=== PATIENT | female | born 1970 | race Two or more races ===

== ENCOUNTER 2025-04-08 12:41 | Inpatient (IN) | payer MEDICAID, SELFPAY ==
[2025-04-08] VITALS (12 sets, daily range): BP systolic 153–198; BP diastolic 79–153; PULSE 89–118; RESP 19–28; TEMP 36.2–36.7; O2SAT 94–100; BMI 30.5
--- NOTE | 2025-04-08 12:46 | EKG_ITS ---
[facility] Test Date: 2025-04-08 Pat Name: GEOFF MCKEON Department: Room: - Gender: Female [employer]: : 1970 Requested By: Delfino Aguiar (BREAKDOWN PERSON) Order Number: [id number] Reading MD: Delfino Aguiar (BREAKDOWN PERSON) Measurements Intervals [place] Rate: 90 P: 23 CA: 107 QRS: 7 QRSD: 73 T: 142 QT: 360 QTc: 441 Interpretive Statements SINUS RHYTHM WITH SHORT CA INTERVAL POSSIBLE ANTERIOR MYOCARDIAL INFARCTION , PROBABLY OLD [30 ms Q WAVE IN V3/V4, OR R < 0.2 mV IN V4] MODERATE T-WAVE ABNORMALITY, CONSIDER LATERAL ISCHEMIA [-0.1+ mV T-WAVE IN I/aVL/V5/V6] No previous ECG available for comparison /store/S0/[id number].pdf
--- NOTE | 2025-04-08 13:06 | XR_ITS ---
Examination: Abdomen sonogram, Limited Date and time of exam: April 08, 2025 1312 hours INDICATIONS: Epigastric pain beginning one month ago Technique: Real-time byrd scale transabdominal sonographic images of the upper abdomen obtained. Findings: Normal gallbladder Normal common bile duct 0.3 cm Pancreatic head 1.6 cm Liver nonenlarged, I do not see significant fluid around the liver Normal hepatopedal portal venous flow Patent IVC IMPRESSION: Normal gallbladder Normal common bile duct No focal liver lesions I do not see definite free fluid around the liver, there is right pleural fluid
--- NOTE | 2025-04-08 13:06 | XR_ITS ---
Examination: PA lateral chest 2 views TECHNIQUE: Upright PA and lateral chest 2 views Date and time: April 08, 2025, 1357 hours INDICATIONS: Shortness of breath chest pain 1 month. FINDINGS: Mild chronic heart failure pattern Marked enlargement cardiac contour Prominent vascular congestion Fluid in the fissures and moderate to large bilateral pleural effusions Moderate osteopenia 3 mm pulmonary nodule left upper lobe IMPRESSION: While chronic heart failure pattern. Marked enlargement cardiac contour, differential would include pericardial effusion
--- NOTE | 2025-04-08 13:06 | PD.EDRME ---
Rapid Medical Screening Exam RME Arrival date/time: 04/08/25 12:41 54-year-old female presents to the Emergency Department today with complaint of bilateral lower extremity swelling and upper abdominal pain with shortness of breath Chief Complaint: Shortness of Breath/Dyspnea Vital signs: Vital Signs Temperature 98.0 F 04/08/25 12:58 Pulse Rate 92 04/08/25 12:58 Respiratory Rate 19 04/08/25 12:58 Blood Pressure 154/79 H 04/08/25 12:58 Pulse Oximetry (%) 96 04/08/25 12:58 Oxygen Delivery Method Room Air 04/08/25 12:58
[2025-04-08 13:59] LABS: Basophils # (Auto) 0.0 Thou/mm3 (0.0-0.2); Basophils % (Auto) 0 % (0-2.5); Eosinophils # (Auto) 0.0 Thou/mm3 (0.0-0.5); Eosinophils % (Auto) 0 % (0-10); Immature Granulocytes Auto 0.01 Thou/mm3 (0.00-0.00); Lymphocytes # (Auto) 0.6 Thou/mm3 (1.0-4.8); Lymphocytes % (Auto) 15 % (10-50); Mean Corpuscular HGB Conc 31.7 g/dl (31.0-37.0); Mean Corpuscular Hemoglobin 28.4 pg (25.0-35.0); Mean Corpuscular Volume 90 fL (80-100); Monocytes # (Auto) 0.3 Thou/mm3 (0.0-0.8); Monocytes % (Auto) 6 % (0-12); Neutrophils # (Auto) 3.3 Thou/mm3 (1.8-7.7); Neutrophils % (Auto) 78 % (37-80); Nucleated Red Blood Cell # 0.00 Thou/mm3 (0.00-0.00); Nucleated Red Blood Cell % 0 /100 WBC (0); Platelet Count 172 Thou/mm3 (140-440); RDW Standard Deviation 45.0 fL (36.4-46.3); Red Blood Count 2.01 Miln/mm3 (4.00-5.20); White Blood Count 4.2 Thou/mm3 (3.6-11.0)
[2025-04-08 14:08] LABS: INR 1.0 (0.9-1.3); Partial Thromboplastin Time 24.2 Seconds (22.0-36.0); Prothrombin Time 10.9 Seconds (9.0-12.2)
[2025-04-08 14:16] LABS: B-Type Natriuretic Peptide > 3280 pg/mL (0-100)
[2025-04-08 14:17] LABS: Alanine Aminotransferase 12 U/L (10-49); Albumin, Serum 3.5 gm/dL (3.5-5.0); Albumin/Globulin Ratio 1.4 (1.2-2.2); Alkaline Phosphatase 108 U/L (46-116); Anion Gap 12 (7-16); Aspartate Amino Transferase 17 U/L (0-34); BUN/Creatinine Ratio 9 Ratio (12-20); Bilirubin,Total 0.2 mg/dL (0.3-1.2); Blood Urea Nitrogen 71 mg/dL (9-23); Calcium 7.0 mg/dL (8.3-10.6); Calcium (Corrected) 7.4 mg/dL (8.5-10.1); Carbon Dioxide 22.3 mMol/L (20.0-31.0); Chloride 105 mMol/L (98-107); Creatinine (Component) 8.0 mg/dL (0.6-1.3); Estimated Creatinine Clearance 6.5 mL/min (>60); Globulin 2.5 gm/dL (2.3-3.5); Glucose 187 mg/dL (74-106); Lipase 39 U/L (12-53); Magnesium 1.9 mg/dL (1.6-2.6); Osmolality,Calculated 303 (275-295); Sodium 139 mMol/L (136-145); Total Protein 6.0 gm/dL (5.7-8.2); eGFR 6 See Note
[2025-04-08 14:20] LABS: Potassium 6.2 mMol/L (3.4-5.1); Troponin I 0.055 ng/mL (0.0-0.045)
[2025-04-08 14:36] LABS: Hematocrit 18.0 % (36.0-46.0); Hemoglobin 5.7 g/dL (12.0-16.0)
[2025-04-08 14:50] LABS: Hepatitis A Antibody IgM Non Reactive (Non React); Hepatitis B Core Antibody IgM Non Reactive (Non React); Hepatitis B Surface Antigen Non Reactive (Non React); Hepatitis C Antibody Non Reactive (Non React)
[2025-04-08 15:01] LABS: Path Review Blood Smear Sent to Pathologist
[2025-04-08 17:00] LABS: Collection Type, Urine Clean Catch
[2025-04-08 17:09] LABS: Bilirubin,Urine Negative (Negative); Blood,Urine 2+ (Negative); Clarity,Urine Clear (Clear/Hazy); Color,Urine Lt-Yellow (Lt Yel-Yel); Glucose, Urine 1+ (Negative); Ketones,Urine Negative (Negative); Leukocyte Esterase,Urine Negative (Negative); Nitrite,Urine Negative (Negative); PH,Urine 7.0 (5.0-7.0); Protein,Urine 3+ (Neg - Trace); RBC,Urine 9 /hpf (0-3); Specific Gravity,Urine 1.014 (1.001-1.035); Squamous Epithelial Cell,Urine 2 /hpf (0-5); Urobilinogen,Urine Negative mg/dL (0.0-1.0); WBC,Urine 6 /hpf (0-5)
[2025-04-08 17:24] LABS: Amphetamine/Methamp Scrn,U Negative (Negative); Barbiturate Screen,Urine Negative (Negative); Benzodiazepines Screen,Urine Negative (Negative); Benzoylecgonine Screen, Ur Negative (Negative); Fentanyl Screen,Urine Negative (Negative); Opiate Screen,Urine Negative (Negative); THC Screen,Urine Negative (Negative)
--- NOTE | 2025-04-08 19:10 | XR_ITS ---
Examination: Retroperitoneal ultrasound, complete Technique: Multiple high resolution grayscale images of the retroperitoneum obtained, including kidneys and bladder. Exam date and time:April 08, 2025 1927 hours INDICATIONS: Acute renal insufficiency on medical examination today. FINDINGS: Right kidney 9.2 cm renal cortical infarct 5 cm Left kidney 10.0 cm renal cortical 1.3 cm No hydronephrosis or renal calculi No bladder mass or bladder calculi Bladder prevoid volume 78 cc unable to void IMPRESSION: Small kidneys with bilateral renal cortical thinning No hydronephrosis
--- NOTE | 2025-04-08 19:13 | PD.EDSOB ---
ED SOB =RME/HPI General Chief Complaint: Shortness of Breath/Dyspnea Stated Complaint: SOB; CAN'T BREATH X 1 MONTH; FEET SWOLLEN Time Seen by Provider: 04/08/25 15:18 Arrival date/time: 04/08/25 12:41 RME / HPI RME / HPI Narrative: 54-year-old female presents to the Emergency Department today with complaint of bilateral lower extremity swelling and upper abdominal pain with shortness of breath. Patient has been ongoing for more than a month. Severity of symptoms moderate. Patient also complaining of dizziness, and easy fatigability. Patient used to see a power plant inspector more than a year ago however because of insurance problem stopped seeing power plant inspector. Patient is not dialysis patient told me that she is still making urine, more than 5 times a day. No fever no vomiting no chest pain. Related Data Allergies Allergy/AdvReac Type Severity Reaction Status Date / Time No Known Allergies Allergy Verified 04/08/25 12:44 Review of Systems Review of Systems Narrative Review of Systems: Review of system reviewed and within normal limits except mentioned in HPI ED Exam Narrative Physical exam: VITAL SIGNS: Reviewed. GENERAL APPEARANCE: Alert and interactive, follows commands, no acute distress, HEAD AND FACE: Non-traumatic. ENT: PERRL, pale conjunctiva, eyelid no trauma, Mucous membrane dry NECK: Supple, nontender, no nuchal rigidity. CHEST: No tenderness, no crepitus, no paradoxical movement, no retractions. LUNGS: Clear, well ventilated, symmetric, no rales, no wheezing, no ronchi, no stridor, good breath sounds bilaterally. HEART: Regular rate, regular rhythm, no murmur, no gallops. ABDOMEN: Soft, positive bowel sounds, nondistended, no guarding, nontender, no rebound, no masses, RECTAL: Deferred. GENITAL: Deferred. NEUROLOGICAL: Gross motor function intact sensory function intact, Appropriate for age. MUSCULOSKELETAL: low back nontender, full range of motion. EXTREMITIES:+ Bilateral lower extremity edema, nontender, full range of motion. SKIN: Color pale, dry, no rash, no lacerations, no abrasions, no contusions. LYMPHATICS: Deferred. Course Quality Measures none Orders Category Date Time Status Bedside Blood Glucose Q2HX3 Care 04/08/25 19:11 Active COVID-19 Screening Questionnaire NOW Care 04/08/25 19:56 Active Decision to Admit X1 Care 04/08/25 19:56 Completed EKG (ED ONLY) *Do not use* NOW Care 04/08/25 12:46 Completed Transfuse,blood/blood products ONCE Care 04/08/25 19:10 Active Consult to Nephrology Stat Cons 04/08/25 19:13 Ordered EKG (ED Only) Stat Exams 04/08/25 12:46 Draft US gall bladder Stat Exams 04/08/25 13:06 Completed US renal BI Stat Exams 04/08/25 19:10 Completed XR chest 2V Stat Exams 04/08/25 13:06 Completed B-Type Natriuretic Peptide Stat Lab 04/08/25 13:40 Completed CBC Stat Lab 04/08/25 13:40 Completed Comprehensive Metabolic Panel Stat Lab 04/08/25 13:40 Completed Drug Screen,Urine Stat Lab 04/08/25 16:37 Completed Hepatitis Acute Panel Stat Lab 04/08/25 13:40 Completed Lipase Stat Lab 04/08/25 13:40 Completed Magnesium Stat Lab 04/08/25 13:40 Completed Partial Thromboplastin Time Stat Lab 04/08/25 13:40 Completed Path Review Blood Smear Stat Lab 04/08/25 13:40 Completed Prothrombin Time with INR Stat Lab 04/08/25 13:40 Completed Troponin I Stat Lab 04/08/25 13:40 Completed Type and Screen Stat Lab 04/08/25 19:26 Results Urinalysis Stat Lab 04/08/25 16:37 Completed prbc [Red Blood Cells] Stat Lab 04/08/25 19:26 Results ALBUTEROL RT 3ml [Proventil Rt 3ml] Med 04/08/25 19:10 Discontinued 5 mg INH X1 ONE Calcium Gluc/Ns 1000MG Ivpb [Calcium Gluc/Ns 1000mg Med 04/08/25 19:12 Discontinued Ivpb] 1,000 mg in 50 ml IV X1 Dextrose 50% Syr [D50w Syringe Abboject] Med 04/08/25 19:10 Active 25 ml IV Q15MIN PRN Dextrose 50% Syr [D50w Syringe Abboject] Med 04/08/25 19:10 Active 50 ml IV Q15MIN PRN Dextrose 50% Syr [D50w Syringe Abboject] Med 04/08/25 19:46 Discontinued 50 ml IVP X1 ONE Glucagon Inj Med 04/08/25 19:10 Active 1 mg IM Q15MIN PRN Insulin Regular Med 04/08/25 19:10 Discontinued 5 unit IV X1 ONE Sod Polystyrene Sulfon Susp [Kayexalate Susp] Med 04/08/25 19:10 Discontinued 30 gm PO X1 ONE Sodium Bicarb 8.4% 50ml Vial* Med 04/08/25 19:51 Discontinued 50 meq IV X1 ONE hydrALAZINE INJ [Apresoline Inj] Med 04/08/25 19:47 Discontinued 20 mg IVP X1 ONE Vital Signs Vital signs: Vital Signs Temperature 98.0 F 04/08/25 12:58 Pulse Rate 92 04/08/25 12:58 Respiratory Rate 19 04/08/25 12:58 Blood Pressure 154/79 H 04/08/25 12:58 Pulse Oximetry (%) 96 04/08/25 12:58 Oxygen Delivery Method Room Air 04/08/25 12:58 Shortness of Breath / Dyspnea MDM Narrative MDM Narrative:: 54-year-old female presents to the Emergency Department today with complaint of bilateral lower extremity swelling and upper abdominal pain with shortness of breath. Patient has been ongoing for more than a month. Severity of symptoms moderate. Patient also complaining of dizziness, and easy fatigability. Patient used to see a power plant inspector more than a year ago however because of insurance problem stopped seeing power plant inspector. Patient is not dialysis patient told me that she is still making urine, more than 5 times a day. No fever no vomiting no chest pain. EKG shows sinus rhythm, ventricular rate of 90 bpm, and no ST segment elevation or depression noted. Patient's hemoglobin was noted to be 5.7 hematocrit of 18, potassium 6.2 creatinine of 8.0 BUN of 71. EGFR of 6 troponin 0.055 BNP of more than 3280 chest x-ray came back unremarkable urinalysis no UTI. Patient received 2 units of packed RBC, patient received Kayexalate, calcium gluconate, sodium bicarb, insulin IV albuterol breathing treatment for hyperkalemia. I consulted Dr Mcgovern, power plant inspector, who told me to admit the patient, bring down the procedure room give 2 units of packed RBC and she will discuss with the patient regarding dialysis. In the morning If the potassium will not go down below 6 patient is to have emergency hemodialysis tonight. Patient data External records reviewed:: None Clinical information provided by:: patient Social determinants that could affect healthcare access:: none Patient has the following chronic illnesses:: Diabetes mellitus, chronic kidney disease How is presenting disease/condition affected by chronic disease/condition?: exacerbated by Evaluation data The following diagnostics were reviewed and interpreted by me:: lab results and radiology exam(s) Lab and/or radiology exams considered but not ordered:: None Interpretation Summary: See results MDM Medications / Prescriptions Medications or Prescriptions considered but not ordered:: None Medication administrations:: Medication Administration History Dextrose (Dextrose 50%-Water Inj 50 Ml Syringe) 25 ml IV Q15MIN PRN PRN Reason: BG 50-70 responsive npo pt Stop: 05/08/25 19:09 Dextrose (Dextrose 50%-Water Inj 50 Ml Syringe) 50 ml IV Q15MIN PRN PRN Reason: BG <50 OR BG <70 & pt unresponsive Stop: 05/08/25 19:09 Glucagon (Glucagon Inj 1 Mg Vial) 1 mg IM Q15MIN PRN PRN Reason: BG <70, and no IV access Discontinued Medications Albuterol (Albuterol Rt 2.5 Mg/3 Ml Nebu) 5 mg INH X1 ONE Stop: 04/08/25 19:11 Last Admin: 04/08/25 19:49 Dose: 5 mg Documented By: ESMER Dextrose (Dextrose 50%-Water Inj 50 Ml Syringe) 50 ml IVP X1 ONE Stop: 04/08/25 19:47 Last Admin: 04/08/25 19:50 Dose: 50 ml Documented By: AVI Hydralazine HCl (Hydralazine Inj 20 Mg/Ml Vial) 20 mg IVP X1 ONE Stop: 04/08/25 19:48 Last Admin: 04/08/25 20:00 Dose: 20 mg Documented By: AVI Calcium Gluconate/Sodium Chloride (Calcium Gluc/Ns 1000mg Ivpb) 1,000 mg in 50 mls @ 50 mls/hr IV X1 ONE Stop: 04/08/25 20:11 Last Admin: 04/08/25 20:15 Dose: 50 mls/hr Documented By: AVI Insulin Human Regular (Insulin Hum Regular 1 Unit/0.01 Ml (Per Unit)) 5 unit IV X1 ONE Stop: 04/08/25 19:11 Last Admin: 04/08/25 19:51 Dose: 5 unit Documented By: AVI Co-signed By: HARVEY Sodium Bicarbonate (Sodium Bicarb Inj 8.4% 1 Meq/Ml 50 Ml Vial) 50 meq IV X1 ONE Stop: 04/08/25 19:52 Last Admin: 04/08/25 20:00 Dose: 50 meq Documented By: AVI Sodium Polystyrene Sulfonate (Sod Polystyrene Sulfon Susp 15 Gm/60 Ml Btl) 30 gm PO X1 ONE Stop: 04/08/25 19:11 Last Admin: 04/08/25 19:51 Dose: 30 gm Documented By: AVI Kayexalate, insulin 5 units IV, calcium gluconate, hydralazine IV, D50 water, sodium bicarbonate, albuterol breathing treatment Consultations Consultation(s) initiated? (list below): Yes Consultation #1 (Physician, Specialty, Details): Spoke with Dr Mcgovern, power plant inspector, thank you . Diagnosis Shortness of Breath Differential Diagnosis: congestive heart failure and community acquired pneumonia Most likely diagnosis given after review of the tests above:: ESRD, hyperkalemia, anemia Admission Indicated Admission indicated?: indicated Admission Request Was there a request for admission?: Yes Admission Attestation Admission request attestation: Discussed case with [Dr. Ramos] from Hospitalist service regarding admission. Discussed patients ED course, exam findings, labs, and radiology results. The Hospitalist [agrees] to accept the patient for admission. Disposition Plan Disposition Plan: Admit Discharge Plan Plan Patient Disposition: Admit Acute Care w/in Hospital Prescriptions/Referrals Referrals: Tonja Treadwell FNP [Primary Care Provider] - In 1 week Problem List Clinical Impression: Acute hyperkalemia, Severe anemia, End-stage renal disease (ESRD) Patient/Caregiver Discharge Instructions Print Language: Slovenian Stand Alone Forms: Ramonita Award Info., Patient Portal Info Letter
[2025-04-08] MEDS: ALBUTEROL RT 2.5 MG/3 ML NEBU 5 MG INH (19:49)
[2025-04-08] MEDS: DEXTROSE 50%-WATER INJ 50 ML SYRINGE IVP (19:50)
[2025-04-08] MEDS: SOD POLYSTYRENE SULFON SUSP 15 GM/60 ML BTL 30 GM PO (19:51)
[2025-04-08] MEDS: INSULIN HUM REGULAR 1 UNIT/0.01 ML (PER UNIT) 5 UNIT IV (19:51)
[2025-04-08] MEDS: hydrALAZINE INJ 20 MG/ML VIAL IVP (20:00)
[2025-04-08] MEDS: SODIUM BICARB INJ 8.4% 1 mEq/ML 50 ML VIAL 50 MEQ IV (20:00)
--- NOTE | 2025-04-08 20:10 | PC.NURSE ---
pt started to get restless with breathing tx. blood sugar taken 212. rt stopped breathing tx. pt states relief without breathing tx
[2025-04-08] MEDS: CALCIUM GLUC/NS 1000MG IVPB 1,000 MG/50 ML BAG 50 MG IV (20:15)
--- NOTE | 2025-04-08 20:43 | PC.NURSE ---
pt has edema +4
--- NOTE | 2025-04-08 21:37 | ECHO_ITS ---
Transthoracic Echo Report Ht (in): 57 Wt (lb): 129 Exam Location: Echo Lab Status: Inpatient It Systems Manager: Jessi Glover Indications: Procedure Performed: BP: 135 / 78 HR: 73 MEASUREMENTS (Male / Female) Normal Values 2D ECHO LV Diastolic Diameter PLAX 4.0 cm 4.2 - 5.9 / 3.9 - 5.3 cm LV Systolic Diameter PLAX 2.6 cm IVS Diastolic Thickness 1.3 cm 0.6 - 1.0 / 0.6 - 0.9 cm LVPW Diastolic Thickness 1.6 cm 0.6 - 1.0 / 0.6 - 0.9 cm LV Relative Wall Thickness 0.7 LVOT Diameter 1.8 cm LA Volume Index 43.4 cm?/m? 16 - 28 cm?/m? M-MODE AV Cusp Separation MM 1.5 cm DOPPLER AV Peak Velocity 207.0 cm/s AV Peak Gradient 17.1 mmHg AV Mean Gradient 8.0 mmHg AV Velocity Time Integral 47.9 cm LVOT Peak Velocity 125.0 cm/s LVOT Peak Gradient 6.3 mmHg LVOT Velocity Time Integral 29.7 cm LVOT Cardiac Index 3546.6 cm?/min?m? AV Area Cont Eq vti 1.6 cm? AV Area Cont Eq pk 1.5 cm? MV Area PHT 4.2 cm? MR Peak Velocity 569.0 cm/s MR Peak Gradient 129.5 mmHg Mitral E Point Velocity 66.5 cm/s Mitral A Point Velocity 81.0 cm/s Mitral E to A Ratio 0.8 LV E' Lateral Velocity 4.6 cm/s Mitral E to LV E' Lateral Ratio 14.6 LV E' Septal Velocity 5.3 cm/s Mitral E to LV E' Septal Ratio 12.5 TR Peak Velocity 280.7 cm/s TR Peak Gradient 31.5 mmHg PV Peak Velocity 100.0 cm/s PV Peak Gradient 4.0 mmHg FINDINGS Left Ventricle Normal LV size mild global hypokinesis The left ventricular wall thickness is mildly increased. . The ejection fraction is visually estimated at 45 %. Right Ventricle The right ventricle is normal in size The estimated right ventricular systolic pressure, 46 mmHg. Severe PHTN Left Atrium The left atrium is normal by two-dimensional, color flow and Doppler imaging with no structural abnormalities, no thrombus formation present. Right Atrium There is diastolic right atrial bounce in the setting of a pericardial effusion. Atrial Septum The interatrial septum appears normal with no evidence of a shunt. Aorta The aorta is normal by two-dimensional, color flow and Doppler interrogation. Mitral Valve The mitral valve is normal by two-dimensional, color flow and Doppler interrogation.moderate mitral regurgitation. Aortic Valve The aortic valve is trileaflet and normal by two-dimensional, color flow and Doppler interrogation. There is no significant aortic valve regurgitation. Tricuspid Valve The tricuspid valve is normal by two-dimensional, color flow and Doppler interrogation. There is mild to moderate tricuspid valve regurgitation. Pulmonic Valve The pulmonic valve is not well visualized. There is no significant pulmonic valve regurgitation. Vessels The pulmonary artery appears normal. The inferior vena cava pulmonary and hepatic veins appear normal. Pericardium Echocardiographic findings suggest a mildly hemodynamically significant pericardial effusion. Other Findings Moderate to large pleural effusion CONCLUSIONS Indication: CHF Normal size left ventricle with mild global hypokinesis, EF estimated 45%. Mild mitral regurgitation and tricuspid regurgitation Moderate to large Pericardial effusion with no evidence of tamponade Trudy Vinson (Electronically Signed) Final Date: 13 April 2025 16:12
[2025-04-08] MEDS: FUROSEMIDE INJ 10 MG/ML 4ML VIAL 40 MG IVP (21:51)
[2025-04-08] MEDS: ONDANSETRON INJ 2 MG/ML INJ 2 ML 4 MG IVP (22:27)
[2025-04-08 23:30] LABS: Alanine Aminotransferase 14 U/L (10-49); Albumin, Serum 3.7 gm/dL (3.5-5.0); Albumin/Globulin Ratio 1.3 (1.2-2.2); Alkaline Phosphatase 106 U/L (46-116); Anion Gap 15 (7-16); Aspartate Amino Transferase 20 U/L (0-34); BUN/Creatinine Ratio 7 Ratio (12-20); Bilirubin,Total 0.2 mg/dL (0.3-1.2); Blood Urea Nitrogen 53 mg/dL (9-23); Calcium 7.8 mg/dL (8.3-10.6); Calcium (Corrected) 8.0 mg/dL (8.5-10.1); Carbon Dioxide 19.5 mMol/L (20.0-31.0); Chloride 106 mMol/L (98-107); Creatinine (Component) 7.6 mg/dL (0.6-1.3); Estimated Creatinine Clearance 6.8 mL/min (>60); Globulin 2.8 gm/dL (2.3-3.5); Glucose 164 mg/dL (74-106); Osmolality,Calculated 297 (275-295); Phosphorous 5.3 mg/dL (2.4-5.1); Potassium 5.5 mMol/L (3.4-5.1); Sodium 140 mMol/L (136-145); Total Protein 6.5 gm/dL (5.7-8.2); eGFR 6 See Note
[2025-04-08 23:56] LABS: Troponin I 0.118 ng/mL (0.0-0.045)
[2025-04-09] VITALS (30 sets, daily range): BP systolic 151–206; BP diastolic 86–141; PULSE 80–118; RESP 13–31; TEMP 36–36.4; O2SAT 97–100
--- NOTE | 2025-04-09 00:47 | ESHP_ITS ---
Documentation for date of: 04/09/25 [facility] History of Present Illness Chief complaint: Shortness of breath, leg swelling, and abdominal discomfort. History of present illness: 54-year-old female with a history of hypertension, chronic kidney disease (per PCP attributed to diabetes), and type 2 diabetes mellitus presents with worsening shortness of breath, bilateral lower extremity swelling, and abdominal discomfort for approximately 3 months. Symptoms have gradually worsened, with increased swelling and dyspnea over the last month. She denies paroxysmal nocturnal dyspnea but endorses needing multiple pillows to sleep. Earlier chest and abdominal discomfort are described as pain from increased work of breathing rather than true abdominal or cardiac pain. She reports dizziness, easy fatigability, and one episode of vomiting this morning. She has a chronic dry cough for the past 2?3 weeks. She denies fevers, chills, weight gain/loss, chest pain, palpitations, syncope, neuro changes, or recent infections. She previously followed with a department head but stopped over a year ago due to insurance issues. She has never had an echocardiogram and has no known history of heart failure or cardiac disease. She is still making urine (3?4x/day). No tobacco or alcohol use. In the ED, vitals notable for hypertension (BP up to 198/105) and tachycardia (HR 100?118). O2 saturation 94% on room air improved with 3L NC. Labs showed Hgb 5.7, K 6.2, creatinine 8.0, BUN 71, Ca 7.4, BNP 3280, and troponin 0.055. CXR shows chronic CHF pattern with marked cardiomegaly (possible pericardial effusion). Gallbladder US negative for acute pathology, small right pleural effusion noted. EKG: sinus rhythm with short FL, possible old anterior HI, moderate T wave abnormality. ED management included transfusion of 2 units PRBC, hyperkalemia protocol (kayexalate, sodium bicarb), IV calcium gluconate 1g, start oral calcium carbonate 600mg, IV Lasix 40mg, amlodipine 10mg PO, and PRN IV labetalol. Renal diet initiated. Renal ultrasound completed, read pending. Review of Systems: * Constitutional: No fever, chills, weight loss/gain. * Cardiac: No chest pain, palpitations; orthopnea present; no PND. * Respiratory: SOB, dry cough x 2?3 weeks. * GI: One episode of vomiting this morning; abdominal discomfort with SOB; no melena, hematemesis, diarrhea, constipation. * : Making urine 3?4x/day; no dysuria, hematuria. * Neuro: No focal deficits, but feels shaky. * Skin: +Bilateral leg swelling. * All other systems negative unless noted above. Past Medical History: * Hypertension * Chronic kidney disease (etiology per PCP: diabetes) * Type 2 diabetes mellitus Past Surgical History: * None reported Medications (home): * Metformin (held) * Hydrochlorothiazide 25mg daily (held) Allergies: * NKDA Social History: * No tobacco, alcohol, or illicit drug use * Lives with family * Italian-speaking only Family History: * Not contributory per patient Exam Vital Signs Temp Pulse Resp BP Pulse Ox O2 Del Method O2 Flow Rate 97.3 F 117 H 19 160/87 H 98 Room Air 2 04/08/25 23:45 04/08/25 23:45 04/08/25 23:45 04/08/25 23:45 04/08/25 23:45 04/08/25 21:38 04/08/25 23:45 Narrative Exam General: Awake, alert, in mild respiratory distress. HEENT: Anicteric sclera, moist mucous membranes. Neck: No JVD noted. Cardiac: Regular rhythm, normal S1/S2, no murmurs. Lungs: Clear to auscultation except crackles in right lower lung field. Abdomen: Soft, non-tender, non-distended; umbilical hernia present. Extremities: 4+ pitting edema bilaterally. Neuro: Alert and oriented x3, no focal deficits. Skin: No rash or lesions. Results: Labs 04/08/25 13:40 04/08/25 22:20 Labs: Short CBC 04/08/25 Range/Units 13:40 WBC 4.2 (3.6-11.0) Thou/mm3 Hgb 5.7 L* (12.0-16.0) g/dL Hct 18.0 L* (36.0-46.0) % Plt Count 172 (140-440) Thou/mm3 BMP 04/08/25 04/08/25 13:40 22:20 Sodium 139 140 Potassium 6.2 H* 5.5 H D Chloride 105 106 Carbon Dioxide 22.3 19.5 L BUN 71 H 53 H Creatinine 8.0 H* 7.6 H* Glucose 187 H 164 H Calcium 7.0 L 7.8 L Cardiac Enzymes 04/08/25 04/08/25 Range/Units 13:40 22:20 Troponin I 0.055 H* 0.118 H* (0.0-0.045) ng/mL Liver Function 04/08/25 04/08/25 Range/Units 13:40 22:20 Total Bilirubin 0.2 L 0.2 L (0.3-1.2) mg/dL AST 17 20 (0-34) U/L ALT 12 14 (10-49) U/L Alkaline Phosphatase 108 106 (46-116) U/L Albumin 3.5 3.7 (3.5-5.0) gm/dL Urine 04/08/25 Range/Units 16:37 Urine Color Lt-Yellow (Lt Yel-Yel) Urine Clarity Clear (Clear/Hazy) Urine pH 7.0 (5.0-7.0) Ur Specific [place] 1.014 (1.001-1.035) Urine Protein 3+ A (Neg - Trace) Urine Glucose (UA) 1+ A (Negative) Quality Measures Quality Measures VTE prophylaxis Medications Home Medications and Allergies Home Medications ?Medication ?Instructions ?Recorded ?Confirmed ?Type hydrochlorothiazide 25 mg tablet 25 mg PO QAM 04/08/25 04/08/25 History metformin 1,000 mg tablet 1,000 mg PO BID 04/08/2505/25 History Allergies Allergy/AdvReac Type Severity Reaction Status Date / Time No Known Allergies Allergy Verified 04/08/25 12:44 Visit Medications Acetaminophen (Acetaminophen 325 Mg Tablet) 650 mg PO Q6H PRN PRN Reason: Fever >101.5 Stop: 05/08/25 21:28 Acetaminophen (Acetaminophen 325 Mg Tablet) 650 mg PO Q6H PRN PRN Reason: PAIN SCALE 1-3 (mild Stop: 05/08/25 21:33 Calcium Carbonate (Calcium Carbonate 600 Mg Tablet) 600 mg PO QDAY TEMO Stop: 05/09/25 08:59 Dextrose (Dextrose 50%-Water Inj 50 Ml Syringe) 25 ml IV Q15MIN PRN PRN Reason: BG 50-70 responsive npo pt Stop: 05/08/25 19:09 Dextrose (Dextrose 50%-Water Inj 50 Ml Syringe) 50 ml IV Q15MIN PRN PRN Reason: BG <50 OR BG <70 & pt unresponsive Stop: 05/08/25 19:09 Furosemide (Furosemide Inj 10 Mg/Ml 4ml Vial) 40 mg IVP QDAY TEMO Stop: 05/09/25 08:59 Glucagon (Glucagon Inj 1 Mg Vial) 1 mg IM Q15MIN PRN PRN Reason: BG <70, and no IV access Heparin Sodium (Porcine) (Heparin Sod Inj 5000 Unit/Ml Vial) 5,000 unit SC Q12HR TEMO Stop: 04/23/25 08:59 Ondansetron HCl (Ondansetron Inj 2 Mg/Ml Inj 2 Ml) 4 mg IVP Q6H PRN; Protocol PRN Reason: NAUSEA OR VOMITING Stop: 05/08/25 21:33 Last Admin: 04/08/25 22:27 Dose: 4 mg Sennosides (Senna Tablet) 1 tab PO QDAY PRN; Protocol PRN Reason: constipation Stop: 05/08/25 21:33 Discontinued Medications Albuterol (Albuterol Rt 2.5 Mg/3 Ml Nebu) 5 mg INH X1 ONE Stop: 04/08/25 19:11 Last Admin: 04/08/25 19:49 Dose: 5 mg Dextrose (Dextrose 50%-Water Inj 50 Ml Syringe) 50 ml IVP X1 ONE Stop: 04/08/25 19:47 Last Admin: 04/08/25 19:50 Dose: 50 ml Furosemide (Furosemide Inj 10 Mg/Ml 4ml Vial) 40 mg IVP X1 ONE Stop: 04/08/25 21:14 Last Admin: 04/08/25 21:51 Dose: 40 mg Hydralazine HCl (Hydralazine Inj 20 Mg/Ml Vial) 20 mg IVP X1 ONE Stop: 04/08/25 19:48 Last Admin: 04/08/25 20:00 Dose: 20 mg Calcium Gluconate/Sodium Chloride (Calcium Gluc/Ns 1000mg Ivpb) 1,000 mg in 50 mls @ 50 mls/hr IV X1 ONE Stop: 04/08/25 20:11 Last Infusion: 04/08/25 21:37 Dose: Infused Insulin Human Regular (Insulin Hum Regular 1 Unit/0.01 Ml (Per Unit)) 5 unit IV X1 ONE Stop: 04/08/25 19:11 Last Admin: 04/08/25 19:51 Dose: 5 unit Sodium Bicarbonate (Sodium Bicarb Inj 8.4% 1 Meq/Ml 50 Ml Vial) 50 meq IV X1 ONE Stop: 04/08/25 19:52 Last Admin: 04/08/25 20:00 Dose: 50 meq Sodium Polystyrene Sulfonate (Sod Polystyrene Sulfon Susp 15 Gm/60 Ml Btl) 30 gm PO X1 ONE Stop: 04/08/25 19:11 Last Admin: 04/08/25 19:51 Dose: 30 gm Assessment & Plan Plan 54F with HTN, DM2, and CKD5 (small echogenic kidneys with cortical thinning), presenting with progressive dyspnea, anasarca, severe anemia, and hyperkalemia, found to have cardiomegaly with possible pericardial effusion, admitted for volume management and nephrology evaluation. # Chronic kidney disease, stage 5 (ESRD not yet on dialysis) Likely progression of diabetic nephropathy; baseline renal function unknown. Cr improved slightly from 8.0 --> 7.6 after initial ED management. Bicarb decreased from 22.3 --> 19.5, suggesting mild metabolic acidosis. Renal ultrasound: small kidneys with bilateral renal cortical thinning, no hydronephrosis, consistent with chronic irreversible kidney disease. Still making urine. Plan: * Continue nephrology consult * Strict I/O, daily weights * Avoid nephrotoxic meds * Renal diet * Monitor for dialysis indications (refractory hyperkalemia, volume overload, uremic symptoms) * Repeat BMP # Hyperkalemia Initial K 6.2 --> 5.5 after hyperkalemia protocol (kayexalate, sodium bicarb, calcium gluconate, Lasix). No ECG changes. Down-trending; no additional kayexalate given at this time per guideline-based approach. Plan: * Continue telemetry monitoring * Low potassium renal diet * Lasix for kaliuresis while monitoring volume status * Repeat BMP at 5 AM; if >/=5.5, consider additional potassium binder vs. nephrology-directed intervention # Anemia, unspecified Hgb 5.7 on admission; multifactorial (likely CKD-related anemia ? iron deficiency). Receiving 2 units PRBC; post-transfusion CBC pending. Plan: * Complete transfusion, monitor CBC post-transfusion * Iron studies, ferritin, B12, folate, reticulocyte count * Consider MONIQUE after nephrology evaluation # Heart failure, unspecified # Anasarca BNP 3280, CXR shows CHF pattern with marked cardiomegaly (possible pericardial effusion). Troponin abdoulaye slightly from 0.055 --> 0.118, likely due to demand ischemia from anemia/renal failure; no ischemic symptoms. Crackles RLL, 4+ LE edema. Plan: * Order echocardiogram to assess EF and pericardial effusion * Continue IV Lasix 40 mg; reassess response and urine output * Strict I/O, daily weights * Cardiology consult if echo abnormal or troponin continues to rise # Hypertension Poorly controlled; BP up to 198/105 in ED. Currently on amlodipine 10 mg daily with PRN IV labetalol. Plan: * Continue current regimen * Monitor BP q4h; target <150/90 * Avoid rapid BP reduction given CKD and anemia # Hypoxemia O2 sat 94% RA improved with 3L NC; likely due to CHF and small right pleural effusion. Plan: * Wean O2 as tolerated to keep SpO2 >92% * Monitor respiratory status # Umbilical hernia without obstruction or gangrene Incidental finding, not acutely incarcerated. Plan: * Monitor; outpatient surgical referral if symptomatic Health Maintenance: Disposition: Admit to telemetry Feeding: Renal diet Thromboprophylaxis: SQ heparin GI prophylaxis: Not indicated Code Status: Full code ----- Plan discussed with attending physician Dr. Stefanie Al MD PGY-1 Internal Medicine Attending Provider Attestation/Addendum I attest that I was physically present for the evaluation, physical examination, lab and imaging review of the patient with the residents. I discussed the case with the residents and agree with the findings and plans of care as documented above. After examination of the patient and review of the clinical data I feel that this patient needs admission to the hospital for further treatment/evaluation Sharon Watts MD
[2025-04-09 05:04] LABS: Troponin I 0.869 ng/mL (0.0-0.045)
--- NOTE | 2025-04-09 05:05 | PC.NURSE ---
Called hospitalist spoke to Dr. Al, made aware of critical lab trop 0.869. Also made aware 2 units of PRBCs completed at 0450 and still no urine output; now pt feels short of breath again. Pt currently on 2L NC SpO2 96-99%. New order to place barber catheter..
--- NOTE | 2025-04-09 05:09 | EKG_ITS ---
[facility] Test Date: 2025-04-09 Pat Name: GEOFF MCKEON 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
--- NOTE | 2025-04-09 05:29 | XR_ITS ---
Examination: AP chest single view Technique one AP portable semiupright chest single view Date and time: April 09, 2025, 0657 hours Comparison April 08, 2025 INDICATIONS: Chest pain shortness of breath today. FINDINGS: Moderate CHF Moderately large pericardial contour, prominent vascular congestion with perihilar basilar edema Significant bilateral pleural effusions 3 mm pulmonary nodule left upper lobe IMPRESSION: Moderate CHF
--- NOTE | 2025-04-09 05:30 | PC.NURSE ---
Called hospitalist spoke to Dr. Al/Dr. Anthony, made aware barber catheter placed 500ml output. Respiratory rate fluctuating between 20-24/min. Per MD, will order Chest XR.
--- NOTE | 2025-04-09 05:34 | PC.RT ---
ekg done at 0522, pt on 4l nc with hr 108, RR25, spo2 93%.
[2025-04-09] MEDS: FUROSEMIDE INJ 10 MG/ML 4ML VIAL 40 MG IVP (07:49)
--- NOTE | 2025-04-09 07:59 | PC.NURSE ---
BIOLOGY LABORATORY ASSISTANT called related to patients increased work of breathing, elevated heart rate, respirations and blood pressure. Per Dr. Hancock and Dr. Peter emergent dialysis will be ordered and patient has been placed on bipap.
--- NOTE | 2025-04-09 08:09 | EVENTNT_ITS ---
<Statement entered by Aneesh Hancock MD - 04/12/25 14:38> I reviewed above note and agree with findings and plans. I have also personally examined the patient with medicine team and went over assessment and plan with medical team including consumer insights intern and resident physician. Documentation for date of: 04/09/25 Event Note Event Note: Rapid Response Room:?268 Time: 07:52 Reason for Call:?Increased work of breathing Patient presentation:?Patient had increased work of breathing, with severe shortness of breath. Pt was Sitting at side of bed as she could not lay on the bed, saturating on 10L via oxymask. Temperature 96.9 F, BP 176/103, heart rate 105, respiration rate 26, O2 sat 99 on 10 L OxyMask. Events: Dr. Hancock and Dr. Peter went to bedside to evaluate patient. Patient had increased work of breathing. Reviewed patient's chart and labs from overnight. Called Dr. Mcgovern for urgent hemodialysis. Pt is placed on BiPAP and stat ABG is ordered. Discussed with ICU team, who plan to do central line for temporary catheter placement later today for urgent dialysis. IR unavailable today. Assessment:?Acute CHF exacerbation, likely with cardiorenal syndrome. New orders:? - Urgent hemodialysis - Central line placement - Ordered BiPAP - Bumex 2mg IVP one time dose - ABG Patient was discussed with the attending, Dr. Hancock , and senior resident Dr. Peter , PGY-2. Chente Pickens, PGY-1
[2025-04-09] MEDS: BUMETANIDE INJ 0.25 MG/ML VIAL 4 ML 2 MG IVP ×2 (08:24→20:23)
[2025-04-09 08:31] LABS: Basophils # (Auto) 0.0 Thou/mm3 (0.0-0.2); Basophils % (Auto) 0 % (0-2.5); Eosinophils # (Auto) 0.0 Thou/mm3 (0.0-0.5); Eosinophils % (Auto) 0 % (0-10); Hematocrit 27.9 % (36.0-46.0); Hemoglobin 9.2 g/dL (12.0-16.0); Immature Granulocytes Auto 0.02 Thou/mm3 (0.00-0.00); Lymphocytes # (Auto) 0.4 Thou/mm3 (1.0-4.8); Lymphocytes % (Auto) 8 % (10-50); Mean Corpuscular HGB Conc 33.0 g/dl (31.0-37.0); Mean Corpuscular Hemoglobin 29.1 pg (25.0-35.0); Mean Corpuscular Volume 88 fL (80-100); Monocytes # (Auto) 0.2 Thou/mm3 (0.0-0.8); Monocytes % (Auto) 4 % (0-12); Neutrophils # (Auto) 4.8 Thou/mm3 (1.8-7.7); Neutrophils % (Auto) 87 % (37-80); Nucleated Red Blood Cell # 0.00 Thou/mm3 (0.00-0.00); Nucleated Red Blood Cell % 0 /100 WBC (0); Platelet Count 185 Thou/mm3 (140-440); RDW Standard Deviation 44.7 fL (36.4-46.3); Red Blood Count 3.16 Miln/mm3 (4.00-5.20); White Blood Count 5.5 Thou/mm3 (3.6-11.0)
[2025-04-09 08:49] LABS: Allen Test Performed/OK; Base Excess -6 (-3-3); HCO3 20 mEq/L (20-26); Inspired Oxygen, FIO2 21 %; O2 Saturation 96 % (91-98); PCO2 40 mmHg (32.0-48.0); PO2 78 mmHg (83-108); Puncture Site Left Radial; pH, Arterial 7.31 (7.35-7.45)
[2025-04-09 08:55] LABS: Parathyroid Hormone Intact 642.4 pg/ml (18.5-88.0)
[2025-04-09 08:58] LABS: Ferritin 35 ng/mL (7.3-270.7); Iron 38 mcg/dL (50-170); Percent Iron Saturation 13 % (20-55); Total Iron Binding Capacity 273 mcg/dL (250-425); Unsaturated Iron Binding 235 (225-295)
[2025-04-09 08:59] LABS: Alanine Aminotransferase 13 U/L (10-49); Albumin, Serum 3.7 gm/dL (3.5-5.0); Albumin/Globulin Ratio 1.4 (1.2-2.2); Alkaline Phosphatase 111 U/L (46-116); Anion Gap 15 (7-16); Aspartate Amino Transferase 23 U/L (0-34); BUN/Creatinine Ratio 8 Ratio (12-20); Bilirubin,Total 0.3 mg/dL (0.3-1.2); Blood Urea Nitrogen 61 mg/dL (9-23); Calcium 7.1 mg/dL (8.3-10.6); Calcium (Corrected) 7.3 mg/dL (8.5-10.1); Carbon Dioxide 18.9 mMol/L (20.0-31.0); Chloride 106 mMol/L (98-107); Creatinine (Component) 7.7 mg/dL (0.6-1.3); Estimated Creatinine Clearance 6.7 mL/min (>60); Globulin 2.6 gm/dL (2.3-3.5); Glucose 168 mg/dL (74-106); Magnesium 1.9 mg/dL (1.6-2.6); Osmolality,Calculated 300 (275-295); Phosphorous 6.5 mg/dL (2.4-5.1); Potassium 5.5 mMol/L (3.4-5.1); Sodium 140 mMol/L (136-145); Thyroid Stimulating Hormone 3.45 uIU/mL (0.55-4.78); Total Protein 6.3 gm/dL (5.7-8.2); eGFR 6 See Note
--- NOTE | 2025-04-09 10:09 | ESPR_ITS ---
<Statement entered by Aneesh Hancock MD - 04/12/25 14:38> I reviewed above note and agree with findings and plans. I have also personally examined the patient with medicine team and went over assessment and plan with medical team including manager internal and resident physician. <Statement entered by Lorena Peter MD - 04/09/25 18:45> Pt has at a rapid response for increase work of breath and severe SOB, Pt is in fluid overload state and labs are significant for Cr 7.8, BUN 62, Bicarb 14, GFR 6. Pt is given Lasix 40mg IV and Bumex 2mg IV and pt had minimal urine output despite aggressive diaureses. Urgent dialysis is requested with Dr. Mcgovern, will repeat labs post dialysis. Pt is placed on Bipap, will remove bipap overnight. Pt remained hypertensive post dialysis. Ordered Amlodipine and coreg. Will continue to monitor labs and start Bumex 2mg BID. Patient was seen and examined by me personally. I have directly supervised and reviewed documentation by the team resident and agree with its findings. ------- Plan of care was discussed with the attending, Dr. Santi Peter, PGY-2 Documentation for date of: 04/09/25 Subjective Subjective Interval history: Overnight events: Patient admitted overnight. Patient was seen and examined at bedside. AM vitals and labs reviewed. Rapid response was called earlier today for increased work of breathing. Patient was put on BiPAP pending temporary dialysis catheter placement for urgent hemodialysis. A.m. labs were significant for H&H of 9.2/27.9, ABG pH 7.31, potassium 5.5, bicarb 18.9, BUN 61, creatinine 7.7, GFR 6, troponin 0.869. Patient had received 2 units of blood in the evening prior to admission, but this seems to have worsened her breathing as the patient became fluid overloaded. Repeat renal panel and troponins ordered. Ordered additional 2mg of Bumex after rapid response. Patient creating urine as noticed in Rodriguez bag. Review of systems otherwise negative except for what is mentioned above. Exam Vital Signs Temp Pulse Resp BP Pulse Ox O2 Del Method O2 Flow Rate 96.9 F 95 23 H 176/103 H 98 Oxy Mask 10 04/09/25 08:00 04/09/25 09:56 04/09/25 09:56 04/09/25 08:24 04/09/25 09:56 04/09/25 08:00 04/09/25 08:00 FiO2 30 04/09/25 09:56 Narrative Exam Physical Exam: General: Alert, acute distress. Skin: Warm, dry, intact, no obvious rash. Head: Normocephalic, atraumatic. Eye: Normal conjunctiva, PERRL. Cardiovascular: Tachycardic, regular rhythm, no murmur, +S1/S2. Respiratory: Lungs are clear to auscultation, respirations unlabored, no crackles, no wheezing. Gastrointestinal: Soft, nontender, non-distended. No guarding or rebound tenderness. Extremities: BLE edema, no cyanosis, no clubbing. Neuro: No focal deficits observed. Conversant, moving all extremities. No overt cerebellar signs/incoordination. Psychiatric: Cooperative, appropriate affect. Objective Labs 04/09/25 07:50 04/09/25 10:15 Labs: Laboratory Results - last 24 hr 04/08/25 04/08/25 04/08/25 13:40 16:37 19:26 WBC 4.2 RBC 2.01 L Hgb 5.7 L* Hct 18.0 L* MCV 90 MCH 28.4 MCHC 31.7 RDW Std Deviation 45.0 Plt Count 172 Neut % (Auto) 78 Lymph % (Auto) 15 [place] % (Auto) 6 Eos % (Auto) 0 Baso % (Auto) 0 Neut # (Auto) 3.3 Lymph # (Auto) 0.6 L [place] # (Auto) 0.3 Eos # (Auto) 0.0 Baso # (Auto) 0.0 Immature Gran # (Auto) 0.01 H Absolute Nucleated RBC 0.00 Immature Gran % 0 Nucleated RBC % 0 Smear Path Review Sent to Pathologist PT 10.9 INR 1.0 APTT 24.2 Puncture Site ABG pH ABG pCO2 ABG pO2 ABG HCO3 ABG O2 Saturation ABG Base Excess FiO2 Sodium 139 Potassium 6.2 H* Chloride 105 Carbon Dioxide 22.3 Anion Gap 12 BUN 71 H Creatinine 8.0 H* Estim Creat Clear Calc 6.5 L eGFR 6 L* BUN/Creatinine Ratio 9 L Glucose [address] Glu mg/dL Cancelled Hemoglobin A1c Cancelled Calculated Osmolality 303 H Calcium 7.0 L Corrected Calcium 7.4 L Phosphorus Magnesium 1.9 Iron TIBC Iron Saturation Unsat Iron Binding Ferritin Total Bilirubin 0.2 L AST 17 ALT 12 Alkaline Phosphatase 108 Troponin I 0.055 H* B-Natriuretic Peptide > 3280 H* Total Protein 6.0 Albumin 3.5 Globulin 2.5 Albumin/Globulin Ratio 1.4 Lipase 39 TSH PTH Intact Ur Collection Type Clean Catch Urine Color Lt-Yellow Urine Clarity Clear Urine pH 7.0 Ur Specific [place] 1.014 Urine Protein 3+ A Urine Glucose (UA) 1+ A Urine Ketones Negative Urine Blood 2+ A Urine Nitrite Negative Urine Bilirubin Negative Urine Urobilinogen (Auto) Negative Ur Leukocyte Esterase Negative Urine RBC 9 H Urine WBC 6 H Ur Squamous Epith Cells 2 Urine Bacteria None Urine Opiates Screen Negative Urine Fentanyl Screen Negative Ur Barbiturates Screen Negative U Amphetamin/Meth Scrn Negative U Benzodiazepines Scrn Negative U Cocaine Metab Screen Negative U Marijuana (THC) Screen Negative Hepatitis A IgM Ab Non Reactive Hep Bs Antigen Non Reactive Hep B Core IgM Ab Non Reactive Hepatitis C Antibody Non Reactive Blood Type O Negative Antibody Screen NEGATIVE Crossmatch See Detail Blood Bank Wristband ID Yes 04/08/25 04/09/25 04/09/25 22:20 04:10 07:50 WBC 5.5 RBC 3.16 L Hgb 9.2 L D Hct 27.9 L MCV 88 MCH 29.1 MCHC 33.0 RDW Std Deviation 44.7 Plt Count 185 Neut % (Auto) 87 H Lymph % (Auto) 8 L [place] % (Auto) 4 Eos % (Auto) 0 Baso % (Auto) 0 Neut # (Auto) 4.8 Lymph # (Auto) 0.4 L [place] # (Auto) 0.2 Eos # (Auto) 0.0 Baso # (Auto) 0.0 Immature Gran # (Auto) 0.02 H Absolute Nucleated RBC 0.00 Immature Gran % 0 Nucleated RBC % 0 Smear Path Review PT INR APTT Puncture Site ABG pH ABG pCO2 ABG pO2 ABG HCO3 ABG O2 Saturation ABG Base Excess FiO2 Sodium 140 Cancelled 140 Potassium 5.5 H D Cancelled 5.5 H Chloride 106 Cancelled 106 Carbon Dioxide 19.5 L Cancelled 18.9 L Anion Gap 15 Cancelled 15 BUN 53 H Cancelled 61 H Creatinine 7.6 H* Cancelled 7.7 H* Estim Creat Clear Calc 6.8 L Cancelled 6.7 L eGFR 6 L* Cancelled 6 L* BUN/Creatinine Ratio 7 L Cancelled 8 L Glucose 164 H Cancelled [address] Glu mg/dL Hemoglobin A1c Calculated Osmolality 297 H Cancelled 300 H Calcium 7.8 L Cancelled 7.1 L Corrected Calcium 8.0 L Cancelled 7.3 L Phosphorus 5.3 H Cancelled 6.5 H Magnesium Cancelled 1.9 Iron 38 L TIBC 273 Iron Saturation 13 L Unsat Iron Binding 235 Ferritin 35 Total Bilirubin 0.2 L Cancelled 0.3 AST 20 Cancelled 23 ALT 14 Cancelled 13 Alkaline Phosphatase 106 Cancelled 111 Troponin I 0.118 H* 0.869 H* D B-Natriuretic Peptide Total Protein 6.5 Cancelled 6.3 Albumin 3.7 Cancelled 3.7 Globulin 2.8 Cancelled 2.6 Albumin/Globulin Ratio 1.3 Cancelled 1.4 Lipase TSH Cancelled 3.45 PTH Intact 642.4 H Ur Collection Type Urine Color Urine Clarity Urine pH Ur Specific [place] Urine Protein Urine Glucose (UA) Urine Ketones Urine Blood Urine Nitrite Urine Bilirubin Urine Urobilinogen (Auto) Ur Leukocyte Esterase Urine RBC Urine WBC Ur Squamous Epith Cells Urine Bacteria Urine Opiates Screen Urine Fentanyl Screen Ur Barbiturates Screen U Amphetamin/Meth Scrn U Benzodiazepines Scrn U Cocaine Metab Screen U Marijuana (THC) Screen Hepatitis A IgM Ab Hep Bs Antigen Hep B Core IgM Ab Hepatitis C Antibody Blood Type Antibody Screen Crossmatch Blood Bank Wristband ID 04/09/25 08:41 WBC RBC Hgb Hct MCV MCH MCHC RDW Std Deviation Plt Count Neut % (Auto) Lymph % (Auto) [place] % (Auto) Eos % (Auto) Baso % (Auto) Neut # (Auto) Lymph # (Auto) [place] # (Auto) Eos # (Auto) Baso # (Auto) Immature Gran # (Auto) Absolute Nucleated RBC Immature Gran % Nucleated RBC % Smear Path Review PT INR APTT Puncture Site Left Radial ABG pH 7.31 L ABG pCO2 40 ABG pO2 78 L ABG HCO3 20 ABG O2 Saturation 96 ABG Base Excess -6 L FiO2 21 Sodium Potassium Chloride Carbon Dioxide Anion Gap BUN Creatinine Estim Creat Clear Calc eGFR BUN/Creatinine Ratio Glucose Estimated Ave Glu mg/dL Hemoglobin A1c Calculated Osmolality Calcium Corrected Calcium Phosphorus Magnesium Iron TIBC Iron Saturation Unsat Iron Binding Ferritin Total Bilirubin AST ALT Alkaline Phosphatase Troponin I B-Natriuretic Peptide Total Protein Albumin Globulin Albumin/Globulin Ratio Lipase TSH PTH Intact Ur Collection Type Urine Color Urine Clarity Urine pH Ur Specific [place] Urine Protein Urine Glucose (UA) Urine Ketones Urine Blood Urine Nitrite Urine Bilirubin Urine Urobilinogen (Auto) Ur Leukocyte Esterase Urine RBC Urine WBC Ur Squamous Epith Cells Urine Bacteria Urine Opiates Screen Urine Fentanyl Screen Ur Barbiturates Screen U Amphetamin/Meth Scrn U Benzodiazepines Scrn U Cocaine Metab Screen U Marijuana (THC) Screen Hepatitis A IgM Ab Hep Bs Antigen Hep B Core IgM Ab Hepatitis C Antibody Blood Type Antibody Screen Crossmatch Blood Bank Wristband ID ABG Interpretation ABG results: 04/09/25 08:41 ABG pH 7.31 L ABG pCO2 40 ABG pO2 78 L ABG HCO3 20 ABG O2 Saturation 96 ABG Base Excess -6 L Quality Measures Quality Measures VTE prophylaxis Assessment & Plan Assessment Current Active Medications: Generic Name Dose Route Start Last Admin Trade Name Freq PRN Reason Stop Dose Admin Acetaminophen 650 mg 04/08/25 21:29 Acetaminophen 325 Mg Tablet PO 05/08/25 21:28 Q6H PRN Fever >101.5 Acetaminophen 650 mg 04/08/25 21:34 Acetaminophen 325 Mg Tablet PO 05/08/25 21:33 Q6H PRN PAIN SCALE 1-3 (mild Calcium Carbonate 600 mg 04/09/25 09:00 04/09/25 08:21 Calcium Carbonate 600 Mg Tablet PO 05/09/25 08:59 Not Given QDAY TEMO Dextrose 25 ml 04/08/25 19:10 Dextrose 50%-Water Inj 50 Ml Syringe IV 05/08/25 19:09 Q15MIN PRN BG 50-70 responsive npo pt Dextrose 50 ml 04/08/25 19:10 Dextrose 50%-Water Inj 50 Ml Syringe IV 05/08/25 19:09 Q15MIN PRN BG <50 OR BG <70 & pt unresponsive Furosemide 40 mg 04/09/25 09:00 04/09/25 07:49 Furosemide Inj 10 Mg/Ml 4ml Vial IVP 05/09/25 08:59 40 mg BID TEMO Administration Glucagon 1 mg 04/08/25 19:10 Glucagon Inj 1 Mg Vial IM Q15MIN PRN BG <70, and no IV access Heparin Sodium (Porcine) 5,000 unit 04/09/25 09:00 04/09/25 08:21 Heparin Sod Inj 5000 Unit/Ml Vial SC 04/23/25 08:59 Not Given Q12HR TEMO Ondansetron HCl 4 mg 04/08/25 21:34 04/08/25 22:27 Ondansetron Inj 2 Mg/Ml Inj 2 Ml IVP 05/08/25 21:33 4 mg Q6H PRN Administration NAUSEA OR VOMITING Protocol Sennosides 1 tab 04/08/25 21:34 Senna Tablet PO 05/08/25 21:33 QDAY PRN constipation Protocol Plan Mrs. Crowley is a 54 year old female with a history of HTN, T2DM, and CKD who presented to [facility] ED on 04/08 with worsening shortness of breath and anasarca. The patient was admitted for management of acute renal failure and fluid overload. #Acute renal failure #CKD progressing to ESRD #New onset dialysis #DEBBY on underlying CKD #? New onset CHF Patient presented to the ED with creatinine of 8.0, BUN 71, and GFR of 6 and significant bilateral lower extremity edema. 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 According to the PCP, the patient had issues with diabetes, which is thought to be the cause of her chronic kidney disease. Patient has never had an echocardiogram and has no known history of heart failure or cardiac disease. BNP in ED was over 3,000. Initially attempted to diurese patient, but had to transfuse 2 units of packed RBCs, which resulted in the patient becoming further fluid overloaded, worsening her shortness of breath. Given this patient's previous history of CKD without history of CHF, this is most likely a result of acute renal failure, leading to fluid overload, that required dialysis as the patient did not respond sufficiently to diuresis. ? Nephrology consulted, recommends hemodialysis ? ICU team to place temporary dialysis catheter, pending urgent hemodialysis ? Strict I's and O's, daily weights ? Avoid nephrotoxic medications ? Renally dose medications ? Continue renal diet ? Continue to monitor renal panel ? Continue furosemide 40 mg IV push twice daily ? Gave patient Bumex 2 mg IV push one-time dose on 04/09 prior to dialysis ? Pending echocardiogram for evaluation of possible CHF #High anion gap metabolic acidosis #Uremia On repeat renal panel 04/09, the patient had bicarb of 14.6 with anion gap of 19. Patient also had an ABG which showed pH of 7.31. This is most likely due to the patient's acute renal failure, resulting in retention of hydrogen and uremia of 62. #Hyperkalemia Patient presented with potassium of 5.5, which has not improved over time after hyperkalemia protocol. Patient did receive 2 units of packed RBCs and diuresis. This is likely due to the patient's acute renal failure resulting in accumulation of potassium. ? Nephrology consulted, recommends hemodialysis ? Will continue to monitor with daily labs ? Will consider further medication management on top of dialysis if dialysis is not sufficient in decreasing potassium #Normocytic anemia Patient came in with a hemoglobin of 5.7 and hematocrit of 18.0. The patient received 2 units of packed RBCs in the ED, which increased her H&H to 9.2/27.9. This is likely secondary to the patient's acute renal failure and the patient's CKD over time. ? Will continue to monitor, transfuse if hemoglobin less than 7 per protocol DVT Prophylaxis: Heparin GI Prophylaxis: N/A Bowel: N/A Diet: Renal Rodriguez: Yes Lines: Peripheral IV Antibiotics: N/A Code Status: FULL Reason for Hospitalization: Acute renal failure and fluid overload Other Barriers to Discharge: Dialysis Patient plan of care was discussed with the senior resident Dr. Peter and attending physician Dr. Hancock. Chente Pickens, PGY1
[2025-04-09 10:52] LABS: Troponin I 0.686 ng/mL (0.0-0.045)
[2025-04-09 12:05] LABS: Albumin, Serum 3.7 gm/dL (3.5-5.0); Anion Gap 19 (7-16); BUN/Creatinine Ratio 8 Ratio (12-20); Blood Urea Nitrogen 62 mg/dL (9-23); Calcium 7.1 mg/dL (8.3-10.6); Calcium (Corrected) 7.3 mg/dL (8.5-10.1); Chloride 106 mMol/L (98-107); Creatinine (Component) 7.8 mg/dL (0.6-1.3); Estimated Creatinine Clearance 6.6 mL/min (>60); Glucose 184 mg/dL (74-106); Osmolality,Calculated 302 (275-295); Phosphorous 6.6 mg/dL (2.4-5.1); Potassium 5.5 mMol/L (3.4-5.1); Sodium 140 mMol/L (136-145); eGFR 6 See Note
[2025-04-09 12:10] LABS: Carbon Dioxide 14.6 mMol/L (20.0-31.0)
--- NOTE | 2025-04-09 12:20 | PC.NURSE ---
Dr. Courtney made aware of patients blood pressure of 170/101. No new orders received.
--- NOTE | 2025-04-09 14:01 | PD.INTPROC ---
PROCEDURES: Procedure Date / Time 04/09/25 1325 Procedural Time Out Time out performed: Time out performed at 13:00 with MD Isaac Carson at bedside. Patient is Serena castro, 1970 undergoing placement of right IJ temporary hemodialysis catheter. Central Line Placement Right IJ: Indication(s): other (hemodialysis) Informed consent obtained: from patient Time out done, and the following verified: correct patient, side and site, procedure and patient position Patient placed on monitor/pulse ox: Yes Hand Hygiene: soap & water and alcohol-based hand rub Max Sterile Barrier Techniques used: cap, mask, sterile gown, sterile gloves and sterile full body drape Central line prep: Chlorhexidine scrub and sterile drapes applied Local anesthesia used: lidocaine 1% Amount of anesthesia used (mL): 5 Ultrasound used for placement: Yes Sterile Technique if Ultrasound used, including sterile gel: yes Central line lumen inserted: triple Post procedure: sutured in place, good blood return, all ports aspirated, flushed, capped and sterile dressing applied Post procedure x-ray: tip of catheter in good position and no pneumothorax seen Patient tolerated procedure: well and no complications EBL(ml): 6 Procedure comment: INDICATION: Hemodialysis PROCEDURE ASSURANCE MANAGER: Lashanda Denise ATTENDING PHYSICIAN: Dr. Gray In Attendance (Y/N) CONSENT: [x] During the informed consent discussion regarding the procedure, or treatment, primary team explained the following to the patient/designee: a. Nature of the procedure or treatment and who will perform the procedure or treatment. b. Necessity for procedure and the possible benefits. c. Risks and complications (most common and serious). d. Alternative treatments and the risks, benefits and side effects of each (including no treatment). e. Likelihood of the patient achieving his/her goals without this procedure and surgery treatment. f. Problems that might occur during the recuperation. g. Conflicts of interest, if any [_] The procedure was emergent, the patient was unable to provide consent, and a designee was not immediately available. PROCEDURE SUMMARY: A time out was performed. I wore a surgical cap, mask with protective eyewear, full gown and sterile gloves throughout the procedure. The patient was placed in Trendelenburg position. RIGHT chest region was prepped using chlorhexidine scrub and draped in sterile fashion using a full drape and sterile probe cover and sterile gel employed. The medial and lateral heads of the sternocleidomastoid muscle were identified as was the carotid pulse. The Internal Jugular vein was identified using the ultrasound. Anesthesia was achieved over the vein using 1% lidocaine. Using real-time out of plane guidance, the introducer needle was inserted into the Internal Jugular vein under direct ultrasound visualization. Venous blood was withdrawn. The syringe was removed and a guidewire was advanced into the introducer needle. The guidewire was visualized in the Internal Jugular Vein by ultrasound. A small incision was made at the skin surface with a scalpel and the introducer needle was exchanged for a dilator over the guidewire. After appropriate dilation was obtained, the dilator was exchanged over the wire for a triple lumen Vas-Cath central venous catheter. The wire was removed and the catheter was sutured in place at 1 cm. A sterile sorbaview shield was placed over the catheter at the insertion site. The patient tolerated the procedure without any hemodynamic compromise. At time of procedure completion, all ports aspirated and flushed properly. Post-procedure chest x-ray is pending at this time. Estimated blood loss is 6 ml. Procedure done under supervision of the attending nurses medical assistants phlebotomists, Dr. Gray. Lashanda Denise, PGY-3 ATTEnding note I was present for the procedure and available for all fink aspects
--- NOTE | 2025-04-09 14:06 | XR_ITS ---
Examination: AP chest single view TECHNIQUE: AP portable semiupright chest single view Date and time: April 09, 2025 1427 hours Comparison April 09, 2025 at 6:56 AM INDICATIONS: Post temporary dialysis catheter insertion FINDINGS: Right internal jugular temporary dialysis catheter tip in satisfactory position Moderate heart failure pattern with significant enlargement cardiac contour probably vascular congestion. Perihilar edema and bilateral pleural fluid IMPRESSION: Right internal jugular temporary dialysis catheter satisfactory position, no pneumothorax
[2025-04-09] MEDS: HEPARIN SOD INJ 1000 UNIT/ML VIAL 10 ML 2600 UNIT INDWELLCAT (14:49)
--- NOTE | 2025-04-09 15:49 | PD.RESCONSUL ---
HPI Data of Consult Requesting Physician: Sharon Watts MD Admitting Provider: Sharon Watts MD Attending Provider: Nicki Gray MD Primary Care Provider: BERNIE Hunt Consult Narrative Reason for consult: Central venous tri-flow Vas-Cath temporary dialysis catheter placement History of present illness: Patient is a 54-year-old female with past medical history of hypertension, type 2 diabetes, and CKD secondary to diabetic nephropathy who presents on ED 04/08/2025 with worsening shortness of breath, bilateral lower extremity swelling, and abdominal discomfort for approximately 3 months, worse in the last month. Appears to have reported dizziness, easy fatigability, an episode of vomiting, chronic dry cough for the past 2?3 weeks, and using multiple pillows to sleep. She denied fevers, chills, weight gain/loss, chest pain, palpitations, syncope, neuro changes, or recent infections. In the ED, vitals notable for hypertension (BP up to 198/105) and tachycardia (HR 100?118). O2 saturation 94% on room air improved with 3L NC. Labs showed Hgb 5.7, K 6.2, creatinine 8.0, BUN 71, Ca 7.4, BNP 3280, and troponin 0.055. CXR shows chronic CHF pattern with marked cardiomegaly (possible pericardial effusion). Gallbladder US negative for acute pathology, small right pleural effusion noted. EKG: sinus rhythm with short IA, possible old anterior [place], moderate T wave abnormality. ED management included transfusion of 2 units PRBC, hyperkalemia protocol (kayexalate, sodium bicarb), IV calcium gluconate 1g, start oral calcium carbonate 600mg, IV Lasix 40mg, amlodipine 10mg PO, and PRN IV labetalol. Renal ultrasound completed which showed small kidneys with bilateral renal cortical thinning. Patient had a rapid response this morning at 7:52 am for increased work of breathing and required increase of supplemental O2 to 10L oxymask. BiPAP was initiated and ICU was consulted for placement of a Vas-cath to initiate dialysis. cc:: cc: Sharon Watts MD Past Medical History Past Medical History Comments PMH COMMENT: Past Medical History: Hypertension, CKD secondary to diabetic nephropathy, type 2 diabetes Family History: Non-contributory Surgical History: No tobacco, alcohol, or illicit drug use. Lives with family. Latvian-speaking only. Social History: Denies history of smoking, denies current alcohol use, denies recreational drug use. Current Medications: Metformin 1000 mg BID, Hydrochlorothiazide 25mg daily (Source: Patient) Allergies: No known drug allergies Exam Vital Signs Temp Pulse Resp BP Pulse Ox O2 Del Method O2 Flow Rate 96.8 F 91 20 195/108 H 97 Oxy Mask 10 04/09/25 15:42 04/09/25 15:48 04/09/25 15:42 04/09/25 15:48 04/09/25 15:42 04/09/25 12:00 04/09/25 08:00 FiO2 30 04/09/25 15:42 Narrative Exam Physical Exam General: Sleepy, however responsive to questions. HEENT: Normocephalic, atraumatic, mucous membranes moist. On BiPAP. Heart: Regular rate and rhythm, normal S1 and S2, no murmurs. Lungs: Clear to auscultation, crackles in the right lower lung field. Abdomen: Soft, nondistended, nontender, positive bowel sounds. ?No guarding or rebound tenderness. Neurologic: Alert and oriented x3, no gross neurological deficit, and patient able to move all 4 extremities. Follows commands. Extremities: Significant 4+ bilateral peripheral lower extremity edema. Skin: No rash or ecchymoses. Results Labs 04/10/25 05:39 04/10/25 05:39 Labs: Short CBC 04/09/25 Range/Units 07:50 WBC 5.5 (3.6-11.0) Thou/mm3 Hgb 9.2 L D (12.0-16.0) g/dL Hct 27.9 L (36.0-46.0) % Plt Count 185 (140-440) Thou/mm3 BMP 04/08/25 04/09/25 04/09/25 22:20 04:10 07:50 Sodium 140 Cancelled 140 Potassium 5.5 H D Cancelled 5.5 H Chloride 106 Cancelled 106 Carbon Dioxide 19.5 L Cancelled 18.9 L BUN 53 H Cancelled 61 H Creatinine 7.6 H* Cancelled 7.7 H* Glucose 164 H Cancelled 168 H Calcium 7.8 L Cancelled 7.1 L 04/09/25 10:15 Sodium 140 Potassium 5.5 H Chloride 106 Carbon Dioxide 14.6 L* BUN 62 H Creatinine 7.8 H* Glucose 184 H Calcium 7.1 L Cardiac Enzymes 04/08/25 04/09/25 04/09/25 Range/Units 22:20 04:10 10:15 Troponin I 0.118 H* 0.869 H* D 0.686 H* (0.0-0.045) ng/mL Liver Function 04/08/25 04/09/25 04/09/25 Range/Units 22:20 04:10 07:50 Total Bilirubin 0.2 L Cancelled 0.3 (0.3-1.2) mg/dL AST 20 Cancelled 23 (0-34) U/L ALT 14 Cancelled 13 (10-49) U/L Alkaline Phosphatase 106 Cancelled 111 (46-116) U/L Albumin 3.7 Cancelled 3.7 (3.5-5.0) gm/dL 04/09/25 Range/Units 10:15 Total Bilirubin (0.3-1.2) mg/dL AST (0-34) U/L ALT (10-49) U/L Alkaline Phosphatase (46-116) U/L Albumin 3.7 (3.5-5.0) gm/dL Urine 04/08/25 Range/Units 16:37 Urine Color Lt-Yellow (Lt Yel-Yel) Urine Clarity Clear (Clear/Hazy) Urine pH 7.0 (5.0-7.0) Ur Specific [place] 1.014 (1.001-1.035) Urine Protein 3+ A (Neg - Trace) Urine Glucose (UA) 1+ A (Negative) ABG Interpretation ABG results: 04/09/25 08:41 ABG pH 7.31 L ABG pCO2 40 ABG pO2 78 L ABG HCO3 20 ABG O2 Saturation 96 ABG Base Excess -6 L Quality Measures Quality Measures VTE prophylaxis Medications Home Medications and Allergies Home Medications ?Medication ?Instructions ?Recorded ?Confirmed ?Type hydrochlorothiazide 25 mg tablet 25 mg PO QAM 04/08/25 04/08/25 History metformin 1,000 mg tablet 1,000 mg PO BID 04/08/25 04/08/25 History Allergies Allergy/AdvReac Type Severity Reaction Status Date / Time No Known Allergies Allergy Verified 04/08/25 12:44 Visit Medications Acetaminophen (Acetaminophen 325 Mg Tablet) 650 mg PO Q6H PRN PRN Reason: Fever >101.5 Stop: 05/08/25 21:28 Acetaminophen (Acetaminophen 325 Mg Tablet) 650 mg PO Q6H PRN PRN Reason: PAIN SCALE 1-3 (mild Stop: 05/08/25 21:33 Calcium Carbonate (Calcium Carbonate 600 Mg Tablet) 600 mg PO QDAY TEMO Stop: 05/09/25 08:59 Last Admin: 04/09/25 08:21 Dose: Not Given Dextrose (Dextrose 50%-Water Inj 50 Ml Syringe) 25 ml IV Q15MIN PRN PRN Reason: BG 50-70 responsive npo pt Stop: 05/08/25 19:09 Dextrose (Dextrose 50%-Water Inj 50 Ml Syringe) 50 ml IV Q15MIN PRN PRN Reason: BG <50 OR BG <70 & pt unresponsive Stop: 05/08/25 19:09 Furosemide (Furosemide Inj 10 Mg/Ml 4ml Vial) 40 mg IVP BID TEMO Stop: 05/09/25 08:59 Last Admin: 04/09/25 07:49 Dose: 40 mg Glucagon (Glucagon Inj 1 Mg Vial) 1 mg IM Q15MIN PRN PRN Reason: BG <70, and no IV access Heparin Sodium (Porcine) (Heparin Sod Inj 5000 Unit/Ml Vial) 5,000 unit SC Q12HR TEMO Stop: 04/23/25 08:59 Last Admin: 04/09/25 08:21 Dose: Not Given Heparin Sodium (Porcine) (Heparin Sod Inj 1000 Unit/Ml Vial 10 Ml) 2,600 unit INDWELLCAT PRN PRN PRN Reason: DIALYSIS Stop: 04/23/25 14:03 Last Admin: 04/09/25 14:49 Dose: 2,600 unit Ondansetron HCl (Ondansetron Inj 2 Mg/Ml Inj 2 Ml) 4 mg IVP Q6H PRN; Protocol PRN Reason: NAUSEA OR VOMITING Stop: 05/08/25 21:33 Last Admin: 04/08/25 22:27 Dose: 4 mg Sennosides (Senna Tablet) 1 tab PO QDAY PRN; Protocol PRN Reason: constipation Stop: 05/08/25 21:33 Discontinued Medications Albuterol (Albuterol Rt 2.5 Mg/3 Ml Nebu) 5 mg INH X1 ONE Stop: 04/08/25 19:11 Last Admin: 04/08/25 19:49 Dose: 5 mg Bumetanide (Bumetanide Inj 0.25 Mg/Ml Vial 4 Ml) 2 mg IVP X1 ONE Stop: 04/09/25 08:06 Last Admin: 04/09/25 08:24 Dose: 2 mg Dextrose (Dextrose 50%-Water Inj 50 Ml Syringe) 50 ml IVP X1 ONE Stop: 04/08/25 19:47 Last Admin: 04/08/25 19:50 Dose: 50 ml Furosemide (Furosemide Inj 10 Mg/Ml 4ml Vial) 40 mg IVP QDAY TEMO Stop: 05/09/25 08:59 Furosemide (Furosemide Inj 10 Mg/Ml 4ml Vial) 40 mg IVP X1 ONE Stop: 04/08/25 21:14 Last Admin: 04/08/25 21:51 Dose: 40 mg Hydralazine HCl (Hydralazine Inj 20 Mg/Ml Vial) 20 mg IVP X1 ONE Stop: 04/08/25 19:48 Last Admin: 04/08/25 20:00 Dose: 20 mg Calcium Gluconate/Sodium Chloride (Calcium Gluc/Ns 1000mg Ivpb) 1,000 mg in 50 mls @ 50 mls/hr IV X1 ONE Stop: 04/08/25 20:11 Last Infusion: 04/08/25 21:37 Dose: Infused Insulin Human Regular (Insulin Hum Regular 1 Unit/0.01 Ml (Per Unit)) 5 unit IV X1 ONE Stop: 04/08/25 19:11 Last Admin: 04/08/25 19:51 Dose: 5 unit Sodium Bicarbonate (Sodium Bicarb Inj 8.4% 1 Meq/Ml 50 Ml Vial) 50 meq IV X1 ONE Stop: 04/08/25 19:52 Last Admin: 04/08/25 20:00 Dose: 50 meq Sodium Polystyrene Sulfonate (Sod Polystyrene Sulfon Susp 15 Gm/60 Ml Btl) 30 gm PO X1 ONE Stop: 04/08/25 19:11 Last Admin: 04/08/25 19:51 Dose: 30 gm Assessment & Plan Plan 54-year-old F with HTN, DM2, and CKD5 (small echogenic kidneys with cortical thinning), presenting with progressive dyspnea, anasarca, severe anemia, and hyperkalemia, found to have cardiomegaly with possible pericardial effusion, admitted for volume management and nephrology evaluation. ICU was consulted for recommendations and Vas-Cath placement. NEURO Patient is awake, alert, and oriented x3, following commands, conversational. #No active problems CARDIO #Suspected decompensated heart failure BNP was >3280 on admission, CXR showed cardiomegaly, bilateral pleural fluid -Agree with echocardiogram -Strict intake and output measurement -Daily weight -Fluid restrictions -Continue with Lasix 40 mg IV BID #NSTEMI, likely type 2 Likely secondary to above -Troponins already downtrended #History of hypertension Poorly controlled this admission -Agree with initiating amlodipine 10 mg qday PULM #Acute hypoxic respiratory failure, secondary to #Volume overload Patient came in with shortness of breath, initially requiring 2-3L on nasal cannula but had rapid response 8/ morning requiring higher O2, was placed on BiPAP. -Continue with BiPAP therapy -Right IJ temporary dialysis catheter (Vas-Cath) placed today -CXR ordered, reviewed and dialysis catheter ok to use -Proceed with dialysis -Follow up renal panels GI #No active problems NEPHRO #Hyperkalemia Potassium 6.2 initially, 5.5 on follow up -Initiate dialysis as above -Follow up renal panel #CKD stage 5 -> ESRD Patient presented with creatinine 8.0 and GFR 6 Renal US showed small kidneys with bilateral renal cortical thinning. -Initiate dialysis as above #Metabolic acidosis Secondary to kidneys unable to effectively remove acid from the body or produce enough bicarbonate. -Dialysis as above URO #No active problems HEME #Acute on chronic anemia #Iron deficiency Currently no clinical history of bleeding. Iron level low at 38. -s/p 2 PRBC -Monitor CBC ENDO #History of type 2 diabetes Glucose on chem panels 160-180 -A1c was cancelled, indicating likely poor control -Follow up with [facility] send out A1c after discharge -Recommend sliding scale insulin -Recommend q6h blood glucose checks ID #No active problems MSK #No active problems SKIN #No active problems Patient was discussed with the attending superintendent gas distribution, Dr. Gray. Thank you for allowing us to participate in the care of this patient. Lashanda Denise, PGY-3 Attending Provider Attestation/Addendum pt seen and examined, agree with above. in brief this is a 54yo F admitted to [facility] with DEBBY, pulmonary edema and acute resp failure. She is on bipap. A RR was called this AM for SOB and increased WOB. pt was deemed to be appropriate for HD for volume removal. Assistance with HD cath was requested. On exam the pt is jamaican speaking. She is AAOx4, obese, bipap in place, slight increase in WOB, crackles on b/l lung marquez, HRRR, abd s/nt/bs+. She is noted to have DEBBY with acidosis and volume overload. HD line will be placed for tx. rest deferred to primary team. no indication for ICU admission at this time. case d/w ICU team and hospitalist service labs, imaging, records reviewed ~55min required for eval, exam, review, intervention, discussion and formulation of POC.
[2025-04-09 16:43] LABS: Albumin, Serum 3.5 gm/dL (3.5-5.0); Anion Gap 11 (7-16); BUN/Creatinine Ratio 9 Ratio (12-20); Blood Urea Nitrogen 61 mg/dL (9-23); Calcium 8.2 mg/dL (8.3-10.6); Calcium (Corrected) 8.6 mg/dL (8.5-10.1); Carbon Dioxide 24.1 mMol/L (20.0-31.0); Chloride 106 mMol/L (98-107); Creatinine (Component) 6.6 mg/dL (0.6-1.3); Estimated Creatinine Clearance 7.8 mL/min (>60); Glucose 116 mg/dL (74-106); Osmolality,Calculated 299 (275-295); Phosphorous 5.6 mg/dL (2.4-5.1); Potassium 4.6 mMol/L (3.4-5.1); Sodium 141 mMol/L (136-145); eGFR 7 See Note
[2025-04-09] MEDS: HEPARIN SOD INJ 5000 UNIT/ML VIAL SC (20:23)
[2025-04-10] VITALS (25 sets, daily range): BP systolic 128–170; BP diastolic 73–97; PULSE 71–84; RESP 17–20; TEMP 36.1–36.9; O2SAT 97–99; BMI 31.1
--- NOTE | 2025-04-10 00:02 | ESCONSULT_ITS ---
RE: GEOFF MCKEON : 1970 DATE OF CONSULTATION: 04/09/2025 REASON FOR REFERRAL: Worsening kidney function. REFERRING PHYSICIAN: Dr. Al. This patient is a 54-year-old , Khmer-speaking only woman with past medical history significant for hypertension, diabetes mellitus which started as gestational diabetes 17 years ago with retinopathy, neuropathy and most likely nephropathy, who presented to the emergency room last night with increasing shortness of breath and leg swelling. The patient said that she has been swollen for the past 3 months and gradually getting more short of breath with 2- 3 pillow orthopnea. Chest x-ray revealed mild chronic heart failure pattern with enlargement of cardiac contour with prominent vascular congestion. Dictation Ends Here. DT: 23:20:33 TT: 23:58:00 Ref: [id number] - TID: [id number]
--- NOTE | 2025-04-10 00:20 | ESCONSULT_ITS ---
RE: GEOFF MCKEON : 1970 DATE OF CONSULTATION: 04/09/2025 REASON FOR REFERRAL: Worsening kidney function, increasing shortness of breath due to fluid overload, and worsening leg edema. HISTORY OF PRESENT ILLNESS: This patient is a 54-year-old Urdu- speaking only woman with past medical history significant for hypertension and diabetes, which started as gestational diabetes 17 years ago, who presented to the emergency room last night with increasing shortness of breath and leg swelling. The patient also had severe orthopnea in the past few days. The patient was also very swollen upon presentation and stated that she has been swollen for the past 3 months as well. She was eventually admitted to address worsening kidney function, anemia, and leg swelling. She received 2 units of packed RBCs while in the emergency room to address her severe anemia. This morning, she became more dyspneic and required emergency dialysis. She tolerated dialysis today. She said that a few years ago she was seeing a primary care physician, who told her that she has kidney disease. She is not sure if she saw a on site wastewater systems technician, however, told me that she was seeing her primary care physician regularly before, but stopped seeing her recently due to lack of insurance. When she presented, she was also noted having an elevated potassium level. She was given Kayexalate and potassium went down to 5.5. Creatinine was 8 upon presentation as well. The patient also said that her vision has not been good for quite some time and also she developed more numbness on her legs. After the dialysis today, she said that she felt a little bit better, but continues to be swollen and still has 2 pillow orthopnea. Her chest x-ray revealed that she has moderate large pericardial contour with prominent vascular congestion with perihilar basilar edema. Renal ultrasound also confirmed CKD as she has small kidneys with bilateral renal cortical thinning. She currently denies any nausea, vomiting or loss of appetite. PAST MEDICAL HISTORY: Type 2 diabetes, hypertension, and CKD. CURRENT MEDICATIONS: 1. Acetaminophen. 2. Amlodipine 10 mg daily. 3. Bumetanide 2 mg IV b.i.d. 4. Calcium carbonate 500 mg daily. 5. Carvedilol 12.5 mg b.i.d. 6. Zofran 4 mg p.r.n. PHYSICAL EXAMINATION: GENERAL: She is awake, alert, and oriented. VITAL SIGNS: Blood pressure of 175/92. HEENT: Anicteric sclerae. Normocephalic. NECK: Supple. JVD. CHEST AND LUNGS: Symmetrical expansion. Decreased breath sounds bilaterally. CARDIAC: Without murmur. ABDOMEN: Distended. EXTREMITIES: 2-3+Bilaterall pitting edema. LABORATORY DATA: Hemoglobin 9.2, WBC 5600, and platelet count 185,000. Sodium 141, potassium 4.6, chloride 106, CO2 is 24.1, BUN 61, creatinine 6.6, glucose 116, calcium 8.6, and phosphorus 5.6. ASSESSMENT: 1. Stage V chronic kidney disease most likely secondary to diabetic nephropathy and hypertensive nephrosclerosis with volume overload. 2. Anemia of chronic disease. 3. Hypertension. 4. Type 2 diabetes. 5. Hyperkalemia. 6. Congestive heart failure versus fluid overload. 7. Secondary hyperparathyroidism. PLAN: The patient was started on dialysis earlier today mostly because of volume overload. I agree with obtaining a 2D echocardiogram to rule out congestive heart failure as well. I believe that the patient's kidney failure has progressed to ESRD, which would require renal replacement therapy. This was explained to her and to her family. The patient would need a permanent dialysis catheter once she is able to lay flat on the table. I will continue to dialyze her tomorrow and remove as much fluid as she can tolerate. We will continue her antihypertensives. DT: 23:30:56 TT: 00:18:00 Ref: [id number] - TID: [id number] MTDD
[2025-04-10 07:04] LABS: Basophils # (Auto) 0.0 Thou/mm3 (0.0-0.2); Basophils % (Auto) 0 % (0-2.5); Eosinophils # (Auto) 0.0 Thou/mm3 (0.0-0.5); Eosinophils % (Auto) 1 % (0-10); Hematocrit 25.2 % (36.0-46.0); Immature Granulocytes Auto 0.01 Thou/mm3 (0.00-0.00); Lymphocytes # (Auto) 0.5 Thou/mm3 (1.0-4.8); Lymphocytes % (Auto) 9 % (10-50); Mean Corpuscular HGB Conc 32.9 g/dl (31.0-37.0); Mean Corpuscular Hemoglobin 29.0 pg (25.0-35.0); Mean Corpuscular Volume 88 fL (80-100); Monocytes # (Auto) 0.3 Thou/mm3 (0.0-0.8); Monocytes % (Auto) 5 % (0-12); Neutrophils # (Auto) 4.4 Thou/mm3 (1.8-7.7); Neutrophils % (Auto) 84 % (37-80); Nucleated Red Blood Cell # 0.00 Thou/mm3 (0.00-0.00); Nucleated Red Blood Cell % 0 /100 WBC (0); Platelet Count 170 Thou/mm3 (140-440); RDW Standard Deviation 43.8 fL (36.4-46.3); Red Blood Count 2.86 Miln/mm3 (4.00-5.20); White Blood Count 5.2 Thou/mm3 (3.6-11.0)
[2025-04-10 07:06] LABS: Hemoglobin 8.3 g/dL (12.0-16.0)
[2025-04-10 07:33] LABS: Alanine Aminotransferase 10 U/L (10-49); Albumin, Serum 3.2 gm/dL (3.5-5.0); Albumin/Globulin Ratio 1.4 (1.2-2.2); Alkaline Phosphatase 104 U/L (46-116); Anion Gap 13 (7-16); Aspartate Amino Transferase 13 U/L (0-34); BUN/Creatinine Ratio 8 Ratio (12-20); Bilirubin,Total 0.4 mg/dL (0.3-1.2); Blood Urea Nitrogen 55 mg/dL (9-23); Calcium 7.4 mg/dL (8.3-10.6); Calcium (Corrected) 8.0 mg/dL (8.5-10.1); Carbon Dioxide 24.3 mMol/L (20.0-31.0); Chloride 104 mMol/L (98-107); Creatinine (Component) 6.6 mg/dL (0.6-1.3); Estimated Creatinine Clearance 7.9 mL/min (>60); Globulin 2.3 gm/dL (2.3-3.5); Glucose 147 mg/dL (74-106); Magnesium 1.8 mg/dL (1.6-2.6); Osmolality,Calculated 299 (275-295); Phosphorous 6.1 mg/dL (2.4-5.1); Potassium 4.5 mMol/L (3.4-5.1); Sodium 141 mMol/L (136-145); Total Protein 5.5 gm/dL (5.7-8.2); eGFR 7 See Note
--- NOTE | 2025-04-10 09:09 | PC.SS ---
Follow up note: Pt is self pay. SS has contacted Carmelina, financial counselor but was only able to leave voicemail. Pt is new dialysis with Dr. Mcgovern. Dialysis chair time is pending.
[2025-04-10] MEDS: HEPARIN SOD INJ 1000 UNIT/ML VIAL 10 ML 2600 UNIT INDWELLCAT (10:39)
[2025-04-10] MEDS: CALCIUM CARBONATE 600 MG TABLET PO (11:25)
[2025-04-10] MEDS: BUMETANIDE INJ 0.25 MG/ML VIAL 4 ML 2 MG IVP ×2 (11:26→20:10)
[2025-04-10] MEDS: HEPARIN SOD INJ 5000 UNIT/ML VIAL SC ×2 (11:27→20:11)
[2025-04-10 11:29] LABS: Iron 51 mcg/dL (50-170); Percent Iron Saturation 20 % (20-55); Total Iron Binding Capacity 247 mcg/dL (250-425); Unsaturated Iron Binding 196 (225-295)
[2025-04-10] MEDS: TUBERCULIN PPD INJ 5 UNIT/0.1 ML DOSE ID (11:35)
[2025-04-10] MEDS: EPOETIN ALFA-EPBX INJ 10,000 UNIT/ML VIAL (NON-ESRD) 10000 UNIT SC (12:01)
[2025-04-10 12:18] LABS: Hepatitis A Antibody IgM Non Reactive (Non React); Hepatitis B Core Antibody IgM Non Reactive (Non React); Hepatitis B Surface Antigen Non Reactive (Non React); Hepatitis C Antibody Non Reactive (Non React)
[2025-04-10 12:43] LABS: Folate > 24.00 ng/mL (>5.38)
--- NOTE | 2025-04-10 13:28 | ESPR_ITS ---
<Statement entered by Aneesh Hancock MD - 04/13/25 09:09> I reviewed above note and agree with findings and plans. I have also personally examined the patient with medicine team and went over assessment and plan with medical team including internet manager and resident physician. <Statement entered by Lorena Peter MD - 04/10/25 15:40> Patient is seen at bedside this morning. Patient is currently saturating on 2L of oxygen via nasal cannula, endorses to significant improvement of her shortness of breath and fluid overload state. Lower extremity edema has decreased to minimal. Patient had undergone dialysis yesterday however approximately 1.5L of fluid was removed due to dialysis catheter clotting. Patient had a repeat dialysis session today and a little over 2.5L of fluid was removed. Will continue to monitor patient's electrolytes and blood pressure is well-controlled with amlodipine and will continue Bumex 2 mg twice daily. Patient will need permanent dialysis catheter and outpatient dialysis chair time. Therefore will order PPD skin test as well as hepatitis panel. Echo is also pending. Patient was seen and examined by me personally. I have directly supervised and reviewed documentation by the team resident and agree with its findings. ------- Plan of care was discussed with the attending, Dr. Santi Peter, PGY-2 Documentation for date of: 04/10/25 Subjective Subjective Interval history: Overnight events: No acute events overnight. Patient was seen and examined at bedside. AM vitals and labs reviewed. Patient was seen during dialysis today breathing comfortably on 2 L nasal cannula. Patient is on day 2 of 3 of urgent hemodialysis. Patient tolerated laying flat for over 10 minutes without any difficulty in breathing and saturated 96% plus. Discussed with Dr Mcgovern, will plan for tunneled dialysis catheter placement tomorrow and complete third day of dialysis. Discussed plan with patient and her family. Possible discharge 04/11 depending on respiratory status and fluid volume status. Review of systems otherwise negative except for what is mentioned above. Exam Vital Signs Temp Pulse Resp BP Pulse Ox O2 Del Method O2 Flow Rate 97.2 F 83 17 170/95 H 99 Nasal Cannula 2 04/10/25 12:04/10/25 12:04/10/25 12:04/10/25 12:04/10/25 12:04/10/25 12:04/10/25 12:00 FiO2 30 04/10/25 07:55 Narrative Exam Physical Exam: General: Alert, no acute distress. Skin: Warm, dry, intact, no obvious rash. Head: Normocephalic, atraumatic. Eye: Normal conjunctiva, PERRL. Cardiovascular: Regular rate and rhythm, no murmur, +S1/S2. Respiratory: Lungs are clear to auscultation, respirations unlabored, no crackles, no wheezing. Gastrointestinal: Soft, nontender, non-distended. No guarding or rebound tenderness. Extremities: Trace pedal edema, no cyanosis, no clubbing. 2+ radial pulse bilaterally, 2+ pedal pulse bilaterally. Neuro: No focal deficits observed. Conversant, moving all extremities. No overt cerebellar signs/incoordination. Psychiatric: Cooperative, appropriate affect. Objective Labs 04/10/25 05:39 04/10/25 05:39 Labs: Laboratory Results - last 24 hr 04/09/25 04/09/25 04/10/25 07:50 15:56 05:39 WBC 5.2 RBC 2.86 L Hgb 8.3 L Hct 25.2 L MCV 88 MCH 29.0 MCHC 32.9 RDW Std Deviation 43.8 Plt Count 170 Neut % (Auto) 84 H Lymph % (Auto) 9 L [place] % (Auto) 5 Eos % (Auto) 1 Baso % (Auto) 0 Neut # (Auto) 4.4 Lymph # (Auto) 0.5 L [place] # (Auto) 0.3 Eos # (Auto) 0.0 Baso # (Auto) 0.0 Immature Gran # (Auto) 0.01 H Absolute Nucleated RBC 0.00 Immature Gran % 0 Nucleated RBC % 0 Sodium 141 141 Potassium 4.6 D 4.5 Chloride 106 104 Carbon Dioxide 24.1 24.3 Anion Gap 11 13 BUN 61 H 55 H Creatinine 6.6 H* D 6.6 H* Estim Creat Clear Calc 7.8 L 7.9 L eGFR 7 L* 7 L* BUN/Creatinine Ratio 9 L 8 L Glucose 116 H D 147 H Calculated Osmolality 299 H 299 H Calcium 8.2 L 7.4 L Corrected Calcium 8.6 8.0 L Phosphorus 5.6 H 6.1 H Magnesium 1.8 Iron 51 TIBC 247 L Iron Saturation 20 Unsat Iron Binding 196 L Total Bilirubin 0.4 AST 13 ALT 10 Alkaline Phosphatase 104 Total Protein 5.5 L Albumin 3.5 3.2 L Globulin 2.3 Albumin/Globulin Ratio 1.4 Folate > 24.00 Hepatitis A IgM Ab Non Reactive Hep Bs Antigen Non Reactive Hep B Core IgM Ab Non Reactive Hepatitis C Antibody Non Reactive ABG Interpretation ABG results: 04/09/25 08:41 ABG pH 7.31 L ABG pCO2 40 ABG pO2 78 L ABG HCO3 20 ABG O2 Saturation 96 ABG Base Excess -6 L Quality Measures Quality Measures VTE prophylaxis Assessment & Plan Assessment Current Active Medications: Generic Name Dose Route Start Last Admin Trade Name Freq PRN Reason Stop Dose Admin Acetaminophen 650 mg 04/08/25 21:29 Acetaminophen 325 Mg Tablet PO 05/08/25 21:28 Q6H PRN Fever >101.5 Acetaminophen 650 mg 04/08/25 21:34 Acetaminophen 325 Mg Tablet PO 05/08/25 21:33 Q6H PRN PAIN SCALE 1-3 (mild Amlodipine Besylate 10 mg 04/10/25 09:00 04/10/25 11:41 Amlodipine Besylate 5 Mg Tablet PO 05/10/25 08:59 10 mg QDAY TEMO Administration Bumetanide 2 mg 04/09/25 21:00 04/10/25 11:26 Bumetanide Inj 0.25 Mg/Ml Vial 4 Ml IVP 05/09/25 20:59 2 mg BID TEMO Administration Calcium Carbonate 600 mg 04/09/25 09:00 04/10/25 11:25 Calcium Carbonate 600 Mg Tablet PO 05/09/25 08:59 600 mg QDAY TEMO Administration Carvedilol 12.5 mg 04/10/25 08:00 04/10/25 11:25 Carvedilol 12.5 Mg Tablet PO 05/10/25 07:59 12.5 mg BIDWM TEMO Administration Dextrose 25 ml 04/08/25 19:10 Dextrose 50%-Water Inj 50 Ml Syringe IV 05/08/25 19:09 Q15MIN PRN BG 50-70 responsive npo pt Dextrose 50 ml 04/08/25 19:10 Dextrose 50%-Water Inj 50 Ml Syringe IV 05/08/25 19:09 Q15MIN PRN BG <50 OR BG <70 & pt unresponsive Glucagon 1 mg 04/08/25 19:10 Glucagon Inj 1 Mg Vial IM Q15MIN PRN BG <70, and no IV access Heparin Sodium (Porcine) 5,000 unit 04/09/25 09:00 04/10/25 11:27 Heparin Sod Inj 5000 Unit/Ml Vial SC 04/23/25 08:59 5,000 unit Q12HR TEMO Administration Heparin Sodium (Porcine) 2,600 unit 04/09/25 14:04 04/10/25 10:39 Heparin Sod Inj 1000 Unit/Ml Vial 10 Ml INDWELLCAT 04/23/25 14:03 2,600 unit PRN PRN Administration DIALYSIS Albumin Human 25 gm in 100 mls @ 100 mls/min 04/09/25 15:50 Albuminar-25 Ivpb IV PRN PRN DIALYSIS Ondansetron HCl 4 mg 04/08/25 21:34 04/08/25 22:27 Ondansetron Inj 2 Mg/Ml Inj 2 Ml IVP 05/08/25 21:33 4 mg Q6H PRN Administration NAUSEA OR VOMITING Protocol Sennosides 1 tab 04/08/25 21:34 Senna Tablet PO 05/08/25 21:33 QDAY PRN constipation Protocol Plan Mrs. Crowley is a 54 year old female with a history of HTN, T2DM, and CKD who presented to [facility] ED on 04/08 with worsening shortness of breath and anasarca. The patient was admitted for management of acute renal failure and fluid overload. #ESRD, likely 2/2 diabetic nephropathy and hypertensive nephrosclerosis #New onset dialysis #DEBBY on underlying CKD (resolving) #? New onset CHF Patient presented to the ED with creatinine of 8.0, BUN 71, and GFR of 6 and significant bilateral lower extremity edema. 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 According to the PCP, the patient had issues with diabetes, which is thought to be the cause of her chronic kidney disease. Patient has never had an echocardiogram and has no known history of heart failure or cardiac disease. BNP in ED was over 3,000. Initially attempted to diurese patient, but had to transfuse 2 units of packed RBCs, which resulted in the patient becoming further fluid overloaded, worsening her shortness of breath. Given this patient's previous history of CKD without history of CHF, this is most likely a result of acute renal failure, leading to fluid overload, that required dialysis as the patient did not respond sufficiently to diuresis. ? Nephrology consulted, recommends hemodialysis (day 2/3) and will plan for tunneled dialysis catheter on 04/11 with hemodialysis to follow afterwards ? Strict I's and O's, daily weights ? Avoid nephrotoxic medications ? Renally dose medications ? Continue renal diet ? Continue to monitor renal panel ? Continue furosemide 40 mg IV push twice daily ? Gave patient Bumex 2 mg IV push one-time dose on 04/09 prior to dialysis ? Pending echocardiogram for evaluation of possible CHF #High anion gap metabolic acidosis (resolved) #Uremia (resolved) On repeat renal panel 04/09, the patient had bicarb of 14.6 with anion gap of 19. Patient also had an ABG which showed pH of 7.31. This is most likely due to the patient's acute renal failure, resulting in retention of hydrogen and uremia of 62. ? Will continue to monitor with renal panel daily ? Will continue to manage with hemodialysis #Hyperkalemia (resolved) Patient presented with potassium of 5.5, which has not improved over time after hyperkalemia protocol. Patient did receive 2 units of packed RBCs and diuresis. This is likely due to the patient's acute renal failure resulting in accumulation of potassium. ? Nephrology consulted, recommends hemodialysis ? Will continue to monitor with daily labs ? Will consider further medication management on top of dialysis if dialysis is not sufficient in decreasing potassium #Normocytic anemia (resolved) Patient came in with a hemoglobin of 5.7 and hematocrit of 18.0. The patient received 2 units of packed RBCs in the ED, which increased her H&H to 9.2/27.9. This is likely secondary to the patient's acute renal failure and the patient's CKD over time. ? Will continue to monitor, transfuse if hemoglobin less than 7 per protocol DVT Prophylaxis: Heparin GI Prophylaxis: N/A Bowel: N/A Diet: Renal Rodriguez: Yes Lines: Peripheral IV Antibiotics: N/A Code Status: FULL Reason for Hospitalization: Acute renal failure and fluid overload Other Barriers to Discharge: Dialysis Patient plan of care was discussed with the senior resident Dr. Peter (PGY-2) and attending physician Dr. Hancock. Chente Pickens, PGY1
[2025-04-10 13:46] LABS: Misc Send Out* See Sep Rpt
--- NOTE | 2025-04-10 23:04 | ESPR_ITS ---
RE: GEOFF MCKEON : 1970 DATE OF SERVICE: 04/10/2025 HISTORY OF PRESENT ILLNESS: This patient is a 54-year-old [place]ian speaking only woman with hypertension and diabetes, which started as gestational diabetes 17 years ago, who presented to emergency room on 04/08/2025 with increasing shortness of breath and leg swelling. The patient has a history of chronic kidney disease, but never followed up with any manager track until she became more swollen and fluid overloaded. She required emergency dialysis on 04/09/2025 and she felt better. Dialysis was provided again today and she felt much better than yesterday. Her creatinine was 8 upon presentation with a potassium of 6.1. Her bilateral kidney ultrasound confirmed her CKD as she has small kidneys with bilateral renal cortical thinning. She dialyzed earlier today and about 2.5 L of fluid was removed. PHYSICAL EXAMINATION: General: She is awake, alert, oriented. Vital Signs: Blood pressure 150/71 and heart rate of 71. HEENT: Anicteric sclerae. Normocephalic. Neck: Supple. No JVD. Chest and Lungs: Symmetric expansion. Clear breath sounds. Cardiac: Without murmur. Abdomen: Soft and nontender. Extremities: No edema. CURRENT MEDICATIONS: 1. Bumetanide 2 mg IV b.i.d. 2. Calcium carbonate 600 mg p.o. daily. 3. Carvedilol 12.5 mg p.o. b.i.d. 4. Amlodipine 10 mg p.o. daily. 5. Ondansetron. 6. Senokot. LABORATORY DATA: Hemoglobin 8.3, WBC 5200, and platelet count 170,000. Sodium 141, potassium 4.5, chloride 104, CO2 is 24.3, BUN 55, creatinine 6.6, glucose 147, calcium 8, and phosphorus 6.1. ASSESSMENT: 1. New end-stage renal disease secondary to diabetic nephropathy and hypertensive nephrosclerosis with volume overload upon presentation. 2. Anemia of chronic kidney disease. 3. Hypertension. 4. Diabetes. 5. Hyperkalemia. 6. Congestive heart failure versus fluid overload. 7. Secondary hyperparathyroidism with mild hypocalcemia. PLAN: The patient will continue dialysis tomorrow, which will be her third dialysis session. We also asked interventional radiologist to put a permanent tunneled dialysis catheter on one of her IJs. Dialysis will be provided after tunneled dialysis catheter is placed. DT: 22:24:20 TT: 23:02:00 Ref: [id number] - TID: [id number]
[2025-04-11] VITALS (31 sets, daily range): BP systolic 117–172; BP diastolic 64–89; PULSE 60–78; RESP 12–22; TEMP 36.1–36.7; O2SAT 94–98; BMI 29.4
--- NOTE | 2025-04-11 05:00 | XR_ITS ---
Ultrasound-guided needle placement right internal jugular vein Permanent tunneled dialysis catheter insertion, percutaneous Fluoroscopy AP chest, portable, single view. Date and time of procedure: April 11, 2025 1206 hours INDICATIONS: Renal failure, need for long-term dialysis Informed consent provided Technique: A timeout was completed verifying correct patient, procedure, site, positioning, and special equipment if applicable. The patient was placed in a dependent position appropriate for dialysis catheter placement based on the vein to be cannulated. The patient'sright neck was prepped and draped in sterile fashion. Maximum Sterile Barrier Technique used including cap, mask, sterile gown, sterile gloves, and sterile full body drape. If ultrasound technique used: sterile gel and sterile probe covers. Hand Hygiene performed using proper scrub, soap and water, or alcohol-based hand rub. 1% lidocaine was used to anesthetize the surrounding skin area The Site [employer] portable ultrasound apparatus was utilized to confirm patency of the right internal jugular vein Utilizing ultrasonographic guidance successful 21-gauge needle puncture into the right internal jugular vein Ultrasound images were recorded and stored. Vessel micropuncture was performed with 21-gauge needle. 0.18 wire guide is introduced into the vein. 0.18 wire is introduced into the vena cava under fluoroscopy. Subcutaneous tunnel formed in the upper chest. Permanent tunneled dialysis catheter placed in the subcutaneous tunnel. Dilators were introduced over the J-wire guide. Tunneled dialysis catheter is introduced through a dilator with venous sheath into the superior vena cava under fluoroscopic guidance. The catheter is sutured in place to the skin and a sterile dressing applied. Perfusion to the extremity distal to the point of catheter insertion is checked and found to be adequate Attending radiologist was present for the entire procedure Estimated blood loss2 cc. The patient tolerated the procedure well and there were no complications Impression: Successful ultrasound-guided needle placement right internal jugular vein Successful permanent tunneled dialysis catheter insertion, percutaneous Fluoroscopy 0.5 minute radiation dose 3.16 milligray. One spot fluoroscopic chest films AP chest performed at completion procedure demonstrates satisfactory position dialysis catheter. May use dialysis catheter.
[2025-04-11 06:27] LABS: INR 1.0 (0.9-1.3); Partial Thromboplastin Time 25.7 Seconds (22.0-36.0); Prothrombin Time 10.9 Seconds (9.0-12.2)
[2025-04-11 06:42] LABS: Basophils # (Auto) 0.0 Thou/mm3 (0.0-0.2); Basophils % (Auto) 0 % (0-2.5); Eosinophils # (Auto) 0.1 Thou/mm3 (0.0-0.5); Eosinophils % (Auto) 2 % (0-10); Hematocrit 27.8 % (36.0-46.0); Hemoglobin 9.2 g/dL (12.0-16.0); Immature Granulocytes Auto 0.01 Thou/mm3 (0.00-0.00); Lymphocytes # (Auto) 1.0 Thou/mm3 (1.0-4.8); Lymphocytes % (Auto) 22 % (10-50); Mean Corpuscular HGB Conc 33.1 g/dl (31.0-37.0); Mean Corpuscular Hemoglobin 29.3 pg (25.0-35.0); Mean Corpuscular Volume 89 fL (80-100); Monocytes # (Auto) 0.3 Thou/mm3 (0.0-0.8); Monocytes % (Auto) 7 % (0-12); Neutrophils # (Auto) 3.1 Thou/mm3 (1.8-7.7); Neutrophils % (Auto) 69 % (37-80); Nucleated Red Blood Cell # 0.00 Thou/mm3 (0.00-0.00); Nucleated Red Blood Cell % 0 /100 WBC (0); Platelet Count 193 Thou/mm3 (140-440); RDW Standard Deviation 42.7 fL (36.4-46.3); Red Blood Count 3.14 Miln/mm3 (4.00-5.20); White Blood Count 4.5 Thou/mm3 (3.6-11.0)
[2025-04-11 07:06] LABS: Alanine Aminotransferase 9 U/L (10-49); Albumin, Serum 3.1 gm/dL (3.5-5.0); Albumin/Globulin Ratio 1.3 (1.2-2.2); Alkaline Phosphatase 94 U/L (46-116); Anion Gap 9 (7-16); Aspartate Amino Transferase 12 U/L (0-34); BUN/Creatinine Ratio 7 Ratio (12-20); Bilirubin,Total 0.4 mg/dL (0.3-1.2); Blood Urea Nitrogen 34 mg/dL (9-23); Calcium 7.5 mg/dL (8.3-10.6); Calcium (Corrected) 8.2 mg/dL (8.5-10.1); Carbon Dioxide 26.6 mMol/L (20.0-31.0); Chloride 102 mMol/L (98-107); Creatinine (Component) 4.7 mg/dL (0.6-1.3); Estimated Creatinine Clearance 10.8 mL/min (>60); Globulin 2.4 gm/dL (2.3-3.5); Glucose 128 mg/dL (74-106); Magnesium 1.5 mg/dL (1.6-2.6); Osmolality,Calculated 285 (275-295); Phosphorous 3.6 mg/dL (2.4-5.1); Potassium 3.8 mMol/L (3.4-5.1); Sodium 138 mMol/L (136-145); Total Protein 5.5 gm/dL (5.7-8.2); eGFR 10 See Note
[2025-04-11] MEDS: Magnesium Sulfate 4 GM Ivpb 4 GM/50 ML BAG IV (09:09)
[2025-04-11] MEDS: BUMETANIDE INJ 0.25 MG/ML VIAL 4 ML 2 MG IVP ×2 (09:10→21:07)
[2025-04-11] MEDS: CALCIUM CARBONATE 600 MG TABLET PO (09:10)
--- NOTE | 2025-04-11 09:28 | PC.SS ---
Late note 04-10-25: SS met with patient regarding her d/c plan. Pt is alert/oriented. Pt was admitted for Shortness Of Breath/Dyspnea. Pt confirmed demographic and contact information is correct on facesheet. Pt resides with and kids. Pt ambulates independently without assistance or DME. Pt is ok with all ADLs. Patient?s pharmacy of choice is [facility] on [address] Pt named her , Raulito Ferreira medical decision maker if she is unable. Patient?s choice is to return home upon d/c. Pt states she is diabetic, has glucometer, and test strips. Pt is new to dialysis and cobol engineer is Dr. Mcgovern. Pt currently has a [facility] and is aware to follow up with the Medical office. D/C plan: Return home Next of Kin: Raulito Ferreira, , phone# [phone] PCP: Dr. Poli Treadwell from [facility] Address: Correct on facesheet
--- NOTE | 2025-04-11 09:42 | PC.SS ---
Addendum entered by Qi Olivo 04/11/25 12:53: SS spoke to Natalee corporate statistical financial analyst who explained pt has to apply for Medical due to being . Addendum entered by Qi Olivo 04/11/25 10:04: SS has contacted Karlie from [facility] who explained they have accepted [facility] in the past due to dialysis being emergent and temporary Medical for 30 days. SS has informed corporate statistical financial analystNatalee [facility]. Original Note: SS spoke to Material SchedulerNatalee who explained pt is now self pay and [facility] has been removed. Natalee explained she will contact Mary Carmen the Medical Worker and will email [employer]. Natalee is aware pt is requiring Medical for out pt dialysis.
--- NOTE | 2025-04-11 09:55 | ESPR_ITS ---
<Statement entered by Aneesh Hancock MD - 04/24/25 07:42> I reviewed above note and agree with findings and plans. I have also personally examined the patient with medicine team and went over assessment and plan with medical team including internal wholesaler and resident physician. <Statement entered by Lorena Peter MD - 04/11/25 21:45> Pt is seen at bedside. Pt endorses to feeling significantly better. Currently saturating above 94% on 2L oxygen. Pt is scheduled for permanent tunneled dialysis catheter placement and then a session of dialysis. Pt is pending echo and outpatient dialysis scheduled, as well as insurance authorization. Patient was seen and examined by me personally. I have directly supervised and reviewed documentation by the team resident and agree with its findings. ------- Plan of care was discussed with the attending, Dr. Santi Peter, PGY-2 Documentation for date of: 04/11/25 Subjective Subjective Interval history: Overnight events: No acute events overnight. Patient was seen and examined at bedside. AM vitals and labs reviewed. Patient breathing comfortably on 2 L nasal cannula. Patient stated that she is breathing more comfortably compared to yesterday. No complaints at this time. Magnesium 1.5 this a.m., replenished. Pending TDC today with day 3 of 3 hemodialysis to follow. Review of systems otherwise negative except for what is mentioned above. Exam Vital Signs Temp Pulse Resp BP Pulse Ox O2 Del Method O2 Flow Rate 97.9 F 71 17 172/89 H 94 L Room Air 1 04/11/25 08:00 04/11/25 09:10 04/11/25 08:00 04/11/25 09:10 04/11/25 08:00 04/11/25 08:00 04/11/25 07:02 FiO2 30 04/10/25 07:55 Narrative Exam Physical Exam: General: Alert, no acute distress. Skin: Warm, dry, intact, no obvious rash. Head: Normocephalic, atraumatic. Eye: Normal conjunctiva, PERRL. Cardiovascular: Regular rate and rhythm, no murmur, +S1/S2. Respiratory: Lungs are clear to auscultation, respirations unlabored, no crackles, no wheezing. Gastrointestinal: Soft, nontender, non-distended. No guarding or rebound tenderness. Extremities: Trace bilateral pedal edema, no cyanosis, no clubbing. 2+ radial pulse bilaterally, 2+ pedal pulse bilaterally. Neuro: No focal deficits observed. Conversant, moving all extremities. No overt cerebellar signs/incoordination. Psychiatric: Cooperative, appropriate affect. Objective Labs 04/11/25 05:21 04/11/25 05:21 Labs: Laboratory Results - last 24 hr 04/09/25 04/10/25 04/11/25 07:50 05:39 05:21 WBC 4.5 RBC 3.14 L Hgb 9.2 L Hct 27.8 L MCV 89 MCH 29.3 MCHC 33.1 RDW Std Deviation 42.7 Plt Count 193 Neut % (Auto) 69 Lymph % (Auto) 22 Hand % (Auto) 7 Eos % (Auto) 2 Baso % (Auto) 0 Neut # (Auto) 3.1 Lymph # (Auto) 1.0 Hand # (Auto) 0.3 Eos # (Auto) 0.1 Baso # (Auto) 0.0 Immature Gran # (Auto) 0.01 H Absolute Nucleated RBC 0.00 Immature Gran % 0 Nucleated RBC % 0 PT 10.9 INR 1.0 APTT 25.7 Sodium 138 Potassium 3.8 D Chloride 102 Carbon Dioxide 26.6 Anion Gap 9 BUN 34 H Creatinine 4.7 H* D Estim Creat Clear Calc 10.8 L eGFR 10 L* BUN/Creatinine Ratio 7 L Glucose 128 H Calculated Osmolality 285 Calcium 7.5 L Corrected Calcium 8.2 L Phosphorus 3.6 Magnesium 1.5 L Iron 51 TIBC 247 L Iron Saturation 20 Unsat Iron Binding 196 L Total Bilirubin 0.4 AST 12 ALT 9 L Alkaline Phosphatase 94 Total Protein 5.5 L Albumin 3.1 L Globulin 2.4 Albumin/Globulin Ratio 1.3 Folate > 24.00 Hepatitis A IgM Ab Non Reactive Hep Bs Antigen Non Reactive Hep B Core IgM Ab Non Reactive Hepatitis C Antibody Non Reactive ABG Interpretation ABG results: 04/09/25 08:41 ABG pH 7.31 L ABG pCO2 40 ABG pO2 78 L ABG HCO3 20 ABG O2 Saturation 96 ABG Base Excess -6 L Quality Measures Quality Measures VTE prophylaxis Assessment & Plan Assessment Current Active Medications: Generic Name Dose Route Start Last Admin Trade Name Freq PRN Reason Stop Dose Admin Acetaminophen 650 mg 04/08/25 21:29 Acetaminophen 325 Mg Tablet PO 05/08/25 21:28 Q6H PRN Fever >101.5 Acetaminophen 650 mg 04/08/25 21:34 Acetaminophen 325 Mg Tablet PO 05/08/25 21:33 Q6H PRN PAIN SCALE 1-3 (mild Amlodipine Besylate 10 mg 04/10/25 09:00 04/11/25 09:09 Amlodipine Besylate 5 Mg Tablet PO 05/10/25 08:59 10 mg QDAY TEMO Administration Bumetanide 2 mg 04/09/25 21:00 04/11/25 09:10 Bumetanide Inj 0.25 Mg/Ml Vial 4 Ml IVP 05/09/25 20:59 2 mg BID TEMO Administration Calcium Carbonate 600 mg 04/09/25 09:00 04/11/25 09:10 Calcium Carbonate 600 Mg Tablet PO 05/09/25 08:59 600 mg QDAY TEMO Administration Carvedilol 12.5 mg 04/10/25 08:00 04/11/25 09:10 Carvedilol 12.5 Mg Tablet PO 05/10/25 07:59 12.5 mg BIDWM TEMO Administration Dextrose 25 ml 04/08/25 19:10 Dextrose 50%-Water Inj 50 Ml Syringe IV 05/08/25 19:09 Q15MIN PRN BG 50-70 responsive npo pt Dextrose 50 ml 04/08/25 19:10 Dextrose 50%-Water Inj 50 Ml Syringe IV 05/08/25 19:09 Q15MIN PRN BG <50 OR BG <70 & pt unresponsive Glucagon 1 mg 04/08/25 19:10 Glucagon Inj 1 Mg Vial IM Q15MIN PRN BG <70, and no IV access Heparin Sodium (Porcine) 5,000 unit 04/09/25 09:00 04/11/25 09:10 Heparin Sod Inj 5000 Unit/Ml Vial SC 04/23/25 08:59 Not Given Q12HR TEMO Heparin Sodium (Porcine) 2,600 unit 04/09/25 14:04 04/10/25 10:39 Heparin Sod Inj 1000 Unit/Ml Vial 10 Ml INDWELLCAT 04/23/25 14:03 2,600 unit PRN PRN Administration DIALYSIS Albumin Human 25 gm in 100 mls @ 100 mls/min 04/09/25 15:50 Albuminar-25 Ivpb IV PRN PRN DIALYSIS Magnesium Sulfate 4 gm in 50 mls @ 12.5 mls/hr 04/11/25 08:24 04/11/25 09:09 Magnesium Sulfate Ivpb IV 04/11/25 12:23 12.5 mls/hr X1 ONE Administration Ondansetron HCl 4 mg 04/08/25 21:34 04/08/25 22:27 Ondansetron Inj 2 Mg/Ml Inj 2 Ml IVP 05/08/25 21:33 4 mg Q6H PRN Administration NAUSEA OR VOMITING Protocol Sennosides 1 tab 04/08/25 21:34 Senna Tablet PO 05/08/25 21:33 QDAY PRN constipation Protocol Plan Mrs. Crowley is a 54 year old female with a history of HTN, T2DM, and CKD who presented to [facility] ED on 04/08 with worsening shortness of breath and anasarca. The patient was admitted for management of acute renal failure and fluid overload. #ESRD, likely 2/2 diabetic nephropathy and hypertensive nephrosclerosis #New onset dialysis #DEBBY on underlying CKD (resolving) #? New onset CHF Patient presented to the ED with creatinine of 8.0, BUN 71, and GFR of 6 and significant bilateral lower extremity edema. The patient previously followed a group billing coordinator, but stopped over a year ago due to insurance issues. According to the PCP, the patient had issues with diabetes, which is thought to be the cause of her chronic kidney disease. Patient has never had an echocardiogram and has no known history of heart failure or cardiac disease. BNP in ED was over 3,000. Initially attempted to diurese patient, but had to transfuse 2 units of packed RBCs, which resulted in the patient becoming further fluid overloaded, worsening her shortness of breath. Given this patient's previous history of CKD without history of CHF, this is most likely a result of acute renal failure, leading to fluid overload, that required dialysis as the patient did not respond sufficiently to diuresis. ? Nephrology consulted, recommends tunneled dialysis catheter placement 04/11 with day 3 of 3 hemodialysis 04/11 afterwards ? Strict I's and O's, daily weights ? Avoid nephrotoxic medications ? Renally dose medications ? Continue renal diet ? Continue to monitor renal panel ? Continue furosemide 40 mg IV push twice daily ? Gave patient Bumex 2 mg IV push one-time dose on 04/09 prior to dialysis ? Pending echocardiogram for evaluation of possible CHF #High anion gap metabolic acidosis (resolved) #Uremia (resolved) On repeat renal panel 04/09, the patient had bicarb of 14.6 with anion gap of 19. Patient also had an ABG which showed pH of 7.31. This is most likely due to the patient's acute renal failure, resulting in retention of hydrogen and uremia of 62. ? Will continue to monitor with renal panel daily ? Will continue to manage with hemodialysis #Hyperkalemia (resolved) Patient presented with potassium of 5.5, which has not improved over time after hyperkalemia protocol. Patient did receive 2 units of packed RBCs and diuresis. This is likely due to the patient's acute renal failure resulting in accumulation of potassium. ? Nephrology consulted, recommends hemodialysis ? Will continue to monitor with daily labs ? Will consider further medication management on top of dialysis if dialysis is not sufficient in decreasing potassium #Normocytic anemia (resolved) Patient came in with a hemoglobin of 5.7 and hematocrit of 18.0. The patient received 2 units of packed RBCs in the ED, which increased her H&H to 9.2/27.9. This is likely secondary to the patient's acute renal failure and the patient's CKD over time. ? Will continue to monitor, transfuse if hemoglobin less than 7 per protocol DVT Prophylaxis: Heparin GI Prophylaxis: N/A Bowel: N/A Diet: Diabetic Renal Rodriguez: Yes Lines: Peripheral IV Antibiotics: N/A Code Status: FULL Reason for Hospitalization: Acute renal failure and fluid overload Other Barriers to Discharge: TDC, dialysis, and insurance for dialysis chair time Patient plan of care was discussed with the senior resident Dr. Peter (PGY-2) and attending physician Dr. Hancock. Chente Pickens, PGY1
[2025-04-11] MEDS: LIDOCAINE INJ PF 1% 30 ML VIAL 8 ML INFL (12:30)
[2025-04-11] MEDS: HEPARIN SOD LOCK SYR 100 UNIT/ML 500 UNIT INTRACATH (12:35)
[2025-04-11] MEDS: fentaNYL CIT INJ 50 mCg/ML AMP 2ML IVP (12:58)
[2025-04-11] MEDS: HEPARIN SOD INJ 5000 UNIT/ML VIAL 10 ML 3800 UNIT INTRACATH (13:36)
--- NOTE | 2025-04-11 15:07 | PC.SS ---
9:42 SS spoke to Career Law ClerkNatalee who explained pt is now self pay and [facility] has been removed. Natalee explained she will contact Mary Carmen the Medical Worker and will email Magdy Westbrook. Natalee is aware pt is requiring Medical for out patient dialysis. 10:04: SS has contacted Karlie from [facility] who explained they have accepted [facility] in the past due to dialysis being emergent and temporary Medical is for 30 days. SS has informed legal financial specialistNatalee. SS was informed by Natalee legal financial specialist she has emailed Magdy Lala the information provided by patient's .
[2025-04-11] MEDS: HEPARIN SOD INJ 1000 UNIT/ML VIAL 10 ML 3800 UNIT INDWELLCAT (17:40)
[2025-04-11] MEDS: HEPARIN SOD INJ 5000 UNIT/ML VIAL SC (21:07)
[2025-04-12] VITALS (15 sets, daily range): BP systolic 130–162; BP diastolic 70–81; PULSE 67–77; RESP 18–23; TEMP 36.1–36.8; O2SAT 91–99; BMI 27.1
[2025-04-12 06:40] LABS: Glucose Estimated Average 137 mg/dL (80-131); Hemoglobin A1C 6.4 % Hgb (4.8-6.0)
[2025-04-12 06:42] LABS: Basophils # (Auto) 0.0 Thou/mm3 (0.0-0.2); Basophils % (Auto) 0 % (0-2.5); Eosinophils # (Auto) 0.0 Thou/mm3 (0.0-0.5); Eosinophils % (Auto) 1 % (0-10); Hematocrit 27.6 % (36.0-46.0); Hemoglobin 9.1 g/dL (12.0-16.0); Immature Granulocytes Auto 0.00 Thou/mm3 (0.00-0.00); Lymphocytes # (Auto) 0.9 Thou/mm3 (1.0-4.8); Lymphocytes % (Auto) 19 % (10-50); Mean Corpuscular HGB Conc 33.0 g/dl (31.0-37.0); Mean Corpuscular Hemoglobin 28.8 pg (25.0-35.0); Mean Corpuscular Volume 87 fL (80-100); Monocytes # (Auto) 0.4 Thou/mm3 (0.0-0.8); Monocytes % (Auto) 9 % (0-12); Neutrophils # (Auto) 3.2 Thou/mm3 (1.8-7.7); Neutrophils % (Auto) 72 % (37-80); Nucleated Red Blood Cell # 0.00 Thou/mm3 (0.00-0.00); Nucleated Red Blood Cell % 0 /100 WBC (0); Platelet Count 180 Thou/mm3 (140-440); RDW Standard Deviation 41.4 fL (36.4-46.3); Red Blood Count 3.16 Miln/mm3 (4.00-5.20); White Blood Count 4.5 Thou/mm3 (3.6-11.0)
[2025-04-12 07:10] LABS: Albumin, Serum 3.3 gm/dL (3.5-5.0); Anion Gap 9 (7-16); BUN/Creatinine Ratio 6 Ratio (12-20); Blood Urea Nitrogen 21 mg/dL (9-23); Calcium 8.6 mg/dL (8.3-10.6); Calcium (Corrected) 9.2 mg/dL (8.5-10.1); Carbon Dioxide 27.7 mMol/L (20.0-31.0); Chloride 101 mMol/L (98-107); Creatinine (Component) 3.4 mg/dL (0.6-1.3); Estimated Creatinine Clearance 13.9 mL/min (>60); Glucose 113 mg/dL (74-106); Magnesium 2.1 mg/dL (1.6-2.6); Osmolality,Calculated 279 (275-295); Phosphorous 2.7 mg/dL (2.4-5.1); Potassium 4.0 mMol/L (3.4-5.1); Sodium 138 mMol/L (136-145); eGFR 15 See Note
[2025-04-12] MEDS: BUMETANIDE INJ 0.25 MG/ML VIAL 4 ML 2 MG IVP ×2 (08:10→20:30)
[2025-04-12] MEDS: CALCIUM CARBONATE 600 MG TABLET PO (08:10)
[2025-04-12] MEDS: HEPARIN SOD INJ 5000 UNIT/ML VIAL SC ×2 (08:11→20:30)
--- NOTE | 2025-04-12 11:37 | PC.SS ---
Follow up note: TB read today. SS spoke to Natalee, financial health counselor who explained was provided with the to [facility] to call and apply for Medical. SS met with to call and SS was placed supply and distribution manager back last and wait time is 58 minutes. SS spoke to and encouraged him to go to the Welfare office to apply for Medical for his . confirmed he has Medical phone#. Dialysis chair time is pending due to pt still being self pay.
[2025-04-12] MEDS: INSULIN LISPRO (AdmeLOG) 1 UNIT/0.01 ML UNIT SC (12:17)
--- NOTE | 2025-04-12 13:28 | ESPR_ITS ---
<Statement entered by Aneesh Hancock MD - 04/24/25 07:43> I reviewed above note and agree with findings and plans. I have also personally examined the patient with medicine team and went over assessment and plan with medical team including hr internship and resident physician. <Statement entered by Lorena Peter MD - 04/12/25 15:44> Patient seen at bedside. Denies SOB, pt has significant improvement in LE edema and her symptoms. Pt underwent 3 sessions of dialysis inpatient. Currently awaiting outpatient dialysis chair time and pending echo. Patient was seen and examined by me personally. I have directly supervised and reviewed documentation by the team resident and agree with its findings. ------- Plan of care was discussed with the attending, Dr. Santi Peter, PGY-2 Documentation for date of: 04/12/25 Subjective Subjective Interval history: No acute overnight events. Patient seen and examined at bedside, senior market research analyst used. Patient reports feeling well, denies chest pain, shortness of breath, abdominal pain, urinary symptoms or leg swelling. Barber catheter still in, good urine output no blood. Patient received tunneled dialysis catheter yesterday with third session of hemodialysis yesterday as well. BUN and creatinine improved. A1c 6.4. Next HD session per Dr. Mcgovern. Awaiting patient insurance and outpatient dialysis chair times. Discontinue Barber. Exam Vital Signs Temp Pulse Resp BP Pulse Ox O2 Del Method O2 Flow Rate 97.2 F 67 18 140/72 H 99 Room Air 2 04/12/25 11:51 04/12/25 11:51 04/12/25 11:51 04/12/25 11:51 04/12/25 11:51 04/12/25 11:51 04/12/25 08:37 FiO2 30 04/10/25 07:55 Narrative Exam GENERAL: AOx3, no acute distress, well nourished HEENT: NC/AT, mucous membranes moist, bilateral sclera anicteric, right IJ tunneled dialysis catheter noted CARDIOVASCULAR: regular rate and rhythm, S1/S2 present, no murmurs appreciated PULMONARY: clear to auscultation bilaterally, no rales/rhonchi/wheezes ABDOMINAL: soft, non-tender, non-distended, no rebound/guarding, bowel sounds present EXTREMITIES: no peripheral edema SKIN: warm and dry, intact, no rashes NEURO: CN II-XII grossly intact, no focal deficits, alert, following commands Objective Labs 04/12/25 05:33 04/12/25 05:33 Labs: Laboratory Results - last 24 hr 04/12/25 05:33 WBC 4.5 RBC 3.16 L Hgb 9.1 L Hct 27.6 L MCV 87 MCH 28.8 MCHC 33.0 RDW Std Deviation 41.4 Plt Count 180 Neut % (Auto) 72 Lymph % (Auto) 19 Roberts % (Auto) 9 Eos % (Auto) 1 Baso % (Auto) 0 Neut # (Auto) 3.2 Lymph # (Auto) 0.9 L Roberts # (Auto) 0.4 Eos # (Auto) 0.0 Baso # (Auto) 0.0 Immature Gran # (Auto) 0.00 Absolute Nucleated RBC 0.00 Immature Gran % 0 Nucleated RBC % 0 Sodium 138 Potassium 4.0 Chloride 101 Carbon Dioxide 27.7 Anion Gap 9 BUN 21 Creatinine 3.4 H D Estim Creat Clear Calc 13.9 L eGFR 15 L BUN/Creatinine Ratio 6 L Glucose [address] Glu mg/dL 137 H Hemoglobin A1c 6.4 H Calculated Osmolality 279 Calcium 8.6 Corrected Calcium 9.2 Phosphorus 2.7 Magnesium 2.1 Albumin 3.3 L ABG Interpretation ABG results: 04/09/25 08:41 ABG pH 7.31 L ABG pCO2 40 ABG pO2 78 L ABG HCO3 20 ABG O2 Saturation 96 ABG Base Excess -6 L Quality Measures Quality Measures VTE prophylaxis Assessment & Plan Assessment Current Active Medications: Generic Name Dose Route Start Last Admin Trade Name Lonnie PRN Reason Stop Dose Admin Acetaminophen 650 mg 04/08/25 21:29 Acetaminophen 325 Mg Tablet PO 05/08/25 21:28 Q6H PRN Fever >101.5 Acetaminophen 650 mg 04/08/25 21:34 Acetaminophen 325 Mg Tablet PO 05/08/25 21:33 Q6H PRN PAIN SCALE 1-3 (mild Amlodipine Besylate 10 mg 04/10/25 09:00 04/12/25 08:10 Amlodipine Besylate 5 Mg Tablet PO 05/10/25 08:59 10 mg QDAY TEMO Administration Bumetanide 2 mg 04/09/25 21:00 04/12/25 08:10 Bumetanide Inj 0.25 Mg/Ml Vial 4 Ml IVP 05/09/25 20:59 2 mg BID TEMO Administration Calcium Carbonate 600 mg 04/09/25 09:00 04/12/25 08:10 Calcium Carbonate 600 Mg Tablet PO 05/09/25 08:59 600 mg QDAY TEMO Administration Carvedilol 12.5 mg 04/10/25 08:00 04/12/25 08:09 Carvedilol 12.5 Mg Tablet PO 05/10/25 07:59 12.5 mg BIDWM TEMO Administration Dextrose 25 ml 04/11/25 12:14 Dextrose 50%-Water Inj 50 Ml Syringe IV 05/11/25 12:13 Q15MIN PRN BG 50-70 responsive npo pt Dextrose 50 ml 04/11/25 12:14 Dextrose 50%-Water Inj 50 Ml Syringe IV 05/11/25 12:13 Q15MIN PRN BG <50 OR BG <70 & pt unresponsive Glucagon 1 mg 04/11/25 12:14 Glucagon Inj 1 Mg Vial IM Q15MIN PRN BG <70, and no IV access Heparin Sodium (Porcine) 5,000 unit 04/09/25 09:00 04/12/25 08:11 Heparin Sod Inj 5000 Unit/Ml Vial SC 04/23/25 08:59 5,000 unit Q12HR TEMO Administration Heparin Sodium (Porcine) 3,800 unit 04/11/25 16:53 04/11/25 17:40 Heparin Sod Inj 1000 Unit/Ml Vial 10 Ml INDWELLCAT 04/25/25 16:52 3,800 unit X1 PRN Administration DIALYSIS Albumin Human 25 gm in 100 mls @ 100 mls/min 04/09/25 15:50 Albuminar-25 Ivpb IV PRN PRN DIALYSIS Insulin Human Lispro 0 unit 04/11/25 17:00 04/12/25 12:17 Insulin Lispro (Admelog) 1 Unit/0.01 Ml Unit SC 05/11/25 16:59 1 unit AC TEMO Administration Protocol Ondansetron HCl 4 mg 04/08/25 21:34 04/08/25 22:27 Ondansetron Inj 2 Mg/Ml Inj 2 Ml IVP 05/08/25 21:33 4 mg Q6H PRN Administration NAUSEA OR VOMITING Protocol Sennosides 1 tab 04/08/25 21:34 Senna Tablet PO 05/08/25 21:33 QDAY PRN constipation Protocol Plan Serena Crowley is a 54F with a pmhx significant for HTN, T2DM, and ESRD who presented to [facility] ED on 04/08 with worsening shortness of breath and anasarca, admitted for acute renal failure and initation of HD. #New ESRD, likely 2/2 diabetic nephropathy and hypertensive nephrosclerosis #Suspicion of new onset CHF Presented with creatinine of 8.0, BUN 71, and GFR of 6 and significant bilateral lower extremity edema. Previously followed a nursing care partner, but stopped over a year ago due to insurance issues. Likely 2/2 uncontrolled diabetes exacerbated by fluid overload from possible underlying CHF vs primarily renal failure. No known history of heart failure or cardiac disease, no echo on file. BNP >3,000. Initially attempted to diurese patient, but had to transfuse 2 units of packed RBCs, which resulted in the patient becoming further fluid overloaded, worsening her shortness of breath, leading to requirement for HD. TDC placed 04/11. Received HD: 04/09, 04/10, 04/11 Plan: ? Nephrology consulted, recs appreciated - IV Bumex 2 mg BID ? Strict I&O's, daily weights ? Avoid nephrotoxic medications and renally dose medications ? CTM renal panel ? F/u echocardiogram for evaluation of possible CHF - Discontinue barber #High anion gap metabolic acidosis (resolved) #Uremia (resolved) On repeat renal panel 04/09, the patient had bicarb of 14.6 with anion gap of 19. Patient also had an ABG which showed pH of 7.31. Likely due to acute renal failure, resulting in retention of hydrogen and uremia of 62. Plan:L - CTM renal panel - Continue HD per nephrology #Hyperkalemia (resolved) Patient presented with potassium of 5.5, which has not improved over time after hyperkalemia protocol. Patient did receive 2 units of packed RBCs and diuresis. This is likely due to the patient's acute renal failure resulting in accumulation of potassium. Plan: ? Nephrology consulted, recommends hemodialysis - CTM renal panel #Normocytic anemia (resolved) Admission H&H 5.7/18. s/p 2 units of packed RBCs in the ED, which increased her H&H to 9.2/27.9. There is no signs of active bleeding, no hematemesis, denies melana and hematochezia. This is likely secondary to the patient's acute renal failure and the patient's CKD which has now progressed to ESRD. Hgb has remained stable s/p transfusions Plan: ? CTM H&H, transfuse if hemoglobin <7 Hospital management: Lines: TDC, peripheral IV Diet: Renal Bowel: Senna GI prophylaxis: None DVT prophylaxis: heparin q12 Disposition: med surg awaiting HD chair placement CODE STATUS: Full code Plan of care discussed with attending Dr. Hancock, and PGY-2 Dr. Peter. Kaia Courtney, DO PGY-1 Internal Medicine
[2025-04-12 16:13] LABS: Vitamin B12 574 pg/mL (211-911)
[2025-04-13] VITALS (28 sets, daily range): BP systolic 135–169; BP diastolic 78–92; PULSE 65–77; RESP 15–19; TEMP 36.2–36.9; O2SAT 97–99; BMI 28.0
[2025-04-13 05:46] LABS: Basophils # (Auto) 0.0 Thou/mm3 (0.0-0.2); Basophils % (Auto) 0 % (0-2.5); Eosinophils # (Auto) 0.1 Thou/mm3 (0.0-0.5); Eosinophils % (Auto) 2 % (0-10); Hematocrit 25.0 % (36.0-46.0); Immature Granulocytes Auto 0.01 Thou/mm3 (0.00-0.00); Lymphocytes # (Auto) 1.2 Thou/mm3 (1.0-4.8); Lymphocytes % (Auto) 24 % (10-50); Mean Corpuscular HGB Conc 33.6 g/dl (31.0-37.0); Mean Corpuscular Hemoglobin 29.4 pg (25.0-35.0); Mean Corpuscular Volume 87 fL (80-100); Monocytes # (Auto) 0.4 Thou/mm3 (0.0-0.8); Monocytes % (Auto) 7 % (0-12); Neutrophils # (Auto) 3.4 Thou/mm3 (1.8-7.7); Neutrophils % (Auto) 67 % (37-80); Nucleated Red Blood Cell # 0.00 Thou/mm3 (0.00-0.00); Nucleated Red Blood Cell % 0 /100 WBC (0); Platelet Count 173 Thou/mm3 (140-440); RDW Standard Deviation 40.8 fL (36.4-46.3); Red Blood Count 2.86 Miln/mm3 (4.00-5.20); White Blood Count 5.1 Thou/mm3 (3.6-11.0)
[2025-04-13 05:54] LABS: Hemoglobin 8.4 g/dL (12.0-16.0)
[2025-04-13 06:19] LABS: Albumin, Serum 3.2 gm/dL (3.5-5.0); Anion Gap 9 (7-16); BUN/Creatinine Ratio 8 Ratio (12-20); Blood Urea Nitrogen 33 mg/dL (9-23); Calcium 8.0 mg/dL (8.3-10.6); Calcium (Corrected) 8.6 mg/dL (8.5-10.1); Carbon Dioxide 27.5 mMol/L (20.0-31.0); Chloride 99 mMol/L (98-107); Creatinine (Component) 4.2 mg/dL (0.6-1.3); Estimated Creatinine Clearance 11.5 mL/min (>60); Glucose 131 mg/dL (74-106); Magnesium 2.0 mg/dL (1.6-2.6); Osmolality,Calculated 279 (275-295); Phosphorous 2.8 mg/dL (2.4-5.1); Potassium 4.0 mMol/L (3.4-5.1); Sodium 135 mMol/L (136-145); eGFR 12 See Note
[2025-04-13] MEDS: HEPARIN SOD INJ 5000 UNIT/ML VIAL SC ×2 (08:07→20:24)
[2025-04-13] MEDS: CALCIUM CARBONATE 600 MG TABLET PO (08:07)
--- NOTE | 2025-04-13 09:34 | ESPR_ITS ---
<Statement entered by Aneesh Hancock MD - 04/28/25 15:04> I reviewed above note and agree with findings and plans. I have also personally examined the patient with medicine team and went over assessment and plan with medical team including internal revenue service agent and resident physician. <Statement entered by Manohar Kim MD - 04/13/25 15:10> Patient was seen and examined at bedside. I agree on the assessment and plan on this note as documented by resident Chente Pickens PGY1. 56-year-old female with past medical history of hypertension and type 2 diabetes mellitus, presented with DEBBY had temporary dialysis catheter placed 04/09, permanent dialysis catheter placed 04/11, received 3 inpatient dialysis treatment. TB skin test read 04/12 negative, hepatitis panel negative, patient currently does not have insurance and is in the process of getting insurance per social work manager, patient is pending chair time post obtaining of insurance. Patient will receive dialysis today, stable no active complaints. Case discussed with attending Dr. Santi Kim MD PGY-2 Documentation for date of: 04/13/25 Subjective Subjective Interval history: No acute overnight events. Patient seen and examined at bedside, tax consultant used. Patient reports feeling well, denies chest pain, shortness of breath, abdominal pain, urinary symptoms or leg swelling. Barber catheter still was removed yesterday. Patient has permanent tunneled dialysis catheter placed, is scheduled for hemodialysis today. Awaiting patient insurance and outpatient dialysis chair time. Exam Vital Signs Temp Pulse Resp BP Pulse Ox O2 Del Method O2 Flow Rate 97.1 F 67 18 135/78 H 99 Room Air 2 04/13/25 08:00 04/13/25 08:06 04/13/25 08:00 04/13/25 08:06 04/13/25 08:00 04/13/25 08:00 04/13/25 04:00 FiO2 30 04/13/25 04:00 Narrative Exam GENERAL: AOx3, no acute distress, well nourished HEENT: NC/AT, mucous membranes moist, bilateral sclera anicteric, right IJ tunneled dialysis catheter noted CARDIOVASCULAR: regular rate and rhythm, S1/S2 present, no murmurs appreciated PULMONARY: clear to auscultation bilaterally, no rales/rhonchi/wheezes ABDOMINAL: soft, non-tender, non-distended, no rebound/guarding, bowel sounds present EXTREMITIES: no peripheral edema SKIN: warm and dry, intact, no rashes NEURO: CN II-XII grossly intact, no focal deficits, alert, following commands Objective Labs 04/13/25 05:25 04/13/25 05:25 Labs: Laboratory Results - last 24 hr 04/08/25 04/09/25 04/13/25 13:40 07:50 05:25 WBC 5.1 RBC 2.86 L Hgb 8.4 L Hct 25.0 L MCV 87 MCH 29.4 MCHC 33.6 RDW Std Deviation 40.8 Plt Count 173 Neut % (Auto) 67 Lymph % (Auto) 24 [place] % (Auto) 7 Eos % (Auto) 2 Baso % (Auto) 0 Neut # (Auto) 3.4 Lymph # (Auto) 1.2 [place] # (Auto) 0.4 Eos # (Auto) 0.1 Baso # (Auto) 0.0 Immature Gran # (Auto) 0.01 H Absolute Nucleated RBC 0.00 Immature Gran % 0 Nucleated RBC % 0 Sodium 135 L Potassium 4.0 Chloride 99 Carbon Dioxide 27.5 Anion Gap 9 BUN 33 H Creatinine 4.2 H* D Estim Creat Clear Calc 11.5 L eGFR 12 L* BUN/Creatinine Ratio 8 L Glucose 131 H Calculated Osmolality 279 Calcium 8.0 L Corrected Calcium 8.6 Phosphorus 2.8 Magnesium 2.0 Albumin 3.2 L Vitamin B12 574 Misc Test Result See Sep Rpt ABG Interpretation ABG results: 04/09/25 08:41 ABG pH 7.31 L ABG pCO2 40 ABG pO2 78 L ABG HCO3 20 ABG O2 Saturation 96 ABG Base Excess -6 L Quality Measures Quality Measures VTE prophylaxis Assessment & Plan Assessment Current Active Medications: Generic Name Dose Route Start Last Admin Trade Name Freq PRN Reason Stop Dose Admin Acetaminophen 650 mg 04/08/25 21:29 Acetaminophen 325 Mg Tablet PO 05/08/25 21:28 Q6H PRN Fever >101.5 Acetaminophen 650 mg 04/08/25 21:34 Acetaminophen 325 Mg Tablet PO 05/08/25 21:33 Q6H PRN PAIN SCALE 1-3 (mild Amlodipine Besylate 10 mg 04/10/25 09:00 04/13/25 08:05 Amlodipine Besylate 5 Mg Tablet PO 05/10/25 08:59 Not Given QDAY TEMO Bumetanide 2 mg 04/09/25 21:00 04/13/25 08:06 Bumetanide Inj 0.25 Mg/Ml Vial 4 Ml IVP 05/09/25 20:59 Not Given BID TEMO Calcium Carbonate 600 mg 04/09/25 09:00 04/13/25 08:07 Calcium Carbonate 600 Mg Tablet PO 05/09/25 08:59 600 mg QDAY TEMO Administration Carvedilol 12.5 mg 04/10/25 08:00 04/13/25 08:05 Carvedilol 12.5 Mg Tablet PO 05/10/25 07:59 Not Given BIDWM TEMO Dextrose 25 ml 04/11/25 12:14 Dextrose 50%-Water Inj 50 Ml Syringe IV 05/11/25 12:13 Q15MIN PRN BG 50-70 responsive npo pt Dextrose 50 ml 04/11/25 12:14 Dextrose 50%-Water Inj 50 Ml Syringe IV 05/11/25 12:13 Q15MIN PRN BG <50 OR BG <70 & pt unresponsive Glucagon 1 mg 04/11/25 12:14 Glucagon Inj 1 Mg Vial IM Q15MIN PRN BG <70, and no IV access Heparin Sodium (Porcine) 5,000 unit 04/09/25 09:00 04/13/25 08:07 Heparin Sod Inj 5000 Unit/Ml Vial SC 04/23/25 08:59 5,000 unit Q12HR TEMO Administration Heparin Sodium (Porcine) 3,800 unit 04/11/25 16:53 04/11/25 17:40 Heparin Sod Inj 1000 Unit/Ml Vial 10 Ml INDWELLCAT 04/25/25 16:52 3,800 unit X1 PRN Administration DIALYSIS Albumin Human 25 gm in 100 mls @ 100 mls/min 04/09/25 15:50 Albuminar-25 Ivpb IV PRN PRN DIALYSIS Insulin Human Lispro 0 unit 04/11/25 17:00 04/13/25 07:27 Insulin Lispro (Admelog) 1 Unit/0.01 Ml Unit SC 05/11/25 16:59 Not Given AC [facility] Protocol Ondansetron HCl 4 mg 04/08/25 21:34 04/08/25 22:27 Ondansetron Inj 2 Mg/Ml Inj 2 Ml IVP 05/08/25 21:33 4 mg Q6H PRN Administration NAUSEA OR VOMITING Protocol Sennosides 1 tab 04/08/25 21:34 Senna Tablet PO 05/08/25 21:33 QDAY PRN constipation Protocol Plan Serena Crowley is a 54F with a pmhx significant for HTN, T2DM, and ESRD who presented to [facility] ED on 04/08 with worsening shortness of breath and anasarca, admitted for acute renal failure and initation of HD. #New ESRD, likely 2/2 diabetic nephropathy and hypertensive nephrosclerosis #Suspicion of new onset CHF #New onset Hemodialysis Presented with creatinine of 8.0, BUN 71, and GFR of 6 and significant bilateral lower extremity edema. 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 Likely 2/2 uncontrolled diabetes exacerbated by fluid overload from possible underlying CHF vs primarily renal failure. No known history of heart failure or cardiac disease, no echo on file. BNP >3,000. Initially attempted to diurese patient, but had to transfuse 2 units of packed RBCs, which resulted in the patient becoming further fluid overloaded, worsening her shortness of breath, leading to requirement for HD. TDC placed 04/11. Received HD: 04/09, 04/10, 04/11 Plan: ? Nephrology consulted, recs appreciated - IV Bumex 2 mg BID ? Strict I&O's, daily weights ? Avoid nephrotoxic medications and renally dose medications ? CTM renal panel ? F/u echocardiogram for evaluation of possible CHF - Discontinue barber #High anion gap metabolic acidosis (resolved) #Uremia (resolved) On repeat renal panel 04/09, the patient had bicarb of 14.6 with anion gap of 19. Patient also had an ABG which showed pH of 7.31. Likely due to acute renal failure, resulting in retention of hydrogen and uremia of 62. Plan: - CTM renal panel - Continue HD per nephrology #Hyperkalemia (resolved) Patient presented with potassium of 5.5, which has not improved over time after hyperkalemia protocol. Patient did receive 2 units of packed RBCs and diuresis. This is likely due to the patient's acute renal failure resulting in accumulation of potassium. Plan: ? Nephrology consulted, recommends hemodialysis - CTM renal panel #Normocytic anemia (resolved) Admission H&H 5.7/18. s/p 2 units of packed RBCs in the ED, which increased her H&H to 9.2/27.9. There is no signs of active bleeding, no hematemesis, denies melana and hematochezia. This is likely secondary to the patient's acute renal failure and the patient's CKD which has now progressed to ESRD. Hgb has remained stable s/p transfusions Plan: ? CTM H&H, transfuse if hemoglobin <7 #[id number] diabetes mellitus Patient on metformin outpatient - Sliding scale insulin - Inpatient blood glucose goal 140-200 - Follow fingerstick AC - Carb consistent diet - Hypoglycemia protocol #Hypertension - Continue Coreg 12.5 mg twice daily and amlodipine 10 mg daily Hospital management: Lines: TDC, peripheral IV Diet: Renal Bowel: Senna GI prophylaxis: None DVT prophylaxis: heparin q12 Disposition: med surg awaiting HD chair placement CODE STATUS: Full code Plan of care discussed with attending Dr. Hancock, and PGY-2 Dr. Julio Pickens DO PGY-1 Internal Medicine
--- NOTE | 2025-04-13 09:45 | PC.SS ---
SS received call from Natalee assistant director of financial aid who explained went to Medical office to apply for Medical for pt. Natalee assistant director of financial aid state she has emailed the Medical Worker from [facility] and will follow up.
[2025-04-13] MEDS: INSULIN LISPRO (AdmeLOG) 1 UNIT/0.01 ML UNIT SC ×2 (11:53→17:00)
[2025-04-13] MEDS: EPOETIN ALFA-EPBX INJ 10,000 UNIT/ML VIAL (NON-ESRD) 10000 UNIT IV (14:36)
[2025-04-13] MEDS: BUMETANIDE INJ 0.25 MG/ML VIAL 4 ML 2 MG IVP (20:23)
--- NOTE | 2025-04-13 23:17 | ESPR_ITS ---
RE: GEOFF MCKEON : 1970 DATE OF SERVICE: 04/13/2025 Briefly, she is a 54-year-old , [place]-speaking only woman with hypertension and diabetes, who presented to the emergency room on 04/08/2025 with increasing shortness of breath and leg swelling. The patient required emergency dialysis treatment on 04/09/2025, which she tolerated very well. Dialysis was done earlier today as well. PHYSICAL EXAMINATION: General: Awake, alert. Vital Signs: Blood pressure of 147/89, heart rate of 71. HEENT: Anicteric sclerae. Normocephalic. Neck: Supple. No JVD. Chest and Lungs: Symmetrical expansion, clear breath sounds. Cardiac: Without murmur. Abdomen: Soft and nontender. Extremities: No edema. CURRENT MEDICATIONS: 1. Acetaminophen. 2. Amlodipine 10 mg daily. 3. Bumetanide 2 mg IV b.i.d. 4. Calcium carbonate. 5. Carvedilol. 6. Epogen 10,000 units subcutaneously x1. ASSESSMENT: 1. New end-stage renal disease secondary to diabetic nephropathy and hypertensive atherosclerosis with volume overload upon presentation. 2. Anemia of chronic disease. 3. Hypertension. 4. Diabetes. 5. Hyperkalemia. 6. Congestive heart failure versus fluid overload. 7. Secondary hyperparathyroidism with mild hypocalcemia. PLAN: The patient had dialysis earlier today. We will continue to try to place her on dialysis unit. Next dialysis will be on Thursday. DT: 22:44:33 TT: 23:14:00 Ref: [id number] - TID: [id number]
[2025-04-14] VITALS (13 sets, daily range): BP systolic 133–158; BP diastolic 66–86; PULSE 68–77; RESP 16–18; TEMP 36.1–36.7; O2SAT 95–100; BMI 28.0
[2025-04-14 05:49] LABS: Basophils # (Auto) 0.0 Thou/mm3 (0.0-0.2); Basophils % (Auto) 0 % (0-2.5); Eosinophils # (Auto) 0.1 Thou/mm3 (0.0-0.5); Eosinophils % (Auto) 1 % (0-10); Hematocrit 27.6 % (36.0-46.0); Hemoglobin 9.1 g/dL (12.0-16.0); Immature Granulocytes Auto 0.01 Thou/mm3 (0.00-0.00); Lymphocytes # (Auto) 1.1 Thou/mm3 (1.0-4.8); Lymphocytes % (Auto) 22 % (10-50); Mean Corpuscular HGB Conc 33.0 g/dl (31.0-37.0); Mean Corpuscular Hemoglobin 28.9 pg (25.0-35.0); Mean Corpuscular Volume 88 fL (80-100); Monocytes # (Auto) 0.4 Thou/mm3 (0.0-0.8); Monocytes % (Auto) 8 % (0-12); Neutrophils # (Auto) 3.3 Thou/mm3 (1.8-7.7); Neutrophils % (Auto) 68 % (37-80); Nucleated Red Blood Cell # 0.00 Thou/mm3 (0.00-0.00); Nucleated Red Blood Cell % 0 /100 WBC (0); Platelet Count 181 Thou/mm3 (140-440); RDW Standard Deviation 41.0 fL (36.4-46.3); Red Blood Count 3.15 Miln/mm3 (4.00-5.20); White Blood Count 4.9 Thou/mm3 (3.6-11.0)
[2025-04-14 06:29] LABS: Albumin, Serum 3.2 gm/dL (3.5-5.0); Anion Gap 10 (7-16); BUN/Creatinine Ratio 7 Ratio (12-20); Blood Urea Nitrogen 23 mg/dL (9-23); Calcium 8.2 mg/dL (8.3-10.6); Calcium (Corrected) 8.8 mg/dL (8.5-10.1); Carbon Dioxide 28.5 mMol/L (20.0-31.0); Chloride 99 mMol/L (98-107); Creatinine (Component) 3.2 mg/dL (0.6-1.3); Estimated Creatinine Clearance 15.0 mL/min (>60); Glucose 109 mg/dL (74-106); Magnesium 1.9 mg/dL (1.6-2.6); Osmolality,Calculated 278 (275-295); Phosphorous 2.3 mg/dL (2.4-5.1); Potassium 4.1 mMol/L (3.4-5.1); Sodium 137 mMol/L (136-145); eGFR 17 See Note
[2025-04-14] MEDS: HEPARIN SOD INJ 5000 UNIT/ML VIAL SC ×2 (09:09→20:18)
[2025-04-14] MEDS: BUMETANIDE INJ 0.25 MG/ML VIAL 4 ML 2 MG IVP (09:09)
[2025-04-14] MEDS: CALCIUM CARBONATE 600 MG TABLET PO (09:09)
--- NOTE | 2025-04-14 09:46 | PC.SS ---
Addendum entered by Qi Olivo 04/14/25 10:46: SS has sent updated facesheet to [facility] using [employer] and faxed. Addendum entered by Qi Olivo 04/14/25 10:15: Ss has sent inquiry to [facility] for dialysis chair time using [employer] and fax. SS has spoken to Megan from [facility] to inform her pt has [facility] and provided her with patient's SS number and is aware inquiry has been sent. Dialysis chair time is pending. Original Note: FABY received phone call from Natalee financial planning analyst who explained pt now has [facility]. SS has informed her to contact pt registration to update patient's information for dialysis chair time.
--- NOTE | 2025-04-14 11:17 | ESPR_ITS ---
<Statement entered by Aneesh Hancock MD - 04/28/25 15:05> I reviewed above note and agree with findings and plans. I have also personally examined the patient with medicine team and went over assessment and plan with medical team including internal sales engineer and resident physician. <Statement entered by Manohar Kim MD - 04/14/25 18:12> Patient was seen and examined at bedside. I agree on the assessment and plan on this note as documented by resident Chente Pickens PGY1. 54-year-old female with past medical history as below, new onset dialysis requiring hemodialysis, patient did receive dialysis yesterday, 2.5 L was removed. Currently stable has no current complaints, patient does have decrease in SpO2 when she sleeps, suspicion of sleep apnea, will recommend sleep study outpatient patient has no current complaints denies any acute problems, Barber was discontinued. Echocardiogram showed mild global hypokinesis, EF 45%, patient does not have any history of heart failure, will consult cardiology for new onset CHF with wall motion abnormality changes, patient on Coreg 12.5 twice daily, will consider starting on GDMT as tolerated further. Will discontinue amlodipine in a.m. and start patient on Entresto/FISH/ARB. Patient has temporary Medi-Jos[employer] [facility] now, pending chair time for discharge, anticipate discharge in the next 24 to 48 hours once established outpatient for dialysis. Case discussed with attending Dr. Santi Kim MD PGY-2 Documentation for date of: 04/14/25 Subjective Subjective Interval history: Overnight events: No acute events overnight. Patient was seen and examined at bedside. AM vitals and labs reviewed. Patient continues to breathe comfortably on room air. No complaints at this time. Patient had dialysis yesterday. Echocardiogram completed and read, which shows normal LV size, mild global hypokinesis, ejection fraction 45%, and pericardial effusion moderate to large. Pending placement due to insurance for dialysis chair time. Review of systems otherwise negative except for what is mentioned above. Exam Vital Signs Temp Pulse Resp BP Pulse Ox O2 Del Method O2 Flow Rate 97.6 F 70 18 152/76 H 98 Room Air 2 04/14/25 08:00 04/14/25 09:09 04/14/25 08:00 04/14/25 09:09 04/14/25 08:00 04/14/25 08:00 04/14/25 06:26 FiO2 30 04/13/25 16:20 Narrative Exam Physical Exam: General: Alert, no acute distress. Skin: Warm, dry, intact, no obvious rash. Right IJ tunneled dialysis catheter noted. Head: Normocephalic, atraumatic. Eye: Normal conjunctiva, PERRL. Cardiovascular: Regular rate and rhythm, no murmur, +S1/S2. Respiratory: Lungs are clear to auscultation, respirations unlabored, no crackles, no wheezing. Gastrointestinal: Soft, nontender, non-distended. No guarding or rebound tenderness. Extremities: No edema, no cyanosis, no clubbing. 2+ radial pulse bilaterally, 2+ pedal pulse bilaterally. Neuro: No focal deficits observed. Conversant, moving all extremities. No overt cerebellar signs/incoordination. Psychiatric: Cooperative, appropriate affect. Objective Labs 04/14/25 05:00 04/14/25 05:00 Labs: Laboratory Results - last 24 hr 04/14/25 05:00 WBC 4.9 RBC 3.15 L Hgb 9.1 L Hct 27.6 L MCV 88 MCH 28.9 MCHC 33.0 RDW Std Deviation 41.0 Plt Count 181 Neut % (Auto) 68 Lymph % (Auto) 22 [place] % (Auto) 8 Eos % (Auto) 1 Baso % (Auto) 0 Neut # (Auto) 3.3 Lymph # (Auto) 1.1 [place] # (Auto) 0.4 Eos # (Auto) 0.1 Baso # (Auto) 0.0 Immature Gran # (Auto) 0.01 H Absolute Nucleated RBC 0.00 Immature Gran % 0 Nucleated RBC % 0 Sodium 137 Potassium 4.1 Chloride 99 Carbon Dioxide 28.5 Anion Gap 10 BUN 23 Creatinine 3.2 H D Estim Creat Clear Calc 15.0 L eGFR 17 L BUN/Creatinine Ratio 7 L Glucose 109 H Calculated Osmolality 278 Calcium 8.2 L Corrected Calcium 8.8 Phosphorus 2.3 L Magnesium 1.9 Albumin 3.2 L ABG Interpretation ABG results: 04/09/25 08:41 ABG pH 7.31 L ABG pCO2 40 ABG pO2 78 L ABG HCO3 20 ABG O2 Saturation 96 ABG Base Excess -6 L Quality Measures Quality Measures VTE prophylaxis Assessment & Plan Assessment Current Active Medications: Generic Name Dose Route Start Last Admin Trade Name Freq PRN Reason Stop Dose Admin Acetaminophen 650 mg 04/08/25 21:29 Acetaminophen 325 Mg Tablet PO 05/08/25 21:28 Q6H PRN Fever >101.5 Acetaminophen 650 mg 04/08/25 21:34 Acetaminophen 325 Mg Tablet PO 05/08/25 21:33 Q6H PRN PAIN SCALE 1-3 (mild Amlodipine Besylate 10 mg 04/10/25 09:00 04/14/25 09:08 Amlodipine Besylate 5 Mg Tablet PO 05/10/25 08:59 10 mg QDAY TEMO Administration Bumetanide 2 mg 04/15/25 09:00 Bumetanide 0.5 Mg Tablet PO 05/15/25 08:59 QDAY TEMO Calcium Carbonate 600 mg 04/09/25 09:00 04/14/25 09:09 Calcium Carbonate 600 Mg Tablet PO 05/09/25 08:59 600 mg QDAY TEMO Administration Carvedilol 12.5 mg 04/10/25 08:00 04/14/25 09:08 Carvedilol 12.5 Mg Tablet PO 05/10/25 07:59 12.5 mg BIDWM TEMO Administration Dextrose 25 ml 04/11/25 12:14 Dextrose 50%-Water Inj 50 Ml Syringe IV 05/11/25 12:13 Q15MIN PRN BG 50-70 responsive npo pt Dextrose 50 ml 04/11/25 12:14 Dextrose 50%-Water Inj 50 Ml Syringe IV 05/11/25 12:13 Q15MIN PRN BG <50 OR BG <70 & pt unresponsive Glucagon 1 mg 04/11/25 12:14 Glucagon Inj 1 Mg Vial IM Q15MIN PRN BG <70, and no IV access Heparin Sodium (Porcine) 5,000 unit 04/09/25 09:00 04/14/25 09:09 Heparin Sod Inj 5000 Unit/Ml Vial SC 04/23/25 08:59 5,000 unit Q12HR TEMO Administration Heparin Sodium (Porcine) 3,800 unit 04/11/25 16:53 04/11/25 17:40 Heparin Sod Inj 1000 Unit/Ml Vial 10 Ml INDWELLCAT 04/25/25 16:52 3,800 unit X1 PRN Administration DIALYSIS Albumin Human 25 gm in 100 mls @ 100 mls/min 04/09/25 15:50 Albuminar-25 Ivpb IV PRN PRN DIALYSIS Insulin Human Lispro 0 unit 04/11/25 17:00 04/14/25 07:39 Insulin Lispro (Admelog) 1 Unit/0.01 Ml Unit SC 05/11/25 16:59 Not Given AC TEMO Protocol Ondansetron HCl 4 mg 04/08/25 21:34 04/08/25 22:27 Ondansetron Inj 2 Mg/Ml Inj 2 Ml IVP 05/08/25 21:33 4 mg Q6H PRN Administration NAUSEA OR VOMITING Protocol Sennosides 1 tab 04/08/25 21:34 Senna Tablet PO 05/08/25 21:33 QDAY PRN constipation Protocol Plan Serena Crowley is a 54F with a pmhx significant for HTN, T2DM, and ESRD who presented to [facility] ED on 04/08 with worsening shortness of breath and anasarca, admitted for acute renal failure and initation of HD. #New ESRD, likely 2/2 diabetic nephropathy and hypertensive nephrosclerosis #New onset Hemodialysis #New onset HFrEF, EF 45% (04/08/2025) #Mild global hypokinesis noted on echocardiogram, suspicion of ischemic cardiomyopathy #Pericardial effusion Presented with creatinine of 8.0, BUN 71, and GFR of 6 and significant bilateral lower extremity edema. 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 Likely 2/2 uncontrolled diabetes exacerbated by fluid overload from possible underlying CHF vs primarily renal failure. Some T wave inversions seen in lead I, aVL on EKG 04/08/2025 No known history of heart failure or cardiac disease, no echo on file. BNP >3,000. Initially attempted to diurese patient, but had to transfuse 2 units of packed RBCs, which resulted in the patient becoming further fluid overloaded, worsening her shortness of breath, leading to requirement for HD. TDC placed 04/11. Received HD: 04/09, 04/10, 04/11, 04/13 Plan: ? Nephrology consulted, recs appreciated - IV Bumex 2 mg BID ? Strict I&O's, daily weights ? Avoid nephrotoxic medications and renally dose medications ? CTM renal panel ? Echocardiogram 04/08/2025 showed normal LV size, mild global hypokinesis, ejection fraction 45%, and pericardial effusion that is moderate to large size ? Patient to follow-up with outpatient cardiology for further heart failure workup and management - Consulted cardiology for new onset congestive heart failure with echo changes of global hypokinesis - Patient is on Coreg 12.5 twice daily, will hold amlodipine for now, will consider starting patient on ARNI/FISH/ARB in a.m. - Suspicion of ischemic cardiomyopathy, patient will likely need a cardiac catheterization at some point. Daily aspirin 81 mg. - Discontinue barber #High anion gap metabolic acidosis (resolved) #Uremia (resolved) On repeat renal panel 04/09, the patient had bicarb of 14.6 with anion gap of 19. Patient also had an ABG which showed pH of 7.31. Likely due to acute renal failure, resulting in retention of hydrogen and uremia of 62. Plan: - CTM renal panel - Continue HD per nephrology #Hyperkalemia (resolved) Patient presented with potassium of 5.5, which has not improved over time after hyperkalemia protocol. Patient did receive 2 units of packed RBCs and diuresis. This is likely due to the patient's acute renal failure resulting in accumulation of potassium. Plan: ? Nephrology consulted, recommends hemodialysis - CTM renal panel #Normocytic anemia (resolved) Admission H&H 5.7/18. s/p 2 units of packed RBCs in the ED, which increased her H&H to 9.2/27.9. There is no signs of active bleeding, no hematemesis, denies melana and hematochezia. This is likely secondary to the patient's acute renal failure and the patient's CKD which has now progressed to ESRD. Hgb has remained stable s/p transfusions Plan: ? CTM H&H, transfuse if hemoglobin <7 #Joi-[id number] diabetes mellitus Patient on metformin outpatient. Hemoglobin A1c 6.4% 04/12/25. - Sliding scale insulin - Inpatient blood glucose goal 140-200 - Follow fingerstick AC - Carb consistent diet - Hypoglycemia protocol #Hypertension - Continue Coreg 12.5 mg twice daily and amlodipine 10 mg daily Hospital management: Lines: TDC, peripheral IV Diet: Renal Bowel: Senna GI prophylaxis: None DVT prophylaxis: heparin q12 Disposition: med surg awaiting HD chair placement CODE STATUS: Full code Plan of care discussed with attending Dr. Hancock, and PGY-2 Dr. Julio Pickens DO PGY-1 Internal Medicine
[2025-04-14] MEDS: INSULIN LISPRO (AdmeLOG) 1 UNIT/0.01 ML UNIT SC (11:55)
--- NOTE | 2025-04-14 12:55 | PC.NURSE ---
D/C'd Dr. Peter's order for PPD as it was COMPLETED on 04/12/2025.
[2025-04-14] MEDS: NAPH,KPH MBDB 1 PACKET (1.5 GM) PO (13:00)
--- NOTE | 2025-04-14 15:39 | PC.SS ---
SS attempted to contact [facility] but was unsuccessful. SS left voicemail. Dialysis chair time is pending.
--- NOTE | 2025-04-14 16:13 | PC.SS ---
SS spoke to bedside nurseMikki about testing requiring O2 testing for home O2.
--- NOTE | 2025-04-14 21:43 | ESCONSULT_ITS ---
<Statement entered by Daksha Prasda MD - 04/16/25 19:09> I personally evaluated the patient examined history of acute renal failure chronic kidney disease has a large pericardial effusion echo has shortness of breath could be symptom of a large pericardial effusion will get another echocardiogram tomorrow if the persistent large pericardial effusion even after dialysis and if she is short of breath will recommend pericardiocentesis possibly on Thursday I agree with the treatment plan recommendation as documented by HPI Data of Consult Requesting Physician: Sharon Watts MD Admitting Provider: Sharon Watts MD Attending Provider: Sharon Watts MD Primary Care Provider: BERNIE Hunt Consult Narrative History of present illness: 54-year-old female with a past medical history of hypertension, CKD, type 2 diabetes mellitus who presented to the ED on 04/08/2025 with worsening shortness of breath, bilateral lower extremity swelling and abdominal pain for approximately 3 months. Symptoms have slowly gotten worse with increased swelling and dyspnea over the past month. She denies orthopnea. Upon presentation to the ED she reported dizziness, being easily fatigued, and an episode of vomiting the morning of. She has also had a chronic dry cough for the past 2 to 3 weeks. She was previously followed by marker machine attendant but stopped over a year ago due to insurance. She has never had an echo and has no known history of heart failure or cardiovascular disease. Cardiology was consulted for evaluation of the patient's pericardial effusion that was revealed on echocardiogram. ED Course: Vitals were notable for hypertension (BP up to 198/105) and tachycardia (HR 100?118). O2 saturation 94% on room air improved with 3L NC. Labs showed Hgb 5.7, K 6.2, creatinine 8.0, BUN 71, Ca 7.4, BNP 3280, and troponin 0.055. CXR shows chronic CHF pattern with marked cardiomegaly (possible pericardial effusion). Gallbladder US negative for acute pathology, small right pleural effusion noted. EKG: sinus rhythm with short ID, possible old anterior [place], moderate T wave abnormality. ED management included transfusion of 2 units PRBC, hyperkalemia protocol (kayexalate, sodium bicarb), IV calcium gluconate 1g, start oral calcium carbonate 600mg, IV Lasix 40mg, amlodipine 10mg PO, and PRN IV labetalol. Renal diet initiated. Renal ultrasound completed, read pending. History: Past Medical History: Hypertension Chronic kidney disease (etiology per PCP: diabetes) Type 2 diabetes mellitus Past Surgical History: None reported Medications (home): Metformin (held) Hydrochlorothiazide 25mg daily (held) Allergies: NKDA Social History: No tobacco, alcohol, or illicit drug use Lives with family Italian-speaking only Family History: Not contributory per patient Pulm medications: Hydrochlorothiazide 25 mg p.o. daily Metformin 1000 mg p.o. twice daily cc:: cc: Sharon Watts MD Review of Systems Review of Systems Narrative Review of Systems: Review of Systems: -General: Denies fevers, chills. -HEENT: Denies headache, congestion, or sore throat. -Cardiac: Denies chest pain or palpitations. -Pulmonary: Patient endorses shortness of breath and a dry cough for the last 2 to 3 weeks. -GI: Denies nausea, vomiting, diarrhea, constipation, melena, or hematochezia. -: Denies dysuria, hematuria, frequency, or urgency. -MSK: Patient admits to bilateral leg swelling. -Neuro: Denies weakness, numbness, vision changes, or speech difficulty. Exam Vital Signs Temp Pulse Resp BP Pulse Ox O2 Del Method O2 Flow Rate 98.0 F 71 16 136/66 H 96 Room Air 2 04/14/25 15:52 04/14/25 18:17 04/14/25 18:17 04/14/25 17:16 04/14/25 18:17 04/14/25 15:52 04/14/25 06:26 FiO2 30 04/13/25 16:20 Narrative Exam General: Overweight lady, increased work of breathing. Neurologic: GCS 15. Alert and oriented x3, no gross neurological deficit, and patient able to move all 4 extremities. HEENT: Right IJ tunneled dialysis catheter. Normocephalic, atraumatic, mucous membranes moist. Pupils reactive to light. Heart: Regular rate and rhythm, normal S1 and S2, no murmurs. Lungs: Clear to auscultation bilaterally with no wheezing or crackles. Abdomen: Soft, nondistended, nontender, positive bowel sounds. No guarding or rebound tenderness. Extremities: No edema. 2+ radial and dorsalis pedis pulses bilaterally. Skin: Warm. Dry. No rash or ecchymoses. Results Labs 04/14/25 05:00 04/14/25 05:00 Labs: Short CBC 04/14/25 Range/Units 05:00 WBC 4.9 (3.6-11.0) Thou/mm3 Hgb 9.1 L (12.0-16.0) g/dL Hct 27.6 L (36.0-46.0) % Plt Count 181 (140-440) Thou/mm3 BMP 04/14/25 05:00 Sodium 137 Potassium 4.1 Chloride 99 Carbon Dioxide 28.5 BUN 23 Creatinine 3.2 H D Glucose 109 H Calcium 8.2 L Liver Function 04/14/25 Range/Units 05:00 Albumin 3.2 L (3.5-5.0) gm/dL ABG Interpretation ABG results: 04/09/25 08:41 ABG pH 7.31 L ABG pCO2 40 ABG pO2 78 L ABG HCO3 20 ABG O2 Saturation 96 ABG Base Excess -6 L Quality Measures Quality Measures VTE prophylaxis Medications Home Medications and Allergies Home Medications ?Medication ?Instructions ?Recorded ?Confirmed ?Type hydrochlorothiazide 25 mg tablet 25 mg PO QAM 04/08/25 04/08/25 History metformin 1,000 mg tablet 1,000 mg PO BID 04/08/2505/25 History Allergies Allergy/AdvReac Type Severity Reaction Status Date / Time No Known Allergies Allergy Verified 04/08/25 12:44 Visit Medications Acetaminophen (Acetaminophen 325 Mg Tablet) 650 mg PO Q6H PRN PRN Reason: Fever >101.5 Stop: 05/08/25 21:28 Acetaminophen (Acetaminophen 325 Mg Tablet) 650 mg PO Q6H PRN PRN Reason: PAIN SCALE 1-3 (mild Stop: 05/08/25 21:33 Amlodipine Besylate (Amlodipine Besylate 5 Mg Tablet) 10 mg PO QDAY [facility] Stop: 05/10/25 08:59 Last Admin: 04/14/25 09:08 Dose: 10 mg Bumetanide (Bumetanide 0.5 Mg Tablet) 2 mg PO QDAY [facility] Stop: 05/15/25 08:59 Calcium Carbonate (Calcium Carbonate 600 Mg Tablet) 600 mg PO QDAY [facility] Stop: 05/09/25 08:59 Last Admin: 04/14/25 09:09 Dose: 600 mg Carvedilol (Carvedilol 12.5 Mg Tablet) 12.5 mg PO BIDWM TEMO Stop: 05/10/25 07:59 Last Admin: 04/14/25 17:16 Dose: 12.5 mg Dextrose (Dextrose 50%-Water Inj 50 Ml Syringe) 25 ml IV Q15MIN PRN PRN Reason: BG 50-70 responsive npo pt Stop: 05/11/25 12:13 Dextrose (Dextrose 50%-Water Inj 50 Ml Syringe) 50 ml IV Q15MIN PRN PRN Reason: BG <50 OR BG <70 & pt unresponsive Stop: 05/11/25 12:13 Glucagon (Glucagon Inj 1 Mg Vial) 1 mg IM Q15MIN PRN PRN Reason: BG <70, and no IV access Heparin Sodium (Porcine) (Heparin Sod Inj 5000 Unit/Ml Vial) 5,000 unit SC Q12HR TEMO Stop: 04/23/25 08:59 Last Admin: 04/14/25 20:18 Dose: 5,000 unit Heparin Sodium (Porcine) (Heparin Sod Inj 1000 Unit/Ml Vial 10 Ml) 3,800 unit INDWELLCAT X1 PRN PRN Reason: DIALYSIS Stop: 04/25/25 16:52 Last Admin: 04/11/25 17:40 Dose: 3,800 unit Albumin Human (Albuminar-25 Ivpb) 25 gm in 100 mls @ 100 mls/min IV PRN PRN PRN Reason: DIALYSIS Insulin Human Lispro (Insulin Lispro (Admelog) 1 Unit/0.01 Ml Unit) 0 unit SC [facility]; Protocol Stop: 05/11/25 16:59 Last Admin: 04/14/25 16:40 Dose: Not Given Ondansetron HCl (Ondansetron Inj 2 Mg/Ml Inj 2 Ml) 4 mg IVP Q6H PRN; Protocol PRN Reason: NAUSEA OR VOMITING Stop: 05/08/25 21:33 Last Admin: 04/08/25 22:27 Dose: 4 mg Sennosides (Senna Tablet) 1 tab PO QDAY PRN; Protocol PRN Reason: constipation Stop: 05/08/25 21:33 Discontinued Medications Albuterol (Albuterol Rt 2.5 Mg/3 Ml Nebu) 5 mg INH X1 ONE Stop: 04/08/25 19:11 Last Admin: 04/08/25 19:49 Dose: 5 mg Amlodipine Besylate (Amlodipine Besylate 5 Mg Tablet) 10 mg PO X1 ONE Stop: 04/09/25 18:01 Last Admin: 04/09/25 18:33 Dose: 10 mg Aspirin (Aspirin Ec 81 Mg Tabec) 81 mg PO QDAY TEMO Stop: 05/15/25 08:59 Bumetanide (Bumetanide Inj 0.25 Mg/Ml Vial 4 Ml) 2 mg IVP X1 ONE Stop: 04/09/25 08:06 Last Admin: 04/09/25 08:24 Dose: 2 mg Bumetanide (Bumetanide Inj 0.25 Mg/Ml Vial 4 Ml) 2 mg IVP BID TEMO Stop: 05/09/25 20:59 Last Admin: 04/14/25 09:09 Dose: 2 mg Carvedilol (Carvedilol 12.5 Mg Tablet) 12.5 mg PO X1 ONE Stop: 04/09/25 18:00 Last Admin: 04/09/25 18:33 Dose: 12.5 mg Dextrose (Dextrose 50%-Water Inj 50 Ml Syringe) 25 ml IV Q15MIN PRN PRN Reason: BG 50-70 responsive npo pt Stop: 05/08/25 19:09 Dextrose (Dextrose 50%-Water Inj 50 Ml Syringe) 50 ml IV Q15MIN PRN PRN Reason: BG <50 OR BG <70 & pt unresponsive Stop: 05/08/25 19:09 Dextrose (Dextrose 50%-Water Inj 50 Ml Syringe) 50 ml IVP X1 ONE Stop: 04/08/25 19:47 Last Admin: 04/08/25 19:50 Dose: 50 ml Epoetin Adria (Epoetin Adria-Epbx Inj 10,000 Unit/Ml Vial (Non-Esrd)) 10,000 unit SC X1 ONE Stop: 04/10/25 10:50 Last Admin: 04/10/25 12:01 Dose: 10,000 unit Epoetin Adria (Epoetin Adria-Epbx Inj 10,000 Unit/Ml Vial (Non-Esrd)) 10,000 unit IV X1 ONE Stop: 04/13/25 15:01 Last Admin: 04/13/25 14:36 Dose: 10,000 unit Fentanyl Citrate (Fentanyl Cit Inj 50 Mcg/Ml Amp 2ml) 50 mcg IVP X1 ONE Stop: 04/11/25 12:59 Last Admin: 04/11/25 12:58 Dose: 50 mcg Furosemide (Furosemide Inj 10 Mg/Ml 4ml Vial) 40 mg IVP QDAY [facility] Stop: 05/09/25 08:59 Furosemide (Furosemide Inj 10 Mg/Ml 4ml Vial) 40 mg IVP X1 ONE Stop: 04/08/25 21:14 Last Admin: 04/08/25 21:51 Dose: 40 mg Furosemide (Furosemide Inj 10 Mg/Ml 4ml Vial) 40 mg IVP BID TEMO Stop: 05/09/25 08:59 Last Admin: 04/09/25 07:49 Dose: 40 mg Glucagon (Glucagon Inj 1 Mg Vial) 1 mg IM Q15MIN PRN PRN Reason: BG <70, and no IV access Heparin Sodium (Beef Lung) (Heparin Sod Lock Syr 100 Unit/Ml) 500 unit INTRACATH X1 ONE Stop: 04/11/25 12:31 Last Admin: 04/11/25 12:35 Dose: 500 unit Heparin Sodium (Porcine) (Heparin Sod Inj 1000 Unit/Ml Vial 10 Ml) 2,600 unit INDWELLCAT PRN PRN PRN Reason: DIALYSIS Stop: 04/23/25 14:03 Last Admin: 04/10/25 10:39 Dose: 2,600 unit Heparin Sodium (Porcine) (Heparin Sod Inj 5000 Unit/Ml Vial 10 Ml) 3,800 unit INTRACATH X1 ONE Stop: 04/11/25 13:12 Last Admin: 04/11/25 13:36 Dose: 3,800 unit Hydralazine HCl (Hydralazine Inj 20 Mg/Ml Vial) 20 mg IVP X1 ONE Stop: 04/08/25 19:48 Last Admin: 04/08/25 20:00 Dose: 20 mg Calcium Gluconate/Sodium Chloride (Calcium Gluc/Ns 1000mg Ivpb) 1,000 mg in 50 mls @ 50 mls/hr IV X1 ONE Stop: 04/08/25 20:11 Last Infusion: 04/08/25 21:37 Dose: Infused Magnesium Sulfate (Magnesium Sulfate Ivpb) 4 gm in 50 mls @ 12.5 mls/hr IV X1 ONE Stop: 04/11/25 12:23 Last Infusion: 04/11/25 13:09 Dose: Infused Insulin Human Regular (Insulin Hum Regular 1 Unit/0.01 Ml (Per Unit)) 5 unit IV X1 ONE Stop: 04/08/25 19:11 Last Admin: 04/08/25 19:51 Dose: 5 unit Lidocaine HCl (Lidocaine Inj Pf 1% 30 Ml Vial) 8 ml INFL X1 ONE Stop: 04/11/25 12:31 Last Admin: 04/11/25 12:30 Dose: 8 ml Potassium Phos/Sodium Phos (Naph,[facility] 1 Packet (1.5 Gm)) 1 packet PO X1 ONE Stop: 04/14/25 10:36 Last Admin: 04/14/25 13:00 Dose: 1 packet Sodium Bicarbonate (Sodium Bicarb Inj 8.4% 1 Meq/Ml 50 Ml Vial) 50 meq IV X1 ONE Stop: 04/08/25 19:52 Last Admin: 04/08/25 20:00 Dose: 50 meq Sodium Polystyrene Sulfonate (Sod Polystyrene Sulfon Susp 15 Gm/60 Ml Btl) 30 gm PO X1 ONE Stop: 04/08/25 19:11 Last Admin: 04/08/25 19:51 Dose: 30 gm Tuberculin PPD (Tuberculin Ppd Inj 5 Unit/0.1 Ml Dose) 5 unit ID X1 ONE Stop: 04/10/25 08:55 Last Admin: 04/10/25 11:35 Dose: 5 unit Assessment & Plan Plan 54-year-old female with a past medical history of hypertension, CKD, type 2 diabetes mellitus who presented to the ED on 04/08/2025 with worsening shortness of breath, bilateral lower extremity swelling and abdominal pain for approximately 3 months. Cardiology was consulted for management of the patient's pericardial effusion. #CHF #Shortness of breath #Pericardial effusion - BNP was over 3000 on presentation, the patient was initially attempted on diuresis however 2 units of PRBCs were transfused resulting in further fluid overloading which worsened the patient's shortness of breath -Shortness of breath may be due to several factors, consider congestive heart failure in combination with pericardial effusion and fluid overload - NSTEMI evidenced by elevated tropes may suggest an ischemic contribution to heart failure - Echocardiogram on 04/08/2025 showed mild global hypokinesis of the left ventricle with an EF of 45%, there was mild mitral regurg and tricuspid regurg, finally there was a moderate to large pericardial effusion with no evidence of tamponade with a volume of fluid estimated to be 1 L - There is mild evidence of hemodynamically significant cardiac tamponade at this time however the large pericardial effusion is likely contributing to dyspnea through impaired ventricular filling in combination with CHF, fluid overload, and ischemia as contributing factors Plan: - Cardiology plans for pericardiocentesis on Thursday04/17/2025 for diagnosis and therapeutic benefit, expect improvement in dyspnea through relief of impaired ventricular filling #New ESRD, likely 2/2 diabetic nephropathy and hypertensive nephrosclerosis #New onset Hemodialysis #New onset HFrEF, EF 45% (04/08/2025) #High anion gap metabolic acidosis (resolved) #Uremia (resolved) #Hyperkalemia (resolved) #Normocytic anemia (resolved) #[id number] diabetes mellitus #Hypertension The remainder of the patient's problems will be managed per the patient's primary team. Patient was seen and discussed with my attending physician Dr. Prasad. Manny Evans DO PGY-1.
--- NOTE | 2025-04-14 22:27 | ESPR_ITS ---
RE: GEOFF MCKEON : 1970 DATE OF SERVICE: 04/14/2025 Briefly, she is a 54-year-old [place]ian-speaking only woman with hypertension and diabetes, who presented to the emergency room on 04/08/2025 with increasing shortness of breath and leg swelling. The patient required emergency dialysis treatment on 04/09/2025. She was last dialyzed yesterday. She is still waiting for oxygen at home as the patient needs home O2. PHYSICAL EXAMINATION: General: She is awake, alert, oriented. Vital Signs: Blood pressure of 136/66. Heart rate of 72. HEENT: Anicteric sclerae. Normocephalic. Neck: Supple. No JVD. Chest and Lungs: Symmetric expansion, clear breath sounds. Cardiac: Without murmur. Abdomen: Soft and nontender. Extremities. No edema. LABORATORY DATA: Hemoglobin 9.1, WBC 4800, platelet count 181,000. Sodium 137, potassium 4.1, chloride 99, CO2 of 28.5, glucose 109. ASSESSMENT: 1. New end-stage renal disease, secondary to diabetic nephropathy and hypertensive nephrosclerosis with volume overload upon presentation, now euvolemic. 2. Anemia of chronic kidney disease. 3. Hypertension. 4. Diabetes. 5. Hyperkalemia, now resolved. 6. Congestive heart failure versus fluid overload. 7. Secondary hyperparathyroidism with mild hypocalcemia PLAN: The patient will dialyze again tomorrow. We are still waiting for oxygen at home so she can be discharged. DT: 21:31:57 TT: 21:53:00 Ref: [id number] - TID: [id number] MTDD
[2025-04-15] VITALS (29 sets, daily range): BP systolic 115–171; BP diastolic 67–99; PULSE 64–82; RESP 15–18; TEMP 36.2–37.1; O2SAT 95–100
[2025-04-15 05:45] LABS: Basophils # (Auto) 0.0 Thou/mm3 (0.0-0.2); Basophils % (Auto) 0 % (0-2.5); Eosinophils # (Auto) 0.1 Thou/mm3 (0.0-0.5); Eosinophils % (Auto) 2 % (0-10); Hematocrit 25.4 % (36.0-46.0); Immature Granulocytes Auto 0.02 Thou/mm3 (0.00-0.00); Lymphocytes # (Auto) 1.3 Thou/mm3 (1.0-4.8); Lymphocytes % (Auto) 23 % (10-50); Mean Corpuscular HGB Conc 32.3 g/dl (31.0-37.0); Mean Corpuscular Hemoglobin 28.7 pg (25.0-35.0); Mean Corpuscular Volume 89 fL (80-100); Monocytes # (Auto) 0.5 Thou/mm3 (0.0-0.8); Monocytes % (Auto) 9 % (0-12); Neutrophils # (Auto) 3.6 Thou/mm3 (1.8-7.7); Neutrophils % (Auto) 66 % (37-80); Nucleated Red Blood Cell # 0.00 Thou/mm3 (0.00-0.00); Nucleated Red Blood Cell % 0 /100 WBC (0); Platelet Count 194 Thou/mm3 (140-440); RDW Standard Deviation 41.0 fL (36.4-46.3); Red Blood Count 2.86 Miln/mm3 (4.00-5.20); White Blood Count 5.4 Thou/mm3 (3.6-11.0)
[2025-04-15 05:52] LABS: Hemoglobin 8.2 g/dL (12.0-16.0)
[2025-04-15 06:12] LABS: Albumin, Serum 3.1 gm/dL (3.5-5.0); Anion Gap 10 (7-16); BUN/Creatinine Ratio 10 Ratio (12-20); Blood Urea Nitrogen 43 mg/dL (9-23); Calcium 8.1 mg/dL (8.3-10.6); Calcium (Corrected) 8.8 mg/dL (8.5-10.1); Carbon Dioxide 27.5 mMol/L (20.0-31.0); Chloride 97 mMol/L (98-107); Creatinine (Component) 4.3 mg/dL (0.6-1.3); Estimated Creatinine Clearance 11.2 mL/min (>60); Glucose 135 mg/dL (74-106); Magnesium 1.5 mg/dL (1.6-2.6); Osmolality,Calculated 281 (275-295); Phosphorous 3.0 mg/dL (2.4-5.1); Potassium 4.6 mMol/L (3.4-5.1); Sodium 134 mMol/L (136-145); eGFR 12 See Note
--- NOTE | 2025-04-15 07:46 | PC.NURSE ---
Patient to dialysis via bed, stable condition.
--- NOTE | 2025-04-15 08:59 | PC.SS ---
SS attempted to contact CAROLE Alejandra [phone] to check on chair time, went to . Left message with call back info.
[2025-04-15] MEDS: HEPARIN SOD INJ 1000 UNIT/ML VIAL 10 ML 3800 UNIT INDWELLCAT (11:05)
[2025-04-15] MEDS: LOSARTAN POTASSIUM 25 MG TABLET PO (11:31)
[2025-04-15] MEDS: CALCIUM CARBONATE 600 MG TABLET PO (11:31)
[2025-04-15] MEDS: BUMETANIDE 0.5 MG TABLET 2 MG PO (11:31)
--- NOTE | 2025-04-15 11:34 | XR_ITS ---
Single view Technique one AP portable semiupright chest single view Date and time: April 15, 2025, 11:55 AM, comparison April 09, 2025 Indications: Shortness of breath this week. Findings: Marked enlargement cardiac contour. Moderate right and large left pleural effusions. Vascular congestion. Right internal jugular dialysis catheter satisfactory position Impression: Marked enlargement cardiac contour, differential would include pericardial effusion Significant vascular congestion. Large left pleural effusion
[2025-04-15] MEDS: INSULIN LISPRO (AdmeLOG) 1 UNIT/0.01 ML UNIT SC ×2 (11:48→17:12)
[2025-04-15] MEDS: Magnesium Sulfate 4 GM Ivpb 4 GM/50 ML BAG IV (12:02)
--- NOTE | 2025-04-15 15:01 | ESPR_ITS ---
<Statement entered by Manohar Kim MD - 04/15/25 18:02> Patient was seen and examined at bedside. I agree on the assessment and plan on this note as documented by resident Kaia Courtney DO PGY1. Patient seen and examined at bedside, currently stable on 2 L nasal cannula, repeat chest x-ray today shows large left pleural effusion, patient also does have pericardial effusion for which cardiology is on board, plan for pericardiocentesis on 04/17/2025, increased Coreg dose to 25 mg twice daily, started on losartan 25 mg daily?GDMT. Cardiology following, disposition MedSurg pending pericardiocentesis. Case discussed with attending Dr. Terrance Kim MD PGY-2 Documentation for date of: 04/15/25 Subjective Subjective Interval history: No acute overnight events. Patient seen and examined at bedside in dialysis unit. Patient currently denies any chest pain, shortness of breath, abdominal pain or urinary symptoms. Reports that she is voiding well. Feeling good in general. HD today. Started Coreg 25 mg twice daily and losartan 25 mg daily. Per cardiology may not need GDMT as anticipate improvement in HFrEF following pericardiocentesis which is planned on Thursday. Repeat chest x-ray done showing large left pleural effusion likely transudative from pericardial effusion. Possible thoracentesis tomorrow. Continue Bumex p.o. 2 mg daily. Exam Vital Signs Temp Pulse Resp BP Pulse Ox O2 Del Method O2 Flow Rate 97.9 F 71 18 164/84 H 100 Nasal Cannula 2 04/15/25 12:00 04/15/25 12:13 04/15/25 12:00 04/15/25 12:00 04/15/25 12:00 04/15/25 12:04/15/25 12:00 FiO2 30 04/15/25 12:00 Narrative Exam GENERAL: AOx3, no acute distress HEENT: NC/AT, mucous membranes moist, bilateral sclera anicteric R IJ TDC in place CARDIOVASCULAR: regular rate and rhythm, S1/S2 present, no murmurs appreciated PULMONARY: +diminished breath sounds at L lung base, R CTA, no rales/rhonchi/wheezes ABDOMINAL: soft, non-tender, non-distended, no rebound/guarding, bowel sounds present EXTREMITIES: trace BLE edema SKIN: warm and dry, intact, no rashes NEURO: CN II-XII grossly intact, no focal deficits, alert, following commands Objective Labs 04/15/25 05:08 04/15/25 05:08 Labs: Laboratory Results - last 24 hr 04/15/25 05:08 WBC 5.4 RBC 2.86 L Hgb 8.2 L Hct 25.4 L MCV 89 MCH 28.7 MCHC 32.3 RDW Std Deviation 41.0 Plt Count 194 Neut % (Auto) 66 Lymph % (Auto) 23 [place] % (Auto) 9 Eos % (Auto) 2 Baso % (Auto) 0 Neut # (Auto) 3.6 Lymph # (Auto) 1.3 [place] # (Auto) 0.5 Eos # (Auto) 0.1 Baso # (Auto) 0.0 Immature Gran # (Auto) 0.02 H Absolute Nucleated RBC 0.00 Immature Gran % 0 Nucleated RBC % 0 Sodium 134 L Potassium 4.6 D Chloride 97 L Carbon Dioxide 27.5 Anion Gap 10 BUN 43 H Creatinine 4.3 H* D Estim Creat Clear Calc 11.2 L eGFR 12 L* BUN/Creatinine Ratio 10 L Glucose 135 H Calculated Osmolality 281 Calcium 8.1 L Corrected Calcium 8.8 Phosphorus 3.0 Magnesium 1.5 L Albumin 3.1 L ABG Interpretation ABG results: 04/09/25 08:41 ABG pH 7.31 L ABG pCO2 40 ABG pO2 78 L ABG HCO3 20 ABG O2 Saturation 96 ABG Base Excess -6 L Quality Measures Quality Measures VTE prophylaxis Assessment & Plan Assessment Current Active Medications: Generic Name Dose Route Start Last Admin Trade Name Lonnie PRN Reason Stop Dose Admin Acetaminophen 650 mg 04/08/25 21:29 Acetaminophen 325 Mg Tablet PO 05/08/25 21:28 Q6H PRN Fever >101.5 Acetaminophen 650 mg 04/08/25 21:34 Acetaminophen 325 Mg Tablet PO 05/08/25 21:33 Q6H PRN PAIN SCALE 1-3 (mild Bumetanide 2 mg 04/15/25 09:00 04/15/25 11:31 Bumetanide 0.5 Mg Tablet PO 05/15/25 08:59 2 mg QDAY TEMO Administration Calcium Carbonate 600 mg 04/09/25 09:00 04/15/25 11:31 Calcium Carbonate 600 Mg Tablet PO 05/09/25 08:59 600 mg QDAY TEMO Administration Carvedilol 25 mg 04/15/25 17:30 Carvedilol 12.5 Mg Tablet PO 05/15/25 17:29 BIDWM TEMO Dextrose 25 ml 04/11/25 12:14 Dextrose 50%-Water Inj 50 Ml Syringe IV 05/11/25 12:13 Q15MIN PRN BG 50-70 responsive npo pt Dextrose 50 ml 04/11/25 12:14 Dextrose 50%-Water Inj 50 Ml Syringe IV 05/11/25 12:13 Q15MIN PRN BG <50 OR BG <70 & pt unresponsive Glucagon 1 mg 04/11/25 12:14 Glucagon Inj 1 Mg Vial IM Q15MIN PRN BG <70, and no IV access Heparin Sodium (Porcine) 5,000 unit 04/09/25 09:00 04/15/25 11:08 Heparin Sod Inj 5000 Unit/Ml Vial SC 04/23/25 08:59 Not Given Q12HR TEMO Heparin Sodium (Porcine) 3,800 unit 04/11/25 16:53 04/15/25 11:05 Heparin Sod Inj 1000 Unit/Ml Vial 10 Ml INDWELLCAT 04/25/25 16:52 3,800 unit X1 PRN Administration DIALYSIS Albumin Human 25 gm in 100 mls @ 100 mls/min 04/09/25 15:50 Albuminar-25 Ivpb IV PRN PRN DIALYSIS Insulin Human Lispro 0 unit 04/11/25 17:00 04/15/25 11:48 Insulin Lispro (Admelog) 1 Unit/0.01 Ml Unit SC 05/11/25 16:59 1 unit AC TEMO Administration Protocol Losartan Potassium 25 mg 04/15/25 11:30 04/15/25 11:31 Losartan Potassium 25 Mg Tablet PO 05/15/25 11:29 25 mg QDAY TEMO Administration Ondansetron HCl 4 mg 04/08/25 21:34 04/08/25 22:27 Ondansetron Inj 2 Mg/Ml Inj 2 Ml IVP 05/08/25 21:33 4 mg Q6H PRN Administration NAUSEA OR VOMITING Protocol Sennosides 1 tab 04/08/25 21:34 Senna Tablet PO 05/08/25 21:33 QDAY PRN constipation Protocol Plan Serena Crowley is a 54F with a pmhx significant for HTN, T2DM, and ESRD who presented to [facility] ED on 04/08 with worsening shortness of breath and anasarca, admitted for acute on chronic renal failure and initation of HD. #New onset HFrEF, EF 45% (04/08/2025) #Mild global hypokinesis noted on echocardiogram, suspicion of ischemic cardiomyopathy #Pericardial effusion #L pleural effusion NYHA Class I On admission EKG, some T wave inversions seen in lead I, aVL and BNP >3000 Likely cardiorenal type II vs type IV iso CKD and new ESRD Echocardiogram 04/08/2025 showed normal LV size, mild global hypokinesis, ejection fraction 45%, and pericardial effusion that is moderate to large size Repeat CXR shows marked enlargement of the cardiac contour, significant vascular congestion and large left pleural effusion Pleural effusion likely transudative 2/2 pericardial effusion Plan: ? Patient to follow-up with outpatient cardiology for further heart failure workup and management - Consulted cardiology for new onset congestive heart failure with echo changes of global hypokinesis - Increase carvedilol 25 twice daily - Hold amlodipine for now - Start Losartan 25 mg QD - Suspicion of ischemic cardiomyopathy, patient will likely need a cardiac catheterization at some point - Plan for pericardiocentesis 04/17 - Possible thoracentesis tomorrow #New ESRD, likely 2/2 diabetic nephropathy and hypertensive nephrosclerosis likely DEBBY on CKD #New onset Hemodialysis Presented with creatinine of 8.0, BUN 71, and GFR of 6 and significant bilateral lower extremity edema. 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 Likely 2/2 uncontrolled diabetes exacerbated by fluid overload from possible underlying CHF vs primarily renal failure. No known history of heart failure or cardiac disease, no echo on file. BNP >3,000. Initially attempted to diurese patient, but had to transfuse 2 units of packed RBCs, which resulted in the patient becoming further fluid overloaded, worsening her shortness of breath, leading to requirement for HD. TDC placed 04/11. Received HD: 04/09, 04/10, 04/11, 04/13, 04/14 Plan: ? Nephrology consulted, recs appreciated - HD today - PO Bumex 2 mg QD ? Strict I&O's, daily weights ? Avoid nephrotoxic medications and renally dose medications ? CTM renal panel #High anion gap metabolic acidosis (resolved) #Uremia (resolved) On repeat renal panel 04/09, the patient had bicarb of 14.6 with anion gap of 19. Patient also had an ABG which showed pH of 7.31. Likely due to acute renal failure, resulting in retention of hydrogen and uremia of 62. Plan: - CTM renal panel - Continue HD per nephrology #Hyperkalemia (resolved) Patient presented with potassium of 5.5, which has not improved over time after hyperkalemia protocol. Patient did receive 2 units of packed RBCs and diuresis. This is likely due to the patient's acute renal failure resulting in accumulation of potassium. Plan: ? Nephrology consulted, managed by HD - CTM renal panel #Normocytic anemia Admission H&H 5.7/18. s/p 2 units of packed RBCs in the ED, which increased her H&H to 9.2/27.9. There is no signs of active bleeding, no hematemesis, denies melana and hematochezia. Likely 2/2 CKD which has now progressed to ESRD. Hgb has remained stable s/p transfusions Plan: ? CTM H&H, transfuse if hemoglobin <7 #[id number] diabetes mellitus Patient on metformin outpatient. Hemoglobin A1c 6.4% 04/12/25. - Sliding scale insulin - Inpatient blood glucose goal 140-200 - Follow fingerstick AC - Carb consistent diet - Hypoglycemia protocol #Hypertension - Continue Coreg 25 mg twice daily and started Losartan 25 mg daily Hospital management: Lines: TDC, peripheral IV Diet: Renal Bowel: Senna GI prophylaxis: None DVT prophylaxis: heparin q12 Disposition: med surg awaiting pericardiocentesis and management of large L pleural effusion CODE STATUS: Full code Plan of care discussed with attending Dr. Peter, and PGY-2 Dr. Julio Courtney, DO PGY-1 Internal Medicine Attending Provider Attestation/Addendum I Terrance Peter MD reviewed the note and agree with the resident's assessment & plan with modifications/additions/exceptions as below. I have personally reviewed labs, imaging, home meds/prior records, examined the patient, formulated and discussed management plan with the IM team. A 54-year-old female with a Hx of DM, HTN, heart failure with moderately reduced EF, CKD presented to ED with shortness of breath and edema noted to have deteriorating renal function leading to end-stage renal disease requiring hemodialysis. Patient also noted to have large pericardial and pleural effusion. If patient continues to require supplemental oxygen, will do therapeutic thoracentesis for symptom management. Cardiology is on board and plan for pericardiocentesis on 04/17/2025 as there is no evidence of tamponade physiology on echocardiogram. Patient also noted to have severe anemia requiring transfusion however posttransfusion hemoglobin had been stable with likely etiology related to end-stage renal disease. Will resume GDMT, increase Coreg and start on losartan 25 mg daily. Patient is also pending chair time. Cardiology is on board, will defer evaluation of CAD modality to cardiology team's discretion.
[2025-04-15] MEDS: HEPARIN SOD INJ 5000 UNIT/ML VIAL SC (20:27)
--- NOTE | 2025-04-15 20:44 | ESPR_ITS ---
<Statement entered by Daksha Prasad MD - 04/16/25 19:09> I personally examined the patient evaluate the patient chronically she is doing better after dialysis but still a lot of shortness of breath there is large pericardial effusion will get echocardiogram repeated tomorrow before proceeding with possible pericardiocentesis on 04/17/2025. Documentation for date of: 04/15/25 Subjective Subjective Interval history: No acute overnight events. Denies new or worsening symptoms. Continued on room air, satting well without signs of respiratory distress. Denies fever, chills, headaches, chest pain, sob, cough, GI or urinary symptoms. Exam Vital Signs Temp Pulse Resp BP Pulse Ox O2 Del Method O2 Flow Rate 97.1 F 71 17 160/75 H 95 Nasal Cannula 2 04/15/25 16:00 04/15/25 17:13 04/15/25 16:00 04/15/25 17:13 04/15/25 16:00 04/15/25 16:00 04/15/25 16:00 FiO2 30 04/15/25 16:00 Narrative Exam GENERAL: AOx3, no acute distress HEENT: NC/AT, mucous membranes moist, bilateral sclera anicteric R IJ TDC in place CARDIOVASCULAR: regular rate and rhythm, S1/S2 present, no murmurs appreciated PULMONARY: +diminished breath sounds at L lung base, R CTA, no rales/rhonchi/wheezes ABDOMINAL: soft, non-tender, non-distended, no rebound/guarding, bowel sounds present EXTREMITIES: trace BLE edema SKIN: warm and dry, intact, no rashes NEURO: CN II-XII grossly intact, no focal deficits, alert, following commands Objective Labs 04/15/25 05:08 04/15/25 05:08 Labs: Laboratory Results - last 24 hr 04/15/25 05:08 WBC 5.4 RBC 2.86 L Hgb 8.2 L Hct 25.4 L MCV 89 MCH 28.7 MCHC 32.3 RDW Std Deviation 41.0 Plt Count 194 Neut % (Auto) 66 Lymph % (Auto) 23 [place] % (Auto) 9 Eos % (Auto) 2 Baso % (Auto) 0 Neut # (Auto) 3.6 Lymph # (Auto) 1.3 [place] # (Auto) 0.5 Eos # (Auto) 0.1 Baso # (Auto) 0.0 Immature Gran # (Auto) 0.02 H Absolute Nucleated RBC 0.00 Immature Gran % 0 Nucleated RBC % 0 Sodium 134 L Potassium 4.6 D Chloride 97 L Carbon Dioxide 27.5 Anion Gap 10 BUN 43 H Creatinine 4.3 H* D Estim Creat Clear Calc 11.2 L eGFR 12 L* BUN/Creatinine Ratio 10 L Glucose 135 H Calculated Osmolality 281 Calcium 8.1 L Corrected Calcium 8.8 Phosphorus 3.0 Magnesium 1.5 L Albumin 3.1 L ABG Interpretation ABG results: 04/09/25 08:41 ABG pH 7.31 L ABG pCO2 40 ABG pO2 78 L ABG HCO3 20 ABG O2 Saturation 96 ABG Base Excess -6 L Quality Measures Quality Measures VTE prophylaxis Assessment & Plan Assessment Current Active Medications: Generic Name Dose Route Start Last Admin Trade Name Freq PRN Reason Stop Dose Admin Acetaminophen 650 mg 04/08/25 21:29 Acetaminophen 325 Mg Tablet PO 05/08/25 21:28 Q6H PRN Fever >101.5 Acetaminophen 650 mg 04/08/25 21:34 Acetaminophen 325 Mg Tablet PO 05/08/25 21:33 Q6H PRN PAIN SCALE 1-3 (mild Bumetanide 2 mg 04/15/25 09:00 04/15/25 11:31 Bumetanide 0.5 Mg Tablet PO 05/15/25 08:59 2 mg QDAY TEMO Administration Calcium Carbonate 600 mg 04/09/25 09:00 04/15/25 11:31 Calcium Carbonate 600 Mg Tablet PO 05/09/25 08:59 600 mg QDAY TEMO Administration Carvedilol 25 mg 04/15/25 17:30 04/15/25 17:13 Carvedilol 12.5 Mg Tablet PO 05/15/25 17:29 25 mg BIDWM TEMO Administration Dextrose 25 ml 04/11/25 12:14 Dextrose 50%-Water Inj 50 Ml Syringe IV 05/11/25 12:13 Q15MIN PRN BG 50-70 responsive npo pt Dextrose 50 ml 04/11/25 12:14 Dextrose 50%-Water Inj 50 Ml Syringe IV 05/11/25 12:13 Q15MIN PRN BG <50 OR BG <70 & pt unresponsive Glucagon 1 mg 04/11/25 12:14 Glucagon Inj 1 Mg Vial IM Q15MIN PRN BG <70, and no IV access Heparin Sodium (Porcine) 5,000 unit 04/09/25 09:00 04/15/25 20:27 Heparin Sod Inj 5000 Unit/Ml Vial SC 04/23/25 08:59 5,000 unit Q12HR TEMO Administration Heparin Sodium (Porcine) 3,800 unit 04/11/25 16:53 04/15/25 11:05 Heparin Sod Inj 1000 Unit/Ml Vial 10 Ml INDWELLCAT 04/25/25 16:52 3,800 unit X1 PRN Administration DIALYSIS Albumin Human 25 gm in 100 mls @ 100 mls/min 04/09/25 15:50 Albuminar-25 Ivpb IV PRN PRN DIALYSIS Insulin Human Lispro 0 unit 04/11/25 17:00 04/15/25 17:12 Insulin Lispro (Admelog) 1 Unit/0.01 Ml Unit SC 05/11/25 16:59 1 unit AC TEMO Administration Protocol Losartan Potassium 25 mg 04/15/25 11:30 04/15/25 11:31 Losartan Potassium 25 Mg Tablet PO 05/15/25 11:29 25 mg QDAY TEMO Administration Ondansetron HCl 4 mg 04/08/25 21:34 04/08/25 22:27 Ondansetron Inj 2 Mg/Ml Inj 2 Ml IVP 05/08/25 21:33 4 mg Q6H PRN Administration NAUSEA OR VOMITING Protocol Sennosides 1 tab 04/08/25 21:34 Senna Tablet PO 05/08/25 21:33 QDAY PRN constipation Protocol Plan 54-year-old female with a past medical history of hypertension, CKD, type 2 diabetes mellitus who presented to the ED on 04/08/2025 with worsening shortness of breath, bilateral lower extremity swelling and abdominal pain for approximately 3 months. Cardiology was consulted for management of the patient's pericardial effusion. 1. Newly diagnosed CHF with EF 45% likely in settings of pericardial effusion. 2. Moderate to large pericardial effusion, most likely uremic. 3. Large left pleural effusion. 4. ESRD, newly requiring hemodialysis. 5. NAGMA likely to lead to renal failure (resolved). 6. Chronic normocytic anemia in settings of ESRD. 7. T2DM, no INSULIN use 8. Hypertension This is a 50-year-old female placement screening of HTN, CKD, T2DM, presented with worsening shortness of breath with bilateral lower extremity noted exam. Left finding significant for acute renal failure with elevated creatinine and BUN, several metabolic abnormalities requiring new hemodialysis. Echocardiogram showed moderate to large pleural effusion which is likely to be uremic of nature, mild global hypokinesis with LVEF of 45% likely in settings of pericardial effusion. Evidence of tamponade noted on echocardiogram. CXR showed large left pleural effusion. She continued on hemodialysis. Electrolytes have improved, creatinine is downtrending, symptom cleared of shortness of breath are also resolving. RECOMMENDATIONS: Myocardial infarction and ejection fraction would likely recover after treating pericardial effusion. Recommended continuing with hemodialysis to correct uremia and volume overload, which will likely improve pericardial effusion. At this point, no indication for cardiocentesis given that her shortness of breath improving, no evidence of tamponade were noted. However will repeat echocardiogram in the a.m., and consider pericardiocentesis if effusion does not improve with hemodialysis. Recommended GDMT if tolerated. Maintain K>4.0 and Mag>2.0. Continue treating underlying cause. The remainder of the patient's problems will be managed per the patient's primary team. Case was discussed with attending physician, Dr. Prasad. Donald Hitchcock, DO PGY II This document was transcribed using voice recognition technology. Minor inaccuracies may be present.
--- NOTE | 2025-04-15 20:58 | ECHO_ITS ---
Transthoracic Echo Report Ht (in): 57 Wt (lb): 133 Exam Location: Echo Lab Status: Inpatient Vp Platforms: Yumi Saldana Indications: Procedure Performed: BP: 161 / 73 HR: 65 Technical Quality: Fair MEASUREMENTS (Male / Female) Normal Values 2D ECHO LV Diastolic Diameter PLAX 3.9 cm 4.2 - 5.9 / 3.9 - 5.3 cm LV Systolic Diameter PLAX 2.5 cm IVS Diastolic Thickness 0.8 cm 0.6 - 1.0 / 0.6 - 0.9 cm LVPW Diastolic Thickness 0.8 cm 0.6 - 1.0 / 0.6 - 0.9 cm LV Relative Wall Thickness 0.4 LVOT Diameter 1.6 cm LA Volume Index 29.8 cm?/m? 16 - 28 cm?/m? M-MODE Aortic Root Diameter MM 2.5 cm LA Systolic Diameter MM 3.7 cm LA Ao Ratio MM 1.5 AV Cusp Separation MM 1.7 cm DOPPLER AV Peak Velocity 162.0 cm/s AV Peak Gradient 10.5 mmHg AV Mean Gradient 4.0 mmHg AV Velocity Time Integral 35.0 cm LVOT Peak Velocity 118.0 cm/s LVOT Peak Gradient 5.6 mmHg LVOT Velocity Time Integral 24.1 cm LVOT Cardiac Index 1991.7 cm?/min?m? AV Area Cont Eq vti 1.4 cm? AV Area Cont Eq pk 1.5 cm? MV Area PHT 2.7 cm? MR Peak Velocity 498.0 cm/s MR Peak Gradient 99.2 mmHg Mitral E Point Velocity 92.6 cm/s Mitral A Point Velocity 73.2 cm/s Mitral E to A Ratio 1.3 LV E' Lateral Velocity 6.7 cm/s Mitral E to LV E' Lateral Ratio 13.7 LV E' Septal Velocity 4.0 cm/s Mitral E to LV E' Septal Ratio 23.0 TR Peak Velocity 255.0 cm/s TR Peak Gradient 26.0 mmHg PV Peak Velocity 137.0 cm/s PV Peak Gradient 7.5 mmHg FINDINGS Left Ventricle Normal left ventricular size, wall thickness. Normal left ventricular diastolic filling pattern for age. The ejection fraction is visually estimated at 45-50%. Global left ventricular systolic function is mildly decreased. Right Ventricle The right ventricle is normal in size and systolic function. The estimated right ventricular systolic pressure, 38 mmHg. RAP 15. Left Atrium The left atrium is normal by two-dimensional, color flow and Doppler imaging with no structural abnormalities, no thrombus formation present. Right Atrium The right atrium is normal by two-dimensional imaging, color flow and Doppler imaging with no structural abnormalities, no thrombus formation present. Atrial Septum The interatrial septum appears normal with no evidence of a shunt. Aorta The aorta is normal by two-dimensional, color flow and Doppler interrogation. Mitral Valve The mitral valve is normal by two-dimensional, color flow and Doppler interrogation. Mild MR. Aortic Valve The aortic valve is trileaflet and normal by two-dimensional, color flow and Doppler interrogation. There is no significant aortic valve regurgitation. Tricuspid Valve The tricuspid valve is normal by two-dimensional, color flow and Doppler interrogation. Mild TR. Pulmonic Valve The pulmonic valve is not well visualized. There is no significant pulmonic valve regurgitation. Vessels Dilated inferior vena cava. Pericardium Moderate to large pericardial effusion. CONCLUSIONS Indication: Pericardial effusion Normal LV size and wall thickness. Normal LV diastolic function. Estimated at EF 45-50% Global left ventricular systolic function is mildly decreased. The RV is normal in size and systolic function. The estimated RVSP, 38 mmHg. RAP 15. Dilated IVC. Moderate to large pericardial effusion. with early signs of tamponade truscpid variation 50% Trudy Vinson (Electronically Signed) Final Date: 16 April 2025 17:59
[2025-04-16] VITALS (15 sets, daily range): BP systolic 152–161; BP diastolic 73–79; PULSE 62–72; RESP 13–18; TEMP 36.1–36.6; O2SAT 92–100
[2025-04-16 06:12] LABS: Basophils # (Auto) 0.0 Thou/mm3 (0.0-0.2); Basophils % (Auto) 0 % (0-2.5); Eosinophils # (Auto) 0.1 Thou/mm3 (0.0-0.5); Eosinophils % (Auto) 2 % (0-10); Hematocrit 25.4 % (36.0-46.0); Hemoglobin 8.1 g/dL (12.0-16.0); Immature Granulocytes Auto 0.01 Thou/mm3 (0.00-0.00); Lymphocytes # (Auto) 1.2 Thou/mm3 (1.0-4.8); Lymphocytes % (Auto) 23 % (10-50); Mean Corpuscular HGB Conc 31.9 g/dl (31.0-37.0); Mean Corpuscular Hemoglobin 28.6 pg (25.0-35.0); Mean Corpuscular Volume 90 fL (80-100); Monocytes # (Auto) 0.5 Thou/mm3 (0.0-0.8); Monocytes % (Auto) 10 % (0-12); Neutrophils # (Auto) 3.2 Thou/mm3 (1.8-7.7); Neutrophils % (Auto) 65 % (37-80); Nucleated Red Blood Cell # 0.00 Thou/mm3 (0.00-0.00); Nucleated Red Blood Cell % 0 /100 WBC (0); Platelet Count 183 Thou/mm3 (140-440); RDW Standard Deviation 42.3 fL (36.4-46.3); Red Blood Count 2.83 Miln/mm3 (4.00-5.20); White Blood Count 5.0 Thou/mm3 (3.6-11.0)
[2025-04-16 07:36] LABS: Albumin, Serum 3.3 gm/dL (3.5-5.0); Anion Gap 8 (7-16); BUN/Creatinine Ratio 9 Ratio (12-20); Blood Urea Nitrogen 32 mg/dL (9-23); Calcium 8.3 mg/dL (8.3-10.6); Calcium (Corrected) 8.9 mg/dL (8.5-10.1); Carbon Dioxide 29.0 mMol/L (20.0-31.0); Chloride 99 mMol/L (98-107); Creatinine (Component) 3.4 mg/dL (0.6-1.3); Estimated Creatinine Clearance 13.7 mL/min (>60); Glucose 133 mg/dL (74-106); Magnesium 2.5 mg/dL (1.6-2.6); Osmolality,Calculated 280 (275-295); Phosphorous 2.5 mg/dL (2.4-5.1); Potassium 4.6 mMol/L (3.4-5.1); Sodium 136 mMol/L (136-145); eGFR 15 See Note
[2025-04-16] MEDS: BUMETANIDE 0.5 MG TABLET 2 MG PO (09:11)
[2025-04-16] MEDS: HEPARIN SOD INJ 5000 UNIT/ML VIAL SC (09:12)
[2025-04-16] MEDS: LOSARTAN POTASSIUM 25 MG TABLET PO (09:12)
[2025-04-16] MEDS: CALCIUM CARBONATE 600 MG TABLET PO (09:12)
[2025-04-16] MEDS: INSULIN LISPRO (AdmeLOG) 1 UNIT/0.01 ML UNIT SC (11:51)
--- NOTE | 2025-04-16 12:00 | PC.NURSE ---
Patient does not want to sign consent for pericardiocentecis, patient states does not really understand procedure and would like MD to explain procedure using salon stylist. DEBBY [id number]. RN called Dr. Prasad and informed him. Dr. Prasad states will come talk to patient when he's free.
--- NOTE | 2025-04-16 13:14 | ESPR_ITS ---
<Statement entered by Daksha Prasad MD - 04/16/25 19:10> I examined evaluated the patient who appears to be doing better but still has shortness of breath orthopnea due to large pericardial effusion cardiac echo showed an impending tamponade tricuspid flow variations 50% mitral flow variations 40% impending cardiac tamponade hence will recommend pericardiocentesis drainage catheter placement tomorrow in Corporate Safety Director will get a consent in [place]i language. Documentation for date of: 04/16/25 Subjective Subjective Interval history: No overnight events. Patient still admits to shortness of breath. Most recent echo showed an estimated volume of about 1 liter of fluid surrounding the pericardium. Cardiology plans for pericardiocentesis on 04/17/2025. Will hold heparin in anticipation of procedure. Exam Vital Signs Temp Pulse Resp BP Pulse Ox O2 Del Method O2 Flow Rate 97.0 F 69 18 154/74 H 99 Nasal Cannula 3 04/16/25 12:00 04/16/25 12:13 04/16/25 12:00 04/16/25 12:00 04/16/25 12:00 04/16/25 12:00 04/16/25 12:00 FiO2 30 04/16/25 12:00 Narrative Exam General: Overweight lady, increased work of breathing. Neurologic: GCS 15. Alert and oriented x3, no gross neurological deficit, and patient able to move all 4 extremities. HEENT: Right IJ tunneled dialysis catheter. Normocephalic, atraumatic, mucous membranes moist. Pupils reactive to light. Heart: Regular rate and rhythm, normal S1 and S2, no murmurs. Lungs: Diminished breath sounds at the left lung base. Abdomen: Soft, nondistended, nontender, positive bowel sounds. No guarding or rebound tenderness. Extremities: Trace bilateral lower extremity pitting edema. 2+ radial and dorsalis pedis pulses bilaterally. Skin: Warm. Dry. No rash or ecchymoses. Objective Labs 04/16/25 05:20 04/16/25 05:20 Labs: Laboratory Results - last 24 hr 04/16/25 05:20 WBC 5.0 RBC 2.83 L Hgb 8.1 L Hct 25.4 L MCV 90 MCH 28.6 MCHC 31.9 RDW Std Deviation 42.3 Plt Count 183 Neut % (Auto) 65 Lymph % (Auto) 23 Levy % (Auto) 10 Eos % (Auto) 2 Baso % (Auto) 0 Neut # (Auto) 3.2 Lymph # (Auto) 1.2 Levy # (Auto) 0.5 Eos # (Auto) 0.1 Baso # (Auto) 0.0 Immature Gran # (Auto) 0.01 H Absolute Nucleated RBC 0.00 Immature Gran % 0 Nucleated RBC % 0 Sodium 136 Potassium 4.6 Chloride 99 Carbon Dioxide 29.0 Anion Gap 8 BUN 32 H Creatinine 3.4 H D Estim Creat Clear Calc 13.7 L eGFR 15 L BUN/Creatinine Ratio 9 L Glucose 133 H Calculated Osmolality 280 Calcium 8.3 Corrected Calcium 8.9 Phosphorus 2.5 Magnesium 2.5 Albumin 3.3 L ABG Interpretation ABG results: 04/09/25 08:41 ABG pH 7.31 L ABG pCO2 40 ABG pO2 78 L ABG HCO3 20 ABG O2 Saturation 96 ABG Base Excess -6 L Quality Measures Quality Measures VTE prophylaxis Assessment & Plan Assessment Current Active Medications: Generic Name Dose Route Start Last Admin Trade Name Moq PRN Reason Stop Dose Admin Acetaminophen 650 mg 04/08/25 21:29 Acetaminophen 325 Mg Tablet PO 05/08/25 21:28 Q6H PRN Fever >101.5 Acetaminophen 650 mg 04/08/25 21:34 Acetaminophen 325 Mg Tablet PO 05/08/25 21:33 Q6H PRN PAIN SCALE 1-3 (mild Bumetanide 2 mg 04/15/25 09:00 04/16/25 09:11 Bumetanide 0.5 Mg Tablet PO 05/15/25 08:59 2 mg QDAY TEMO Administration Calcium Carbonate 600 mg 04/09/25 09:00 04/16/25 09:12 Calcium Carbonate 600 Mg Tablet PO 05/09/25 08:59 600 mg QDAY TEMO Administration Carvedilol 25 mg 04/15/25 17:30 04/16/25 07:18 Carvedilol 12.5 Mg Tablet PO 05/15/25 17:29 25 mg BIDWM TEMO Administration Dextrose 25 ml 04/11/25 12:14 Dextrose 50%-Water Inj 50 Ml Syringe IV 05/11/25 12:13 Q15MIN PRN BG 50-70 responsive npo pt Dextrose 50 ml 04/11/25 12:14 Dextrose 50%-Water Inj 50 Ml Syringe IV 05/11/25 12:13 Q15MIN PRN BG <50 OR BG <70 & pt unresponsive Glucagon 1 mg 04/11/25 12:14 Glucagon Inj 1 Mg Vial IM Q15MIN PRN BG <70, and no IV access Heparin Sodium (Porcine) 5,000 unit 04/09/25 09:00 04/16/25 09:12 Heparin Sod Inj 5000 Unit/Ml Vial SC 04/23/25 08:59 5,000 unit Q12HR TEMO Administration Heparin Sodium (Porcine) 3,800 unit 04/11/25 16:53 04/15/25 11:05 Heparin Sod Inj 1000 Unit/Ml Vial 10 Ml INDWELLCAT 04/25/25 16:52 3,800 unit X1 PRN Administration DIALYSIS Albumin Human 25 gm in 100 mls @ 100 mls/min 04/09/25 15:50 Albuminar-25 Ivpb IV PRN PRN DIALYSIS Insulin Human Lispro 0 unit 04/11/25 17:00 04/16/25 11:51 Insulin Lispro (Admelog) 1 Unit/0.01 Ml Unit SC 05/11/25 16:59 1 unit AC TEMO Administration Protocol Losartan Potassium 50 mg 04/17/25 09:00 Losartan Potassium 25 Mg Tablet PO 05/17/25 08:59 QDAY TEMO Ondansetron HCl 4 mg 04/08/25 21:34 04/08/25 22:27 Ondansetron Inj 2 Mg/Ml Inj 2 Ml IVP 05/08/25 21:33 4 mg Q6H PRN Administration NAUSEA OR VOMITING Protocol Sennosides 1 tab 04/08/25 21:34 Senna Tablet PO 05/08/25 21:33 QDAY PRN constipation Protocol Plan 54-year-old female with a past medical history of hypertension, CKD, type 2 diabetes mellitus who presented to the ED on 04/08/2025 with worsening shortness of breath, bilateral lower extremity swelling and abdominal pain for approximately 3 months. Cardiology was consulted for management of the patient's pericardial effusion. #CHF #Shortness of breath #Pericardial effusion - BNP was over 3000 on presentation, the patient was initially attempted on diuresis however 2 units of PRBCs were transfused resulting in further fluid overloading which worsened the patient's shortness of breath - Shortness of breath may be due to several factors, consider congestive heart failure in combination with pericardial effusion and fluid overload, trace bilateral lower extremity pitting edema on exam supports CHF as a culprit - NSTEMI evidenced by elevated tropes may suggest an ischemic contribution to heart failure - Echocardiogram on 04/08/2025 showed mild global hypokinesis of the left ventricle with an EF of 45%, there was mild mitral regurg and tricuspid regurg, finally there was a moderate to large pericardial effusion with no evidence of tamponade with a volume of fluid estimated to be 1 L - There is mild evidence of hemodynamically significant cardiac tamponade at this time however the large pericardial effusion is likely contributing to dyspnea through impaired ventricular filling in combination with CHF, fluid overload, and ischemia as contributing factors - Patient's shortness of breath is still significant morning of 04/16/2025 following hemodialysis that was performed on 04/15/2025 Plan: - Cardiology plans for pericardiocentesis on Thursday04/17/2025 for diagnosis and therapeutic benefit, expect improvement in dyspnea through relief of impaired ventricular filling - Hold heparin, resume evening of 04/17/2025 #New ESRD, likely 2/2 diabetic nephropathy and hypertensive nephrosclerosis #New onset Hemodialysis #New onset HFrEF, EF 45% (04/08/2025) #High anion gap metabolic acidosis (resolved) #Uremia (resolved) #Hyperkalemia (resolved) #Normocytic anemia (resolved) #[id number] diabetes mellitus #Hypertension The remainder of the patient's problems will be managed per the patient's primary team. Patient was seen and discussed with my attending physician Dr. Prasad. Manny Evans DO PGY-1.
--- NOTE | 2025-04-16 14:15 | ESPR_ITS ---
Documentation for date of: 04/16/25 Subjective Subjective Interval history: Overnight events: No acute events overnight. Patient was seen and examined at bedside. AM vitals and labs reviewed. Patient breathing comfortably on 1 L nasal cannula. No increased work of breathing, no accessory muscle use. Patient has no pain. No complaints at this time. Cardiology plans for pericardiocentesis tomorrow 04/17. Will plan for thoracentesis for left pleural effusion tomorrow 04/17. Continue Bumex 2 mg. Continue Coreg 25 mg twice daily, increase losartan 25 mg to 50 mg. Review of systems otherwise negative except for what is mentioned above. Exam Vital Signs Temp Pulse Resp BP Pulse Ox O2 Del Method O2 Flow Rate 97.0 F 69 18 154/74 H 99 Nasal Cannula 3 04/16/25 12:00 04/16/25 12:13 04/16/25 12:00 04/16/25 12:00 04/16/25 12:00 04/16/25 12:00 04/16/25 12:00 FiO2 30 04/16/25 12:00 Narrative Exam Physical Exam: General: Alert, no acute distress. Skin: Warm, dry, intact, no obvious rash. RIJ tunneled dialysis catheter noted. Head: Normocephalic, atraumatic. Eye: Normal conjunctiva, PERRL. Cardiovascular: Regular rate and rhythm, no murmur, +S1/S2. Respiratory: Lungs are clear to auscultation, respirations unlabored, no crackles, no wheezing. Gastrointestinal: Soft, nontender, non-distended. No guarding or rebound tenderness. Extremities: No edema, no cyanosis, no clubbing. 2+ radial pulse bilaterally, 2+ pedal pulse bilaterally. Neuro: No focal deficits observed. Conversant, moving all extremities. No overt cerebellar signs/incoordination. Psychiatric: Cooperative, appropriate affect. Objective Labs 04/16/25 05:20 04/16/25 05:20 Labs: Laboratory Results - last 24 hr 04/16/25 05:20 WBC 5.0 RBC 2.83 L Hgb 8.1 L Hct 25.4 L MCV 90 MCH 28.6 MCHC 31.9 RDW Std Deviation 42.3 Plt Count 183 Neut % (Auto) 65 Lymph % (Auto) 23 [place] % (Auto) 10 Eos % (Auto) 2 Baso % (Auto) 0 Neut # (Auto) 3.2 Lymph # (Auto) 1.2 [place] # (Auto) 0.5 Eos # (Auto) 0.1 Baso # (Auto) 0.0 Immature Gran # (Auto) 0.01 H Absolute Nucleated RBC 0.00 Immature Gran % 0 Nucleated RBC % 0 Sodium 136 Potassium 4.6 Chloride 99 Carbon Dioxide 29.0 Anion Gap 8 BUN 32 H Creatinine 3.4 H D Estim Creat Clear Calc 13.7 L eGFR 15 L BUN/Creatinine Ratio 9 L Glucose 133 H Calculated Osmolality 280 Calcium 8.3 Corrected Calcium 8.9 Phosphorus 2.5 Magnesium 2.5 Albumin 3.3 L ABG Interpretation ABG results: 04/09/25 08:41 ABG pH 7.31 L ABG pCO2 40 ABG pO2 78 L ABG HCO3 20 ABG O2 Saturation 96 ABG Base Excess -6 L Quality Measures Quality Measures VTE prophylaxis Assessment & Plan Assessment Current Active Medications: Generic Name Dose Route Start Last Admin Trade Name Freq PRN Reason Stop Dose Admin Acetaminophen 650 mg 04/08/25 21:29 Acetaminophen 325 Mg Tablet PO 05/08/25 21:28 Q6H PRN Fever >101.5 Acetaminophen 650 mg 04/08/25 21:34 Acetaminophen 325 Mg Tablet PO 05/08/25 21:33 Q6H PRN PAIN SCALE 1-3 (mild Bumetanide 2 mg 04/15/25 09:00 04/16/25 09:11 Bumetanide 0.5 Mg Tablet PO 05/15/25 08:59 2 mg QDAY TEMO Administration Calcium Carbonate 600 mg 04/09/25 09:00 04/16/25 09:12 Calcium Carbonate 600 Mg Tablet PO 05/09/25 08:59 600 mg QDAY TEMO Administration Carvedilol 25 mg 04/15/25 17:30 04/16/25 07:18 Carvedilol 12.5 Mg Tablet PO 05/15/25 17:29 25 mg BIDWM TEMO Administration Dextrose 25 ml 04/11/25 12:14 Dextrose 50%-Water Inj 50 Ml Syringe IV 05/11/25 12:13 Q15MIN PRN BG 50-70 responsive npo pt Dextrose 50 ml 04/11/25 12:14 Dextrose 50%-Water Inj 50 Ml Syringe IV 05/11/25 12:13 Q15MIN PRN BG <50 OR BG <70 & pt unresponsive Glucagon 1 mg 04/11/25 12:14 Glucagon Inj 1 Mg Vial IM Q15MIN PRN BG <70, and no IV access Heparin Sodium (Porcine) 5,000 unit 04/09/25 09:00 04/16/25 09:12 Heparin Sod Inj 5000 Unit/Ml Vial SC 04/23/25 08:59 5,000 unit Q12HR TEMO Administration Heparin Sodium (Porcine) 3,800 unit 04/11/25 16:53 04/15/25 11:05 Heparin Sod Inj 1000 Unit/Ml Vial 10 Ml INDWELLCAT 04/25/25 16:52 3,800 unit X1 PRN Administration DIALYSIS Albumin Human 25 gm in 100 mls @ 100 mls/min 04/09/25 15:50 Albuminar-25 Ivpb IV PRN PRN DIALYSIS Insulin Human Lispro 0 unit 04/11/25 17:00 04/16/25 11:51 Insulin Lispro (Admelog) 1 Unit/0.01 Ml Unit SC 05/11/25 16:59 1 unit AC TEMO Administration Protocol Losartan Potassium 50 mg 04/17/25 09:00 Losartan Potassium 25 Mg Tablet PO 05/17/25 08:59 QDAY TEMO Ondansetron HCl 4 mg 04/08/25 21:34 04/08/25 22:27 Ondansetron Inj 2 Mg/Ml Inj 2 Ml IVP 05/08/25 21:33 4 mg Q6H PRN Administration NAUSEA OR VOMITING Protocol Sennosides 1 tab 04/08/25 21:34 Senna Tablet PO 05/08/25 21:33 QDAY PRN constipation Protocol Plan [facility] Crow[facility] is a 54F with a pmhx significant for HTN, T2DM, and ESRD who presented to [facility] ED on 04/08 with worsening shortness of breath and anasarca, admitted for acute on chronic renal failure and initation of HD. #New onset HFrEF, EF 45% (04/08/2025) #Mild global hypokinesis noted on echocardiogram, suspicion of ischemic cardiomyopathy #Pericardial effusion #L pleural effusion NYHA Class I On admission EKG, some T wave inversions seen in lead I, aVL and BNP >3000 Likely cardiorenal type II vs type IV iso CKD and new ESRD Echocardiogram 04/08/2025 showed normal LV size, mild global hypokinesis, ejection fraction 45%, and pericardial effusion that is moderate to large size Repeat CXR shows marked enlargement of the cardiac contour, significant vascular congestion and large left pleural effusion Pleural effusion likely transudative 2/2 pericardial effusion Plan: ? Patient to follow-up with outpatient cardiology for further heart failure workup and management - Consulted cardiology for new onset congestive heart failure with echo changes of global hypokinesis - Increase carvedilol 25 twice daily - Hold amlodipine for now - Start Losartan 25 mg QD - Suspicion of ischemic cardiomyopathy, patient will likely need a cardiac catheterization at some point - Plan for pericardiocentesis 04/17 - Plan for thoracentesis 04/17 #New ESRD, likely 2/2 diabetic nephropathy and hypertensive nephrosclerosis likely DEBBY on CKD #New onset Hemodialysis Presented with creatinine of 8.0, BUN 71, and GFR of 6 and significant bilateral lower extremity edema. Previously followed a sales and leasing consultant, but stopped over a year ago due to insurance issues. Likely 2/2 uncontrolled diabetes exacerbated by fluid overload from possible underlying CHF vs primarily renal failure. No known history of heart failure or cardiac disease, no echo on file. BNP >3,000. Initially attempted to diurese patient, but had to transfuse 2 units of packed RBCs, which resulted in the patient becoming further fluid overloaded, worsening her shortness of breath, leading to requirement for HD. TDC placed 04/11. Received HD: 04/09, 04/10, 04/11, 04/13, 04/15 Plan: ? Nephrology consulted, recs appreciated - PO Bumex 2 mg QD ? Strict I&O's, daily weights ? Avoid nephrotoxic medications and renally dose medications ? CTM renal panel #High anion gap metabolic acidosis (resolved) #Uremia (resolved) On repeat renal panel 04/09, the patient had bicarb of 14.6 with anion gap of 19. Patient also had an ABG which showed pH of 7.31. Likely due to acute renal failure, resulting in retention of hydrogen and uremia of 62. Plan: - CTM renal panel - Continue HD per nephrology #Hyperkalemia (resolved) Patient presented with potassium of 5.5, which has not improved over time after hyperkalemia protocol. Patient did receive 2 units of packed RBCs and diuresis. This is likely due to the patient's acute renal failure resulting in accumulation of potassium. Plan: ? Nephrology consulted, managed by HD - CTM renal panel #Normocytic anemia Admission H&H 5.7/18. s/p 2 units of packed RBCs in the ED, which increased her H&H to 9.2/27.9. There is no signs of active bleeding, no hematemesis, denies melana and hematochezia. Likely 2/2 CKD which has now progressed to ESRD. Hgb has remained stable s/p transfusions Plan: ? CTM H&H, transfuse if hemoglobin <7 #[id number] diabetes mellitus Patient on metformin outpatient. Hemoglobin A1c 6.4% 04/12/25. - Sliding scale insulin - Inpatient blood glucose goal 140-200 - Follow fingerstick AC - Carb consistent diet - Hypoglycemia protocol DVT Prophylaxis: Heparin GI Prophylaxis: N/A Bowel: Senna Diet: Renal Rodriguez: N/A Lines: Peripheral IV, RIJ TDC Antibiotics: N/A Code Status: FULL Reason for Hospitalization: ESRD Other Barriers to Discharge: Dialysis chair time, insurance Patient plan of care was discussed with the senior resident Dr. Petre and attending physician Dr. Peter. Chente Pickens, PGY1 Attending Provider Attestation/Addendum I Terrance Peter MD reviewed the note and agree with the resident's assessment & plan with modifications/additions/exceptions as below. I have personally reviewed labs, imaging, home meds/prior records, examined the patient, formulated and discussed management plan with the IM team. A 54-year-old female with a Hx of DM, HTN, heart failure with moderately reduced EF, CKD presented to ED with shortness of breath and edema noted to have deteriorating renal function leading to end-stage renal disease requiring hemodialysis. Patient also noted to have large pericardial and pleural effusion. If patient continues to require supplemental oxygen, will do therapeutic thoracentesis for symptom management. Cardiology is on board and plan for pericardiocentesis on 04/17/2025 as there is no evidence of tamponade physiology on echocardiogram. Also consulted IR for therapeutic thoracentesis. Patient also noted to have severe anemia requiring transfusion however posttransfusion hemoglobin had been stable with likely etiology related to end- stage renal disease. Will resume GDMT, continue Coreg and losartan and Bumex. Patient is also pending chair time. Cardiology is on board, will defer evaluation of CAD modality to cardiology team's discretion.
[2025-04-17] VITALS (83 sets, daily range): BP systolic 123–168; BP diastolic 62–101; PULSE 63–82; RESP 0–64; TEMP 36.2–37.9; O2SAT 95–100
--- NOTE | 2025-04-17 08:39 | ECHO_ITS ---
Transthoracic Echo Report Ht (in): Wt (lb): Exam Location: Echo Lab Status: Inpatient Fermenter: Jessi Glover Indications: Procedure Performed: BP: / HR: CONCLUSIONS Indication: Pericardiocentesis 1059 mL fluid taken out successful Pericardiocentecis No residual effusion post procedure Trudy Vinson (Electronically Signed) Final Date: 17 April 2025 22:02
--- NOTE | 2025-04-17 09:01 | PC.SS ---
Follow up note: SS called [facility] with Dr. Mcgovern and dialysis chair time is still pending. Per Jessi Ziegler will call back SS. Pt will have thoracentesis and pericardiocentesis. Pt will return home upon dc.
--- NOTE | 2025-04-17 10:38 | PC.SS ---
Addendum entered by Qi Olivo 04/17/25 15:24: Pt is now in ICU for closer monitoring. Original Note: SS met with bedside nurseJorge who explained pt will require O2 upon dc. Bedside nurseJorge is aware pt is requiring O2 testing to order home O2.
[2025-04-17 10:55] LABS: Pericardial Fluid Mononuclear 83.4 %; Pericardial Fluid Polynuclear 16.6 %; Pericardial Fluid WBC 6 /cmm
[2025-04-17 10:56] LABS: Pericardial Fluid Appearance Clear; Pericardial Fluid Color Yellow; Pericardial Fluid RBC 2000.000 /cmm
[2025-04-17 11:07] LABS: Amylase,Pericardial Fluid 47 IU/L; Glucose,Pericardial Fluid 147 mg/dL; LDH,Pericardial Fluid 216 IU/L; Protein Total,Pericardial Fld 4 g/dL
--- NOTE | 2025-04-17 11:55 | PD.RESEVENT ---
Documentation for date of: 04/17/25 Event Note Event Note: 54-year-old female with past medical history of hypertension, type 2 diabetes mellitus and CKD with underlying diabetic nephropathy, new onset dialysis for this hospitalization. Patient was scheduled for pericardiocentesis this morning had significant drainage, cardiology recommends pericardiocentesis drain, will be upgraded to intensive care unit for management of pericardial effusion. Patient had no clinical signs and symptoms of tamponade, does have a left pleural effusion for which ICU team will likely perform thoracentesis. Patient signed out to ICU resident and ICU team. Patient will be upgraded to intensive care unit, informed attending Dr. Peter. Case discussed with Attending Physician Dr. Rome Kim MD Internal Medicine PGY-2 Disclaimer: This note was dictated by speech recognition. Minor errors in quality assurance coach may be present due to voice recognition software.
--- NOTE | 2025-04-17 12:14 | PC.NURSE ---
1054 patient is awake, alert, breathing unlabored, s/p pericardiocenthesis, dressing to lower chest dry with no bleeding, drainage bag attached to chest area. Patient changing from room 350 to ICU, waiting for ICU bed assignment. 1214 patient is awake, alert, breathing unlabored, dressing chest area dry with no bleeding, drainage bag has no output at this time. Report given to Maximus CEBALLOS, patient transferred to ICU room 355 with tele box. Raulito Ferreira called and made aware of new room assignment.
[2025-04-17 13:04] LABS: Basophils # (Auto) 0.0 Thou/mm3 (0.0-0.2); Basophils % (Auto) 0 % (0-2.5); Eosinophils # (Auto) 0.1 Thou/mm3 (0.0-0.5); Eosinophils % (Auto) 1 % (0-10); Lymphocytes # (Auto) 1.1 Thou/mm3 (1.0-4.8); Mean Corpuscular Volume 89 fL (80-100); Monocytes # (Auto) 0.5 Thou/mm3 (0.0-0.8); Monocytes % (Auto) 9 % (0-12); Nucleated Red Blood Cell # 0.00 Thou/mm3 (0.00-0.00); Nucleated Red Blood Cell % 0 /100 WBC (0)
[2025-04-17 13:05] LABS: Hematocrit 26.4 % (36.0-46.0); Immature Granulocytes Auto 0.03 Thou/mm3 (0.00-0.00); Lymphocytes % (Auto) 22 % (10-50); Mean Corpuscular HGB Conc 32.6 g/dl (31.0-37.0); Mean Corpuscular Hemoglobin 29.1 pg (25.0-35.0); Neutrophils # (Auto) 3.4 Thou/mm3 (1.8-7.7); Neutrophils % (Auto) 66 % (37-80); Platelet Count 199 Thou/mm3 (140-440); RDW Standard Deviation 42.6 fL (36.4-46.3); Red Blood Count 2.96 Miln/mm3 (4.00-5.20); White Blood Count 5.1 Thou/mm3 (3.6-11.0)
[2025-04-17 13:07] LABS: Hemoglobin 8.6 g/dL (12.0-16.0)
--- NOTE | 2025-04-17 13:12 | PD.RESPRO ---
Documentation for date of: 04/17/25 Subjective Subjective Interval history: Patient is a 54-year-old Albanian-speaking female with past medical history of hypertension, type 2 diabetes, and CKD secondary to diabetic nephropathy who was initially admitted on 04/08/2025 with worsening shortness of breath, bilateral lower extremity swelling, and abdominal discomfort for approximately 3 months, worse in the last month. She had dizziness, easy fatigability, an episode of vomiting, chronic dry cough for the past 2?3 weeks, and using multiple pillows to sleep. During this hospitalization she was found to have new onset HFrEF, EF 45%, with concomitant left pleural effusion, and moderate to large pericardial effusion with no evidence of tamponade. Patient was initiated on dialysis this admission, likely progressed diabetic nephropathy CKD. Pericardiocentesis was performed with 1059 mL fluid taken out on 04/17. 04/17/2025: Patient was upgraded to ICU for monitoring status post pericardiocentesis drain placed today by Dr. Prasad. 250 ml of reddish serosanguinous fluid was pulled out via syringe this evening around 6 pm. Patient is stable, BP 130s/60s, RR 17, HR 77, breathing comfortably on 2L nasal cannula. Patient reports no pain or discomfort at this time. Exam Vital Signs Temp Pulse Resp BP Pulse Ox O2 Del Method O2 Flow Rate 98.6 F 68 12 126/65 98 Nasal Cannula 1 04/18/25 04:00 04/18/25 06:43 04/18/25 06:43 04/18/25 06:00 04/18/25 06:43 04/18/25 00:00 04/18/25 06:43 FiO2 2 04/18/25 00:00 Narrative Exam Physical Exam General: Awake and in no acute distress. Conversational and non-toxic appearing. HEENT: Normocephalic, atraumatic, mucous membranes moist. Nasal cannula in place. Heart: Regular rate and rhythm, normal S1 and S2, no murmurs. Pericardial drain in place central lower chest with stopcock to off position. No chest wall tenderness. Lungs: Clear to auscultation with no wheezing or crackles. Abdomen: Soft, nondistended, nontender, positive bowel sounds. ?No guarding or rebound tenderness. Neurologic: Alert and oriented x3, no gross neurological deficit, and patient able to move all 4 extremities. Extremities: Trace peripheral edema with significant raisining of the skin. Skin: No rash or ecchymoses. Objective Labs 04/18/25 04:37 04/17/25 12:45 Labs: Laboratory Results - last 24 hr 04/17/25 04/17/25 04/18/25 09:12 12:45 04:37 WBC 5.1 8.0 D RBC 2.96 L 3.10 L Hgb 8.6 L 9.0 L Hct 26.4 L 27.5 L MCV 89 89 MCH 29.1 29.0 MCHC 32.6 32.7 RDW Std Deviation 42.6 41.7 Plt Count 199 226 Neut % (Auto) 66 86 H Lymph % (Auto) 22 6 L [place] % (Auto) 9 8 Eos % (Auto) 1 0 Baso % (Auto) 0 0 Neut # (Auto) 3.4 6.8 Lymph # (Auto) 1.1 0.5 L [place] # (Auto) 0.5 0.6 Eos # (Auto) 0.1 0.0 Baso # (Auto) 0.0 0.0 Immature Gran # (Auto) 0.03 H 0.02 H Absolute Nucleated RBC 0.00 0.00 Immature Gran % 1 H 0 Nucleated RBC % 0 0 Sodium 134 L Potassium 5.5 H D Chloride 98 Carbon Dioxide 26.2 Anion Gap 10 BUN 48 H Creatinine 4.3 H* D Estim Creat Clear Calc 10.8 L eGFR 12 L* BUN/Creatinine Ratio 11 L Glucose 116 H Calculated Osmolality 281 Calcium 8.4 Corrected Calcium 9.0 Phosphorus 3.7 Lactate Dehydrogenase 453 H Albumin 3.3 L Pericard Color Yellow Pericard Appearance Clear Pericard WBC 6 Pericard RBC 2000.000 Pericar Polynuclear WBC 16.6 Pericar Mononuclear WBC 83.4 Pericard Total Protein 4 Pericardial LDH 216 Pericardial Glucose 147 Pericardial Amylase 47 ABG Interpretation ABG results: 04/09/25 08:41 ABG pH 7.31 L ABG pCO2 40 ABG pO2 78 L ABG HCO3 20 ABG O2 Saturation 96 ABG Base Excess -6 L Quality Measures Quality Measures VTE prophylaxis Assessment & Plan Assessment Current Active Medications: Generic Name Dose Route Start Last Admin Trade Name Freq PRN Reason Stop Dose Admin Acetaminophen 650 mg 04/08/25 21:29 Acetaminophen 325 Mg Tablet PO 05/08/25 21:28 Q6H PRN Fever >101.5 Acetaminophen 650 mg 04/08/25 21:34 Acetaminophen 325 Mg Tablet PO 05/08/25 21:33 Q6H PRN PAIN SCALE 1-3 (mild Bumetanide 2 mg 04/15/25 09:00 04/17/25 09:32 Bumetanide 0.5 Mg Tablet PO 05/15/25 08:59 Not Given QDAY TEMO Calcium Carbonate 600 mg 04/09/25 09:00 04/17/25 09:35 Calcium Carbonate 600 Mg Tablet PO 05/09/25 08:59 Not Given QDAY TEMO Carvedilol 25 mg 04/15/25 17:30 04/17/25 18:14 Carvedilol 12.5 Mg Tablet PO 05/15/25 17:29 25 mg BIDWM TEMO Administration Dextrose 25 ml 04/11/25 12:14 Dextrose 50%-Water Inj 50 Ml Syringe IV 05/11/25 12:13 Q15MIN PRN BG 50-70 responsive npo pt Dextrose 50 ml 04/11/25 12:14 Dextrose 50%-Water Inj 50 Ml Syringe IV 05/11/25 12:13 Q15MIN PRN BG <50 OR BG <70 & pt unresponsive Epoetin Adria 10,000 unit 04/18/25 08:00 Epoetin Adria-Epbx Inj 10,000 Unit/Ml Vial (Esrd) ND 04/18/25 08:01 X1 ONE Glucagon 1 mg 04/11/25 12:14 Glucagon Inj 1 Mg Vial IM Q15MIN PRN BG <70, and no IV access Heparin Sodium (Porcine) 5,000 unit 04/09/25 09:00 04/16/25 09:12 Heparin Sod Inj 5000 Unit/Ml Vial SC 04/23/25 08:59 5,000 unit Q12HR TEMO Administration Heparin Sodium (Porcine) 3,800 unit 04/11/25 16:53 04/15/25 11:05 Heparin Sod Inj 1000 Unit/Ml Vial 10 Ml INDWELLCAT 04/25/25 16:52 3,800 unit X1 PRN Administration DIALYSIS Albumin Human 25 gm in 100 mls @ 100 mls/min 04/09/25 15:50 Albuminar-25 Ivpb IV PRN PRN DIALYSIS Insulin Human Lispro 0 unit 04/11/25 17:00 04/17/25 18:13 Insulin Lispro (Admelog) 1 Unit/0.01 Ml Unit SC 05/11/25 16:59 1 unit AC TEMO Administration Protocol Losartan Potassium 50 mg 04/17/25 09:00 04/17/25 09:35 Losartan Potassium 25 Mg Tablet PO 05/17/25 08:59 Not Given QDAY TEMO Ondansetron HCl 4 mg 04/08/25 21:34 04/08/25 22:27 Ondansetron Inj 2 Mg/Ml Inj 2 Ml IVP 05/08/25 21:33 4 mg Q6H PRN Administration NAUSEA OR VOMITING Protocol Sennosides 1 tab 04/08/25 21:34 04/16/25 17:05 Senna Tablet PO 05/08/25 21:33 1 tab QDAY PRN Administration constipation Protocol Plan 54-year-old F with HTN, DM2, and CKD5 (small echogenic kidneys with cortical thinning), presenting with progressive dyspnea, anasarca, severe anemia, and hyperkalemia, found to have cardiomegaly with pericardial effusion, admitted for volume management and nephrology evaluation. Patient was upgraded to ICU for monitoring status post pericardiocentesis drain 04/17. NEURO Patient is awake, alert, and oriented x3, following commands, conversational. #No active problems CARDIO #Pericardial effusion, without evidence of temponade Echocardiogram normal size left ventricle with mild global hypokinesis, EF estimated 45%. Mild mitral regurgitation and tricuspid regurgitation Moderate to large Pericardial effusion with no evidence of tamponade Patient transferred for monitoring of drain in the ICU on 04/17. -Bedside withdrawal of 250 ml serosanguinous fluid with Dr. Prasad -Monitor hemodynamics and patient symptoms #New onset HFrEF, EF 45% decompensated heart failure BNP was >3280 on admission, CXR showed cardiomegaly, bilateral pleural fluid -Outpatient f/u [facility] cardiology for ischemic cardiomyopathy testing -Continue carvedilol -Strict intake and output measurement -Daily weight -Fluid restrictions PULM #Acute hypoxic respiratory failure, secondary to #Volume overload #Left pleural effusion Patient came in with shortness of breath, initially requiring 2-3L on nasal cannula but had rapid response 04/09 morning requiring higher O2, was placed on BiPAP. Respiratory status significantly improved since the admission -Thoracentesis will be attempted 04/18 -Proceed with dialysis -Follow up renal panels GI #No active problems NEPHRO #New ESRD Patient presented with creatinine 8.0 and GFR 6 Renal US showed small kidneys with bilateral renal cortical thinning. -Continue dialysis as scheduled URO #No active problems HEME #Acute on chronic anemia #Iron deficiency Currently no clinical history of bleeding. Iron level low at 38. s/p 2 PRBC this admission -Monitor CBC ENDO #History of type 2 diabetes Glucose on chem panels 160-180 Patient on metformin outpatient. Hemoglobin A1c 6.4% 04/12/25. -Recommend sliding scale insulin -Recommend AC blood glucose checks ID #No active problems MSK #No active problems SKIN #No active problems DVT prophylaxis: Heparin 5,000 U subQ GI prophylaxis: Not indicated Diet: Carb consistent Rodriguez: None Lines: Peripheral IV Antibiotics: None CODE STATUS: FULL Reason for ICU care: Pericardial drain care Lashanda Denise, PGY-3
[2025-04-17 13:39] LABS: Albumin, Serum 3.3 gm/dL (3.5-5.0); Anion Gap 10 (7-16); BUN/Creatinine Ratio 11 Ratio (12-20); Blood Urea Nitrogen 48 mg/dL (9-23); Calcium 8.4 mg/dL (8.3-10.6); Calcium (Corrected) 9.0 mg/dL (8.5-10.1); Carbon Dioxide 26.2 mMol/L (20.0-31.0); Chloride 98 mMol/L (98-107); Creatinine (Component) 4.3 mg/dL (0.6-1.3); Estimated Creatinine Clearance 10.8 mL/min (>60); Glucose 116 mg/dL (74-106); LDH (Lactate Dehydrogenase) 453 U/L (120-246); Osmolality,Calculated 281 (275-295); Phosphorous 3.7 mg/dL (2.4-5.1); Sodium 134 mMol/L (136-145); eGFR 12 See Note
[2025-04-17 13:40] LABS: Potassium 5.5 mMol/L (3.4-5.1)
[2025-04-17] MEDS: INSULIN LISPRO (AdmeLOG) 1 UNIT/0.01 ML UNIT SC (18:13)
[2025-04-18] VITALS (64 sets, daily range): BP systolic 84–159; BP diastolic 52–90; PULSE 64–78; RESP 0–31; TEMP 36.6–37.5; O2SAT 92–100
--- NOTE | 2025-04-18 00:06 | ESPR_ITS ---
RE: GEOFF MCKEON : 1970 DATE OF SERVICE: 04/17/2025 HISTORY OF PRESENT ILLNESS: Briefly, she is a 54-year-old Hebrew- speaking only woman with hypertension and diabetes, who presented to emergency room on 04/08/2025 with increasing shortness of breath and leg swelling. The patient had emergency dialysis on 04/09/2025 and last dialysis was Thursday. The patient underwent pericardial effusion today and about over 1 L of fluid was removed. She said that she is feeling much better. PHYSICAL EXAMINATION: General: She is awake, alert, and oriented. Vital Signs: Blood pressure 154/82, heart rate of 77, and O2 saturation of 97%. HEENT: Anicteric sclerae. Normocephalic. Neck: Supple. No JVD. Ches and Lungs: Symmetric expansion. Clear breath sounds. Cardiac: Without murmur. Abdomen: Soft and nontender. Extremities: No edema. LABORATORY DATA: Hemoglobin 8.6, WBC 4100, and platelet count 199,000. Sodium 134, potassium 5.5, CO2 is 26.2, BUN 48, creatinine 4.3, calcium 8.4, and glucose 116. ASSESSMENT: 1. New end-stage renal disease secondary to diabetic nephropathy and hypertensive nephrosclerosis with volume overload upon presentation. 2. Pericardial effusion secondary to volume overload, status post pericardiocentesis. 3. Anemia of chronic kidney disease. 4. Hypertension. 5. Diabetes. 6. Hyperkalemia, now improved. 7. Congestive heart failure versus fluid overload. 8. Secondary hyperparathyroidism with mild hypocalcemia, now improved. PLAN: The patient had successful pericardiocentesis today. About over a liter of fluid was removed. Next dialysis will be tomorrow. We will continue her Retacrit. We will continue her current medications. DT: 23:19:57 TT: 23:40:00 Ref: [id number] - TID: [id number] MTDD
[2025-04-18 06:42] LABS: Basophils # (Auto) 0.0 Thou/mm3 (0.0-0.2); Basophils % (Auto) 0 % (0-2.5); Eosinophils # (Auto) 0.0 Thou/mm3 (0.0-0.5); Eosinophils % (Auto) 0 % (0-10); Hematocrit 27.5 % (36.0-46.0); Hemoglobin 9.0 g/dL (12.0-16.0); Immature Granulocytes Auto 0.02 Thou/mm3 (0.00-0.00); Lymphocytes # (Auto) 0.5 Thou/mm3 (1.0-4.8); Lymphocytes % (Auto) 6 % (10-50); Mean Corpuscular HGB Conc 32.7 g/dl (31.0-37.0); Mean Corpuscular Hemoglobin 29.0 pg (25.0-35.0); Mean Corpuscular Volume 89 fL (80-100); Monocytes # (Auto) 0.6 Thou/mm3 (0.0-0.8); Monocytes % (Auto) 8 % (0-12); Neutrophils # (Auto) 6.8 Thou/mm3 (1.8-7.7); Neutrophils % (Auto) 86 % (37-80); Nucleated Red Blood Cell # 0.00 Thou/mm3 (0.00-0.00); Nucleated Red Blood Cell % 0 /100 WBC (0); Platelet Count 226 Thou/mm3 (140-440); RDW Standard Deviation 41.7 fL (36.4-46.3); Red Blood Count 3.10 Miln/mm3 (4.00-5.20); White Blood Count 8.0 Thou/mm3 (3.6-11.0)
[2025-04-18 07:11] LABS: Albumin, Serum 3.0 gm/dL (3.5-5.0); Anion Gap 11 (7-16); BUN/Creatinine Ratio 12 Ratio (12-20); Blood Urea Nitrogen 60 mg/dL (9-23); Calcium 8.5 mg/dL (8.3-10.6); Calcium (Corrected) 9.3 mg/dL (8.5-10.1); Carbon Dioxide 26.6 mMol/L (20.0-31.0); Chloride 97 mMol/L (98-107); Creatinine (Component) 4.9 mg/dL (0.6-1.3); Estimated Creatinine Clearance 9.5 mL/min (>60); Glucose 165 mg/dL (74-106); Osmolality,Calculated 291 (275-295); Phosphorous 4.3 mg/dL (2.4-5.1); Potassium 5.6 mMol/L (3.4-5.1); Sodium 135 mMol/L (136-145); eGFR 10 See Note
--- NOTE | 2025-04-18 07:52 | ESOP_ITS ---
RE: GEOFF MCKEON : 1970 DATE OF OPERATION: 04/17/2025 PROCEDURES PERFORMED: 1. Conscious sedation for 30-minute duration. 2. Pericardiocentesis and placement of the pericardiocentesis drainage catheter, pericardiotomy, CPT code 08314, and removal of 950 mL of serosanguineous fluid. PREOPERATIVE DIAGNOSES: Large pericardial effusion, early signs of cardiac tamponade, shortness of breath, symptomatic. POSTOPERATIVE DIAGNOSES: Successful pericardiocentesis, placement of drainage catheter, pericardiotomy catheter placement, and successful drainage of 950 mL of serosanguineous fluid. HISTORY AND INDICATIONS: The patient is a 54-year-old lady with history of renal failure, end-stage renal disease, now admitted to the hospital with severe shortness of breath, pleural effusion, and large pericardial effusion. After dialysis, she did not improve, continued to have severe shortness of breath and hypoxemia, hence pericardiotomy, pericardiocentesis, and drainage catheter placement was recommended. DESCRIPTION OF PROCEDURE: The patient was brought to the cardiac catheterization laboratory and informed consent was obtained for pericardiocentesis in Hungarian. Risks, benefits, and alternatives such as cardiac perforation, infection, etc., were explained. Informed consent was obtained from the patient. Conscious sedation given was 1 mg of Versed and 50 mcg of fentanyl. A subxiphoid approach was taken. The subxiphoid area was prepped in sterile fashion and given 1% Xylocaine local anesthesia. Echocardiogram guidance was used. Echocardiogram subxiphoid view showed evidence of large pericardial effusion. Under the guidance of the echocardiogram, echo guidance, an 18-gauge needle was used to enter the pericardial space. A guidewire was used and a pigtail catheter was placed. 950 mL of serosanguineous fluid was removed. Post-procedure echo showed complete resolution of pericardial effusion. SUMMARY: Successful pericardiocentesis, removal of 950 mL of fluid, which was sent for analysis, cultures, and cytology. COMPLICATIONS: None. BLOOD LOSS: Zero. DT: 12:23:33 TT: 13:17:00 Ref: [id number] - TID: [id number]
[2025-04-18] MEDS: INSULIN LISPRO (AdmeLOG) 1 UNIT/0.01 ML UNIT SC ×2 (08:02→17:17)
[2025-04-18] MEDS: BUMETANIDE 0.5 MG TABLET 2 MG PO (08:05)
[2025-04-18] MEDS: LOSARTAN POTASSIUM 25 MG TABLET 50 MG PO (08:05)
[2025-04-18] MEDS: CALCIUM CARBONATE 600 MG TABLET PO (08:05)
[2025-04-18] MEDS: EPOETIN ALFA-EPBX INJ 10,000 UNIT/ML VIAL (ESRD) 10000 UNIT SC (11:05)
[2025-04-18] MEDS: ALBUMIN HUMAN 25% IVPB 25 GM/100 ML BTL IV (11:56)
--- NOTE | 2025-04-18 15:58 | PC.SS ---
SS received call from Jessi at [facility] who provided patient's dialysis chair time Thursday at 4:15am. SS met with pt who states she is not employed and is agreeable to the dialysis chair schedule. Jessi from [facility] is aware.
--- NOTE | 2025-04-18 17:01 | PC.SS ---
Update: Patient received dialysis today. Dialysis chair time has been obtained. Nephrology consulting, Dr. Mcgovern. Drain remains in place, Dr. Nguyen is consulting.
--- NOTE | 2025-04-18 20:02 | ESPR_ITS ---
Documentation for date of: 04/18/25 Subjective Subjective Interval history: Patient is a 54-year-old Sinhala-speaking female with past medical history of hypertension, type 2 diabetes, and CKD secondary to diabetic nephropathy who was initially admitted on 04/08/2025 with worsening shortness of breath, bilateral lower extremity swelling, and abdominal discomfort for approximately 3 months, worse in the last month. She had dizziness, easy fatigability, an episode of vomiting, chronic dry cough for the past 2?3 weeks, and using multiple pillows to sleep. During this hospitalization she was found to have new onset HFrEF, EF 45%, with concomitant left pleural effusion, and moderate to large pericardial effusion with no evidence of tamponade. Patient was initiated on dialysis this admission, likely progressed diabetic nephropathy CKD. Pericardiocentesis was performed with 1059 mL fluid taken out on 04/17. 04/17/2025: Patient was upgraded to ICU for monitoring status post pericardiocentesis drain placed today by Dr. Prasad. 250 ml of reddish serosanguinous fluid was pulled out via syringe this evening around 6 pm. Patient is stable, BP 130s/60s, RR 17, HR 77, breathing comfortably on 2L nasal cannula. Patient reports no pain or discomfort at this time. 04/18/2025: Patient had approximately 50 ml output of yellow serosanguinous fluid with tissue clots at night. In 24 hours, there was approxmately 225 ml. Continue drain until <50 ml output in [address] Prasad. May need a few more days. Will assess for need of thoracentesis tomorrow. Exam Vital Signs Temp Pulse Resp BP Pulse Ox O2 Del Method O2 Flow Rate 98.6 F 75 19 142/90 H 97 Nasal Cannula 1.5 04/18/25 16:00 04/18/25 18:00 04/18/25 18:00 04/18/25 18:00 04/18/25 18:00 04/18/25 00:00 04/18/25 12:58 FiO2 2 04/18/25 10:00 Narrative Exam Physical Exam General: Awake and in no acute distress. Conversational and non-toxic appearing. HEENT: Normocephalic, atraumatic, mucous membranes moist. Nasal cannula in place. Heart: Regular rate and rhythm, normal S1 and S2, no murmurs. Pericardial drain in place central lower chest with stopcock to off position. No chest wall tenderness. Lungs: Clear to auscultation with no wheezing or crackles. Abdomen: Soft, nondistended, nontender, positive bowel sounds. ?No guarding or rebound tenderness. Neurologic: Alert and oriented x3, no gross neurological deficit, and patient able to move all 4 extremities. Extremities: Trace peripheral edema with significant raisining of the skin. Skin: No rash or ecchymoses. Objective Labs 04/19/25 04:51 04/19/25 04:51 Labs: Laboratory Results - last 24 hr 04/18/25 04:37 WBC 8.0 D RBC 3.10 L Hgb 9.0 L Hct 27.5 L MCV 89 MCH 29.0 MCHC 32.7 RDW Std Deviation 41.7 Plt Count 226 Neut % (Auto) 86 H Lymph % (Auto) 6 L [place] % (Auto) 8 Eos % (Auto) 0 Baso % (Auto) 0 Neut # (Auto) 6.8 Lymph # (Auto) 0.5 L [place] # (Auto) 0.6 Eos # (Auto) 0.0 Baso # (Auto) 0.0 Immature Gran # (Auto) 0.02 H Absolute Nucleated RBC 0.00 Immature Gran % 0 Nucleated RBC % 0 Sodium 135 L Potassium 5.6 H Chloride 97 L Carbon Dioxide 26.6 Anion Gap 11 BUN 60 H Creatinine 4.9 H* D Estim Creat Clear Calc 9.5 L eGFR 10 L* BUN/Creatinine Ratio 12 Glucose 165 H Calculated Osmolality 291 Calcium 8.5 Corrected Calcium 9.3 Phosphorus 4.3 Albumin 3.0 L ABG Interpretation ABG results: 04/09/25 08:41 ABG pH 7.31 L ABG pCO2 40 ABG pO2 78 L ABG HCO3 20 ABG O2 Saturation 96 ABG Base Excess -6 L Quality Measures Quality Measures VTE prophylaxis Assessment & Plan Assessment Current Active Medications: Generic Name Dose Route Start Last Admin Trade Name Freq PRN Reason Stop Dose Admin Acetaminophen 650 mg 04/08/25 21:29 Acetaminophen 325 Mg Tablet PO 05/08/25 21:28 Q6H PRN Fever >101.5 Acetaminophen 650 mg 04/08/25 21:34 Acetaminophen 325 Mg Tablet PO 05/08/25 21:33 Q6H PRN PAIN SCALE 1-3 (mild Bumetanide 2 mg 04/15/25 09:00 04/18/25 08:05 Bumetanide 0.5 Mg Tablet PO 05/15/25 08:59 2 mg QDAY TEMO Administration Calcium Carbonate 600 mg 04/09/25 09:00 04/18/25 08:05 Calcium Carbonate 600 Mg Tablet PO 05/09/25 08:59 600 mg QDAY TEMO Administration Carvedilol 25 mg 04/15/25 17:30 04/18/25 17:16 Carvedilol 12.5 Mg Tablet PO 05/15/25 17:29 25 mg BIDWM TEMO Administration Dextrose 25 ml 04/11/25 12:14 Dextrose 50%-Water Inj 50 Ml Syringe IV 05/11/25 12:13 Q15MIN PRN BG 50-70 responsive npo pt Dextrose 50 ml 04/11/25 12:14 Dextrose 50%-Water Inj 50 Ml Syringe IV 05/11/25 12:13 Q15MIN PRN BG <50 OR BG <70 & pt unresponsive Glucagon 1 mg 04/11/25 12:14 Glucagon Inj 1 Mg Vial IM Q15MIN PRN BG <70, and no IV access Heparin Sodium (Porcine) 5,000 unit 04/09/25 09:00 04/16/25 09:12 Heparin Sod Inj 5000 Unit/Ml Vial SC 04/23/25 08:59 5,000 unit Q12HR TEMO Administration Heparin Sodium (Porcine) 3,800 unit 04/11/25 16:53 04/15/25 11:05 Heparin Sod Inj 1000 Unit/Ml Vial 10 Ml INDWELLCAT 04/25/25 16:52 3,800 unit X1 PRN Administration DIALYSIS Albumin Human 25 gm in 100 mls @ 100 mls/min 04/09/25 15:50 04/18/25 11:56 Albuminar-25 Ivpb IV 100 mls/min PRN PRN Administration DIALYSIS Insulin Human Lispro 0 unit 04/11/25 17:00 04/18/25 17:17 Insulin Lispro (Admelog) 1 Unit/0.01 Ml Unit SC 05/11/25 16:59 2 unit AC TEMO Administration Protocol Losartan Potassium 50 mg 04/17/25 09:00 04/18/25 08:05 Losartan Potassium 25 Mg Tablet PO 05/17/25 08:59 50 mg QDAY TEMO Administration Ondansetron HCl 4 mg 04/08/25 21:34 04/08/25 22:27 Ondansetron Inj 2 Mg/Ml Inj 2 Ml IVP 05/08/25 21:33 4 mg Q6H PRN Administration NAUSEA OR VOMITING Protocol Sennosides 1 tab 04/08/25 21:34 04/16/25 17:05 Senna Tablet PO 05/08/25 21:33 1 tab QDAY PRN Administration constipation Protocol Plan 54-year-old F with HTN, DM2, and CKD5 (small echogenic kidneys with cortical thinning), presenting with progressive dyspnea, anasarca, severe anemia, and hyperkalemia, found to have cardiomegaly with pericardial effusion, admitted for volume management and nephrology evaluation. Patient was upgraded to ICU for monitoring status post pericardiocentesis drain 04/17. NEURO Patient is awake, alert, and oriented x3, following commands, conversational. #No active problems CARDIO #Pericardial effusion, without evidence of temponade Echocardiogram normal size left ventricle with mild global hypokinesis, EF estimated 45%. Mild mitral regurgitation and tricuspid regurgitation Moderate to large Pericardial effusion with no evidence of tamponade Patient transferred for monitoring of drain in the ICU on 04/17. -Continue drain until <50 ml output in 24 hours -Monitor hemodynamics and patient symptoms #New onset HFrEF, EF 45% decompensated heart failure BNP was >3280 on admission, CXR showed cardiomegaly, bilateral pleural fluid -Outpatient f/u [facility] cardiology for ischemic cardiomyopathy testing -Continue carvedilol -Strict intake and output measurement -Daily weight -Fluid restrictions PULM #Acute hypoxic respiratory failure, secondary to #Volume overload #Left pleural effusion Patient came in with shortness of breath, initially requiring 2-3L on nasal cannula but had rapid response 04/09 morning requiring higher O2, was placed on BiPAP. Respiratory status significantly improved since the admission -Thoracentesis will be attempted 04/18 -Proceed with dialysis -Follow up renal panels GI #No active problems NEPHRO #New ESRD Patient presented with creatinine 8.0 and GFR 6 Renal US showed small kidneys with bilateral renal cortical thinning. -Continue dialysis as scheduled URO #No active problems HEME #Acute on chronic anemia #Iron deficiency Currently no clinical history of bleeding. Iron level low at 38. s/p 2 PRBC this admission -Monitor CBC ENDO #History of type 2 diabetes Glucose on chem panels 160-180 Patient on metformin outpatient. Hemoglobin A1c 6.4% 04/12/25. -Recommend sliding scale insulin -Recommend AC blood glucose checks ID #No active problems MSK #No active problems SKIN #No active problems DVT prophylaxis: Heparin 5,000 U subQ GI prophylaxis: Not indicated Diet: Carb consistent Rodriguez: None Lines: Peripheral IV Antibiotics: None CODE STATUS: FULL Reason for ICU care: Pericardial drain care Lashanda Denise, PGY-3 Attending Provider Attestation/Addendum pt seen and examined with resident, agree with above. in brief this is a 54yo F admitted to the hospital with volume overload and ESRD requiring new HD. She developed a pericardial effusion as well and required pericardiocentesis with drain placement. She was admitted to the ICU for pericardial drain. she is AAOx4, pleasant and cooperative with exam, nl body habitus, few crackles on lung base, HRRR, no increase in WOB. pt has no complaints and contintues to have signifcant ouput from her drain. case d/w ICU team and cardiology labs, imaging, records reviewed ~37min required for eval, exam, review, intervention, discussion and formulation of POC for this acutely ill pt
--- NOTE | 2025-04-18 20:43 | ESPR_ITS ---
<Statement entered by Daksha Prasad MD - 04/20/25 23:05> The patient clinically examined by me continues to have pericardial effusion drainage will leave the catheter in place for now evaluated patient with resident physician PGY 2 agree with treatment plan recommendations documented Documentation for date of: 04/18/25 Subjective Subjective Interval history: No acute overnight events. Denies new or worsening symptoms. Denies fever, chills, headaches, chest pain, sob, cough, GI or urinary symptoms. Exam Vital Signs Temp Pulse Resp BP Pulse Ox O2 Del Method O2 Flow Rate 98.6 F 75 18 142/90 H 98 Nasal Cannula 1.5 04/18/25 16:00 04/18/25 19:49 04/18/25 19:49 04/18/25 18:00 04/18/25 19:49 04/18/25 00:00 04/18/25 12:58 FiO2 2 04/18/25 10:00 Narrative Exam General: Overweight lady, increased work of breathing. Neurologic: GCS 15. Alert and oriented x3, no gross neurological deficit, and patient able to move all 4 extremities. HEENT: Right IJ tunneled dialysis catheter. Normocephalic, atraumatic, mucous membranes moist. Pupils reactive to light. Heart: Regular rate and rhythm, normal S1 and S2, no murmurs. Lungs: Diminished breath sounds at the left lung base. Abdomen: Soft, nondistended, nontender, positive bowel sounds. No guarding or rebound tenderness. Extremities: Trace bilateral lower extremity pitting edema. 2+ radial and dorsalis pedis pulses bilaterally. Skin: Warm. Dry. No rash or ecchymoses. Objective Labs 04/18/25 04:37 04/18/25 04:37 Labs: Laboratory Results - last 24 hr 04/18/25 04:37 WBC 8.0 D RBC 3.10 L Hgb 9.0 L Hct 27.5 L MCV 89 MCH 29.0 MCHC 32.7 RDW Std Deviation 41.7 Plt Count 226 Neut % (Auto) 86 H Lymph % (Auto) 6 L [place] % (Auto) 8 Eos % (Auto) 0 Baso % (Auto) 0 Neut # (Auto) 6.8 Lymph # (Auto) 0.5 L [place] # (Auto) 0.6 Eos # (Auto) 0.0 Baso # (Auto) 0.0 Immature Gran # (Auto) 0.02 H Absolute Nucleated RBC 0.00 Immature Gran % 0 Nucleated RBC % 0 Sodium 135 L Potassium 5.6 H Chloride 97 L Carbon Dioxide 26.6 Anion Gap 11 BUN 60 H Creatinine 4.9 H* D Estim Creat Clear Calc 9.5 L eGFR 10 L* BUN/Creatinine Ratio 12 Glucose 165 H Calculated Osmolality 291 Calcium 8.5 Corrected Calcium 9.3 Phosphorus 4.3 Albumin 3.0 L ABG Interpretation ABG results: 04/09/25 08:41 ABG pH 7.31 L ABG pCO2 40 ABG pO2 78 L ABG HCO3 20 ABG O2 Saturation 96 ABG Base Excess -6 L Quality Measures Quality Measures VTE prophylaxis Assessment & Plan Assessment Current Active Medications: Generic Name Dose Route Start Last Admin Trade Name Freq PRN Reason Stop Dose Admin Acetaminophen 650 mg 04/08/25 21:29 Acetaminophen 325 Mg Tablet PO 05/08/25 21:28 Q6H PRN Fever >101.5 Acetaminophen 650 mg 04/08/25 21:34 Acetaminophen 325 Mg Tablet PO 05/08/25 21:33 Q6H PRN PAIN SCALE 1-3 (mild Bumetanide 2 mg 04/15/25 09:00 04/18/25 08:05 Bumetanide 0.5 Mg Tablet PO 05/15/25 08:59 2 mg QDAY TEMO Administration Calcium Carbonate 600 mg 04/09/25 09:00 04/18/25 08:05 Calcium Carbonate 600 Mg Tablet PO 05/09/25 08:59 600 mg QDAY TEMO Administration Carvedilol 25 mg 04/15/25 17:30 04/18/25 17:16 Carvedilol 12.5 Mg Tablet PO 05/15/25 17:29 25 mg BIDWM TEMO Administration Dextrose 25 ml 04/11/25 12:14 Dextrose 50%-Water Inj 50 Ml Syringe IV 05/11/25 12:13 Q15MIN PRN BG 50-70 responsive npo pt Dextrose 50 ml 04/11/25 12:14 Dextrose 50%-Water Inj 50 Ml Syringe IV 05/11/25 12:13 Q15MIN PRN BG <50 OR BG <70 & pt unresponsive Glucagon 1 mg 04/11/25 12:14 Glucagon Inj 1 Mg Vial IM Q15MIN PRN BG <70, and no IV access Heparin Sodium (Porcine) 5,000 unit 04/09/25 09:00 04/16/25 09:12 Heparin Sod Inj 5000 Unit/Ml Vial SC 04/23/25 08:59 5,000 unit Q12HR TEMO Administration Heparin Sodium (Porcine) 3,800 unit 04/11/25 16:53 04/15/25 11:05 Heparin Sod Inj 1000 Unit/Ml Vial 10 Ml INDWELLCAT 04/25/25 16:52 3,800 unit X1 PRN Administration DIALYSIS Albumin Human 25 gm in 100 mls @ 100 mls/min 04/09/25 15:50 04/18/25 11:56 Albuminar-25 Ivpb IV 100 mls/min PRN PRN Administration DIALYSIS Insulin Human Lispro 0 unit 04/11/25 17:00 04/18/25 17:17 Insulin Lispro (Admelog) 1 Unit/0.01 Ml Unit SC 05/11/25 16:59 2 unit AC TEMO Administration Protocol Losartan Potassium 50 mg 04/17/25 09:00 04/18/25 08:05 Losartan Potassium 25 Mg Tablet PO 05/17/25 08:59 50 mg QDAY TEMO Administration Ondansetron HCl 4 mg 04/08/25 21:34 04/08/25 22:27 Ondansetron Inj 2 Mg/Ml Inj 2 Ml IVP 05/08/25 21:33 4 mg Q6H PRN Administration NAUSEA OR VOMITING Protocol Sennosides 1 tab 04/08/25 21:34 04/16/25 17:05 Senna Tablet PO 05/08/25 21:33 1 tab QDAY PRN Administration constipation Protocol Plan 54-year-old female with a past medical history of hypertension, CKD, type 2 diabetes mellitus who presented to the ED on 04/08/2025 with worsening shortness of breath, bilateral lower extremity swelling and abdominal pain for approximately 3 months. Cardiology was consulted for management of the patient's pericardial effusion. 1. Large pericardial effusion without evidence of tamponade 2. S/p pericardiocentesis, likely uremic versus less likely viral 3. New onset CHF, EF 45% likely in settings of pericardial effusion 4. Acute hypoxemic respiratory failure secondary to above and large pleural effusion 5. ESRD, new hemodialysis. A patient presented with significant shortness of breath and a BNP >3000. Initial diuresis was complicated by transfusion of 2 units of PRBCs, causing fluid overload and worsening dyspnea. Contributing factors include congestive heart failure, moderate to large pericardial effusion, and ischemia from an NSTEMI. Exam showed trace bilateral lower extremity edema. Echocardiogram on 04/08/2025 demonstrated mild global LV hypokinesis with an EF of 45%, mild mitral and tricuspid regurgitation, and a moderate to large pericardial effusion (~1?L) without overt tamponade, though mild hemodynamic compromise was noted. Shortness of breath remained significant despite hemodialysis on 04/15/2025. The patient underwent pericardiocentesis on 04/17/2025, with 900?cc of fluid removed; fluid analysis suggested a viral etiology, however uremic pericardial effusion highly suspected given her presentation. A pericardial drain remains in place, with ~250?cc collected overnight. Drainage is recommended to continue for at least two more days or until output is <100?cc in 24 hours. Thoracentesis and continued hemodialysis are also recommended. Dyspnea is expected to improve with relief of impaired ventricular filling following drainage, as is heart function. Continue with inpatient hemodialysis. Maintain K>4.0 and Mag>2.0. #High anion gap metabolic acidosis (resolved) #Uremia (resolved) #Hyperkalemia (resolved) #Normocytic anemia (resolved) #Smb-balqihf-wtmordedh diabetes mellitus #Hypertension The remainder of the patient's problems will be managed per the patient's primary team. Case was discussed with attending physician, Dr. Prasad. Donald Hitchcock, PGY II This document was transcribed using voice recognition technology. Minor inaccuracies may be present.
[2025-04-19] VITALS (36 sets, daily range): BP systolic 117–174; BP diastolic 64–97; PULSE 68–76; RESP 7–97; TEMP 36.6–37.6; O2SAT 76–99; BMI 27.8; BMI 27.5
[2025-04-19 06:10] LABS: Basophils # (Auto) 0.0 Thou/mm3 (0.0-0.2); Basophils % (Auto) 0 % (0-2.5); Eosinophils # (Auto) 0.1 Thou/mm3 (0.0-0.5); Eosinophils % (Auto) 1 % (0-10); Hematocrit 23.5 % (36.0-46.0); Immature Granulocytes Auto 0.04 Thou/mm3 (0.00-0.00); Lymphocytes # (Auto) 1.2 Thou/mm3 (1.0-4.8); Lymphocytes % (Auto) 17 % (10-50); Mean Corpuscular HGB Conc 32.3 g/dl (31.0-37.0); Mean Corpuscular Hemoglobin 28.9 pg (25.0-35.0); Mean Corpuscular Volume 89 fL (80-100); Monocytes # (Auto) 0.7 Thou/mm3 (0.0-0.8); Monocytes % (Auto) 11 % (0-12); Neutrophils # (Auto) 4.9 Thou/mm3 (1.8-7.7); Neutrophils % (Auto) 71 % (37-80); Nucleated Red Blood Cell # 0.00 Thou/mm3 (0.00-0.00); Nucleated Red Blood Cell % 0 /100 WBC (0); Platelet Count 164 Thou/mm3 (140-440); RDW Standard Deviation 43.8 fL (36.4-46.3); Red Blood Count 2.63 Miln/mm3 (4.00-5.20); White Blood Count 7.0 Thou/mm3 (3.6-11.0)
[2025-04-19 06:12] LABS: Hemoglobin 7.6 g/dL (12.0-16.0)
[2025-04-19 06:40] LABS: Albumin, Serum 3.1 gm/dL (3.5-5.0); Anion Gap 10 (7-16); BUN/Creatinine Ratio 12 Ratio (12-20); Blood Urea Nitrogen 47 mg/dL (9-23); Calcium 8.0 mg/dL (8.3-10.6); Calcium (Corrected) 8.7 mg/dL (8.5-10.1); Carbon Dioxide 26.6 mMol/L (20.0-31.0); Chloride 98 mMol/L (98-107); Creatinine (Component) 3.9 mg/dL (0.6-1.3); Estimated Creatinine Clearance 12.3 mL/min (>60); Glucose 141 mg/dL (74-106); Osmolality,Calculated 284 (275-295); Phosphorous 2.8 mg/dL (2.4-5.1); Potassium 4.8 mMol/L (3.4-5.1); Sodium 135 mMol/L (136-145); eGFR 13 See Note
--- NOTE | 2025-04-19 08:39 | XR_ITS ---
Examination: AP chest single view Technique one AP portable upright chest single view Date and time: April 19, 2025 0909 hours, comparison April 15, 2025 INDICATIONS: Status post chest tube placement for left pleural fluid FINDINGS: Mild enlargement cardiac contour Prominent vascular congestion Edema versus pneumonia at the lung bases Right internal jugular dialysis catheter tip SVC IMPRESSION: Mild chronic heart failure pattern Left hemithorax chest tube, tip projecting medially with decrease in left pleural fluid, no pneumothorax
--- NOTE | 2025-04-19 08:53 | PD.RESPROC ---
PROCEDURES: Procedure Date / Time 04/19/25 0853 Thoracentesis Indication(s): symptomatic Pleural Effusion Informed consent obtained from: patient Time out done, and the following verified: correct patient, side and site, procedure and patient position Ultrasound used: Yes Procedure location: lt. post pleual space Amount pleural fluid removed (ml): 700 EBL(ml): 1 Procedure comment: PROCEDURE SUMMARY: Informed consent was obtained from the patient with consent form signed and placed in the chart. Bedside US was performed which identified an appropriate pocket sufficient for pleural drainage on the left side. The appropriate side was confirmed and marked with pen. Alcohol-based cook mess was used, surgical hair net was worn, and mask was worn. Sterile gown and sterile gloves were donned in sterile technique and kept on throughout the procedure. Time out was performed confirming patient name, age, site, and procedure with bedside RN. The patient was prepped and draped in a sterile manner using chlorhexidine scrub. 1% lidocaine was used to anesthesize the skin, subcutaneous tissue, superior aspect of the rib periosteum and parietal pleura. A finder needle was then introduced over the superior aspect of the rib to locate the pleural fluid; straw-colored pleural fluid was aspirated at a depth of approximately 1 cm. The Wron-l-Cgmupgil needle was then introduced through the skin incision into the pleural space using negative aspiration pressure. The thoracentesis catheter was then threaded without difficulty. Pleural fluid was subsequently drained into an evacuation suction bottle with the total amount measuring 700 ml. The catheter was then removed with pressure held to the site until no further bleeding or leakage was noted. No immediate complications were noted during the procedure and the patient tolerated the procedure very well. A post-procedure chest X-ray is pending at the time of this note. The fluid will be sent for studies including LDH, amylase, glucose, protein, cell count, culture, anaerobic culture, and gram stain. Estimated blood loss is 0 mL. Procedure completed with the supervising attending spanish language lecturer, Dr. Gray. Lashanda Denise, PGY-3 Attending note: i was present for the entire procedure and available for assitance
[2025-04-19 09:10] LABS: LDH (Lactate Dehydrogenase) 178 U/L (120-246)
[2025-04-19] MEDS: LOSARTAN POTASSIUM 25 MG TABLET 50 MG PO (09:57)
[2025-04-19] MEDS: CALCIUM CARBONATE 600 MG TABLET PO (09:57)
[2025-04-19] MEDS: BUMETANIDE 0.5 MG TABLET 2 MG PO (09:58)
--- NOTE | 2025-04-19 10:58 | PD.RESPRO ---
Documentation for date of: 04/19/25 Subjective Subjective Interval history: Patient is a 54-year-old Telugu-speaking female with past medical history of hypertension, type 2 diabetes, and CKD secondary to diabetic nephropathy who was initially admitted on 04/08/2025 with worsening shortness of breath, bilateral lower extremity swelling, and abdominal discomfort for approximately 3 months, worse in the last month. She had dizziness, easy fatigability, an episode of vomiting, chronic dry cough for the past 2?3 weeks, and using multiple pillows to sleep. During this hospitalization she was found to have new onset HFrEF, EF 45%, with concomitant left pleural effusion, and moderate to large pericardial effusion with no evidence of tamponade. Patient was initiated on dialysis this admission, likely progressed diabetic nephropathy CKD. Pericardiocentesis was performed with 1059 mL fluid taken out on 04/17. 04/17/2025: Patient was upgraded to ICU for monitoring status post pericardiocentesis drain placed today by Dr. Prasad. 250 ml of reddish serosanguinous fluid was pulled out via syringe this evening around 6 pm. Patient is stable, BP 130s/60s, RR 17, HR 77, breathing comfortably on 2L nasal cannula. Patient reports no pain or discomfort at this time. 04/18/2025: Patient had approximately 50 ml output of yellow serosanguinous fluid with tissue clots at night. In 24 hours, there was approxmately 225 ml. Continue drain until <50 ml output in [address] Prasad. May need a few more days. Will assess for need of thoracentesis tomorrow. 04/19/2025: Overnight patient had about 50 ml output straw colored serosanguinous fluid in the drain bag. Today left-sided thoracentesis was done, withdrew about 700 ml serous fluid. Ordered pleural fluid analyses and cytology. Patient remained on room air with stable vitals throughout. Patient denied any chest discomfort and pain and tolerated the procedure well. CXR confirmed no pneumothorax and improvement of the left lower lung field. Continue pericardial catheter until discontinued by Cardiology. Exam Vital Signs Temp Pulse Resp BP Pulse Ox O2 Del Method O2 Flow Rate 98.0 F 73 19 138/64 H 96 Nasal Cannula 1.5 04/19/25 07:00 04/19/25 10:00 04/19/25 10:00 04/19/25 10:00 04/19/25 10:00 04/18/25 00:00 04/18/25 12:58 FiO2 2 04/18/25 10:00 Narrative Exam Physical Exam General: Awake and in no acute distress. Conversational and non-toxic appearing. HEENT: Normocephalic, atraumatic, mucous membranes moist. Heart: Regular rate and rhythm, normal S1 and S2, no murmurs. Pericardial drain in place central lower chest with stopcock to on position. No chest wall tenderness. Lungs: Clear to auscultation with no wheezing or crackles. Abdomen: Soft, nondistended, nontender, positive bowel sounds. ?No guarding or rebound tenderness. Neurologic: Alert and oriented x3, no gross neurological deficit, and patient able to move all 4 extremities. Extremities: No peripheral edema with significant raisining of the skin. Skin: No rash or ecchymoses. Objective Labs 04/19/25 04:51 04/19/25 04:51 Labs: Laboratory Results - last 24 hr 04/19/25 04:51 WBC 7.0 RBC 2.63 L Hgb 7.6 L Hct 23.5 L MCV 89 MCH 28.9 MCHC 32.3 RDW Std Deviation 43.8 Plt Count 164 D Neut % (Auto) 71 Lymph % (Auto) 17 [place] % (Auto) 11 Eos % (Auto) 1 Baso % (Auto) 0 Neut # (Auto) 4.9 Lymph # (Auto) 1.2 [place] # (Auto) 0.7 Eos # (Auto) 0.1 Baso # (Auto) 0.0 Immature Gran # (Auto) 0.04 H Absolute Nucleated RBC 0.00 Immature Gran % 1 H Nucleated RBC % 0 Sodium 135 L Potassium 4.8 D Chloride 98 Carbon Dioxide 26.6 Anion Gap 10 BUN 47 H Creatinine 3.9 H D Estim Creat Clear Calc 12.3 L eGFR 13 L* BUN/Creatinine Ratio 12 Glucose 141 H Calculated Osmolality 284 Calcium 8.0 L Corrected Calcium 8.7 Phosphorus 2.8 Lactate Dehydrogenase 178 Albumin 3.1 L ABG Interpretation ABG results: 04/09/25 08:41 ABG pH 7.31 L ABG pCO2 40 ABG pO2 78 L ABG HCO3 20 ABG O2 Saturation 96 ABG Base Excess -6 L Quality Measures Quality Measures VTE prophylaxis Assessment & Plan Assessment Current Active Medications: Generic Name Dose Route Start Last Admin Trade Name Lonnie PRN Reason Stop Dose Admin Acetaminophen 650 mg 04/08/25 21:29 Acetaminophen 325 Mg Tablet PO 05/08/25 21:28 Q6H PRN Fever >101.5 Acetaminophen 650 mg 04/08/25 21:34 Acetaminophen 325 Mg Tablet PO 05/08/25 21:33 Q6H PRN PAIN SCALE 1-3 (mild Bumetanide 2 mg 04/15/25 09:00 04/19/25 09:58 Bumetanide 0.5 Mg Tablet PO 05/15/25 08:59 2 mg QDAY TEMO Administration Calcium Carbonate 600 mg 04/09/25 09:00 04/19/25 09:57 Calcium Carbonate 600 Mg Tablet PO 05/09/25 08:59 600 mg QDAY TEMO Administration Carvedilol 25 mg 04/15/25 17:30 04/19/25 09:58 Carvedilol 12.5 Mg Tablet PO 05/15/25 17:29 25 mg BIDWM TEMO Administration Dextrose 25 ml 04/11/25 12:14 Dextrose 50%-Water Inj 50 Ml Syringe IV 05/11/25 12:13 Q15MIN PRN BG 50-70 responsive npo pt Dextrose 50 ml 04/11/25 12:14 Dextrose 50%-Water Inj 50 Ml Syringe IV 05/11/25 12:13 Q15MIN PRN BG <50 OR BG <70 & pt unresponsive Glucagon 1 mg 04/11/25 12:14 Glucagon Inj 1 Mg Vial IM Q15MIN PRN BG <70, and no IV access Heparin Sodium (Porcine) 5,000 unit 04/09/25 09:00 04/16/25 09:12 Heparin Sod Inj 5000 Unit/Ml Vial SC 04/23/25 08:59 5,000 unit Q12HR TEMO Administration Heparin Sodium (Porcine) 3,800 unit 04/11/25 16:53 04/15/25 11:05 Heparin Sod Inj 1000 Unit/Ml Vial 10 Ml INDWELLCAT 04/25/25 16:52 3,800 unit X1 PRN Administration DIALYSIS Albumin Human 25 gm in 100 mls @ 100 mls/min 04/09/25 15:50 04/18/25 11:56 Albuminar-25 Ivpb IV 100 mls/min PRN PRN Administration DIALYSIS Insulin Human Lispro 0 unit 04/11/25 17:00 04/19/25 08:32 Insulin Lispro (Admelog) 1 Unit/0.01 Ml Unit SC 05/11/25 16:59 Not Given AC TEMO Protocol Losartan Potassium 50 mg 04/17/25 09:00 04/19/25 09:57 Losartan Potassium 25 Mg Tablet PO 05/17/25 08:59 50 mg QDAY TEMO Administration Ondansetron HCl 4 mg 04/08/25 21:34 04/08/25 22:27 Ondansetron Inj 2 Mg/Ml Inj 2 Ml IVP 05/08/25 21:33 4 mg Q6H PRN Administration NAUSEA OR VOMITING Protocol Sennosides 1 tab 04/08/25 21:34 04/16/25 17:05 Senna Tablet PO 05/08/25 21:33 1 tab QDAY PRN Administration constipation Protocol Plan 54-year-old F with HTN, DM2, and CKD5 (small echogenic kidneys with cortical thinning), presenting with progressive dyspnea, anasarca, severe anemia, and hyperkalemia, found to have cardiomegaly with pericardial effusion, admitted for volume management and nephrology evaluation. Patient was upgraded to ICU for monitoring status post pericardiocentesis drain 04/17. NEURO Patient is awake, alert, and oriented x3, following commands, conversational. #No active problems CARDIO #Pericardial effusion, without evidence of temponade Echocardiogram normal size left ventricle with mild global hypokinesis, EF estimated 45%. Mild mitral regurgitation and tricuspid regurgitation Moderate to large Pericardial effusion with no evidence of tamponade Patient transferred for monitoring of drain in the ICU on 04/17. Initial procedure withdrew 950 ml of red serosanguinous fluid. 04/18 - 540 ml 04/19 - 225 ml -Continue drain until <50 ml output in 24 hours -Monitor hemodynamics and patient symptoms #New onset HFrEF, EF 45% decompensated heart failure BNP was >3280 on admission, CXR showed cardiomegaly, bilateral pleural fluid present Patient has reduced ejection fraction of 45%. -Outpatient f/u [facility] cardiology for ischemic cardiomyopathy testing -Continue carvedilol 25 mg BID with meals -Strict intake and output measurement -Daily weight -Fluid restrictions 1500 ml PULM #Acute hypoxic respiratory failure - resolved #Volume overload - resolved #Left pleural effusion s/p thoracentesis 04/19 Patient came in with shortness of breath, initially requiring 2-3L on nasal cannula but had rapid response 04/09 morning requiring higher O2, was placed on BiPAP. Respiratory status significantly improved since the admission and initiation of dialysis with fluid removals. 04/19 left thoracentesis completed with removal of 700 ml straw colored serous fluid sent to lab -Proceed with dialysis -Pleural fluid amylase, culture and gram stain, glucose, LDH, cell count, and protein ordered -Cytology form sent for pathology review GI #No active problems NEPHRO #New ESRD, likely progressed diabetic nephropathy Patient presented with creatinine 8.0 and GFR 6 Renal US showed small kidneys with bilateral renal cortical thinning. Patient is set up for outpatient dialysis chair Tue/Diana/Sat. -Continue dialysis as scheduled three times weekly URO #No active problems HEME #Acute on chronic anemia #Iron deficiency Currently no clinical history of bleeding. Iron level low at 38. s/p 2 PRBC this admission 04/19 Drop in hemoglobin 7.6 noted, has been around 8.0 range this admission. Will monitor. -Monitor CBC -Transfuse if <7.0 ENDO #History of type 2 diabetes Glucose on chem panels 160-180 Patient on metformin outpatient. Hemoglobin A1c 6.4% 04/12/25. -Continue sliding scale insulin AC -Continue AC blood glucose checks ID #No active problems MSK #No active problems SKIN #No active problems DVT prophylaxis: Heparin 5,000 U subQ GI prophylaxis: Not indicated Diet: Carb consistent, renal, 1500 ml fluid restriction Rodriguez: None Lines: Peripheral IV Antibiotics: None CODE STATUS: FULL Reason for ICU care: Pericardial drain care Patient seen under the supervision of attending special education teachers, Dr. Gray. Lashanda Denise, PGY-3 Attending Provider Attestation/Addendum pt seen and examined, agree with above. in brief this is a 54yo F admitted to the ICU for pericardial drain. She had a large pericardial effusion that required drain. She cont to have output through her drain though less then yesterday. She is hemodynamically stable and on RA, her exam shows a few crackles at base, HRRR, no increase in WOB, abd s/nt/bs+. She wants to go home. She had a moderate pleural effusion b/l L>R. She underwent thoracentesis today with ~700cc removed and sent for fluid analysis. Once her drain puts out <100cc will be removed by cardiology. case d/w ICU team labs, imaging, records reviewed ~ 36min required for eval, exam, review, intervention, discussion and formulation of POC for this pt
[2025-04-19 11:24] LABS: Pleural Fluid Mononuclear 83.3 %; Pleural Fluid Polynuclear 16.7 %; Pleural Fluid RBC 0 /cmm; Pleural Fluid WBC 311 /cmm
[2025-04-19 11:27] LABS: Pleural Fluid Appearance Hazy; Pleural Fluid Color Straw
[2025-04-19 11:33] LABS: Amylase,Pleural Fluid 32 IU/L; Glucose,Pleural Fluid 158 mg/dL; LDH,Pleural Fluid 141 IU/L; Protein Total,Pleural Fluid 2.4 g/dL
[2025-04-19] MEDS: INSULIN LISPRO (AdmeLOG) 1 UNIT/0.01 ML UNIT SC (12:07)
[2025-04-19] MEDS: HEPARIN SOD INJ 5000 UNIT/ML VIAL SC ×2 (12:08→22:05)
--- NOTE | 2025-04-19 16:31 | PC.SS ---
Update: Patient on room air. P.O. feeding. Vitals are stable. Dr. Prasad consulting. Drain remains in place.
--- NOTE | 2025-04-19 18:12 | ESPR_ITS ---
Documentation for date of: 04/19/25 Subjective Subjective Interval history: Patient seen and examined in ICU, received dialysis downgrade from application manager team. 54-year-old female past medical history of hypertension, type 2 diabetes and CKD secondary to diabetic nephropathy admitted for progression of CKD with DEBBY, new onset dialysis. During hospitalization found to have new onset heart failure with reduced ejection fraction EF 45% with concomitant pleural effusion, left side and moderate large pericardial effusion was upgraded to intensive care unit on 04/17 status post pericardiocentesis with pericardial drain likely attributed to uremic pericardial effusion. Patient's pericardial drain was discontinued earlier today and patient deemed stable to be downgraded. At bedside patient has no current complaints reports she is feeling well, also had thoracentesis done earlier this morning about 700 cc fluid removed. Last dialysis session yesterday 04/18 with 1 L fluid removal. Exam Vital Signs Temp Pulse Resp BP Pulse Ox O2 Del Method O2 Flow Rate 99.3 F 68 18 152/90 H 98 Nasal Cannula 1.5 04/19/25 16:00 04/19/25 17:01 04/19/25 17:01 04/19/25 17:01 04/19/25 17:01 04/18/25 00:00 04/18/25 12:58 FiO2 2 04/18/25 10:00 Narrative Exam Physical Exam General: Awake and in no acute distress. Conversational and non-toxic appearing. HEENT: Normocephalic, atraumatic, mucous membranes moist. Heart: Regular rate and rhythm, normal S1 and S2, no murmurs. No chest wall tenderness. Lungs: Clear to auscultation with no wheezing or crackles. Abdomen: Soft, nondistended, nontender, positive bowel sounds. ?No guarding or rebound tenderness. Neurologic: Alert and oriented x3, no gross neurological deficit, and patient able to move all 4 extremities. Extremities: No significant peripheral edema. Skin: No rash or ecchymoses. Objective Labs 04/20/25 05:16 04/20/25 05:16 Labs: Laboratory Results - last 24 hr 04/19/25 04/19/25 04:51 08:15 WBC 7.0 RBC 2.63 L Hgb 7.6 L Hct 23.5 L MCV 89 MCH 28.9 MCHC 32.3 RDW Std Deviation 43.8 Plt Count 164 D Neut % (Auto) 71 Lymph % (Auto) 17 [place] % (Auto) 11 Eos % (Auto) 1 Baso % (Auto) 0 Neut # (Auto) 4.9 Lymph # (Auto) 1.2 [place] # (Auto) 0.7 Eos # (Auto) 0.1 Baso # (Auto) 0.0 Immature Gran # (Auto) 0.04 H Absolute Nucleated RBC 0.00 Immature Gran % 1 H Nucleated RBC % 0 Sodium 135 L Potassium 4.8 D Chloride 98 Carbon Dioxide 26.6 Anion Gap 10 BUN 47 H Creatinine 3.9 H D Estim Creat Clear Calc 12.3 L eGFR 13 L* BUN/Creatinine Ratio 12 Glucose 141 H Calculated Osmolality 284 Calcium 8.0 L Corrected Calcium 8.7 Phosphorus 2.8 Lactate Dehydrogenase 178 Albumin 3.1 L Pleural Color Straw Pleural Appearance Hazy Pleural WBC 311 Pleural RBC 0 Pleural Polynuclear WBC 16.7 Pleural Mononuclear WBC 83.3 Pleural Total Protein 2.4 Pleural LDH 141 Pleural Glucose 158 Pleural Amylase 32 ABG Interpretation ABG results: 04/09/25 08:41 ABG pH 7.31 L ABG pCO2 40 ABG pO2 78 L ABG HCO3 20 ABG O2 Saturation 96 ABG Base Excess -6 L Quality Measures Quality Measures VTE prophylaxis Assessment & Plan Assessment Current Active Medications: Generic Name Dose Route Start Last Admin Trade Name Freq PRN Reason Stop Dose Admin Acetaminophen 650 mg 04/08/25 21:29 Acetaminophen 325 Mg Tablet PO 05/08/25 21:28 Q6H PRN Fever >101.5 Acetaminophen 650 mg 04/08/25 21:34 Acetaminophen 325 Mg Tablet PO 05/08/25 21:33 Q6H PRN PAIN SCALE 1-3 (mild Bumetanide 2 mg 04/15/25 09:00 04/19/25 09:58 Bumetanide 0.5 Mg Tablet PO 05/15/25 08:59 2 mg QDAY TEMO Administration Calcium Carbonate 600 mg 04/09/25 09:00 04/19/25 09:57 Calcium Carbonate 600 Mg Tablet PO 05/09/25 08:59 600 mg QDAY TEMO Administration Carvedilol 25 mg 04/15/25 17:30 04/19/25 09:58 Carvedilol 12.5 Mg Tablet PO 05/15/25 17:29 25 mg BIDWM TEMO Administration Dextrose 25 ml 04/11/25 12:14 Dextrose 50%-Water Inj 50 Ml Syringe IV 05/11/25 12:13 Q15MIN PRN BG 50-70 responsive npo pt Dextrose 50 ml 04/11/25 12:14 Dextrose 50%-Water Inj 50 Ml Syringe IV 05/11/25 12:13 Q15MIN PRN BG <50 OR BG <70 & pt unresponsive Glucagon 1 mg 04/11/25 12:14 Glucagon Inj 1 Mg Vial IM Q15MIN PRN BG <70, and no IV access Heparin Sodium (Porcine) 5,000 unit 04/09/25 09:00 04/19/25 12:08 Heparin Sod Inj 5000 Unit/Ml Vial SC 04/23/25 08:59 5,000 unit Q12HR TEMO Administration Heparin Sodium (Porcine) 3,800 unit 04/11/25 16:53 04/15/25 11:05 Heparin Sod Inj 1000 Unit/Ml Vial 10 Ml INDWELLCAT 04/25/25 16:52 3,800 unit X1 PRN Administration DIALYSIS Albumin Human 25 gm in 100 mls @ 100 mls/min 04/09/25 15:50 04/18/25 11:56 Albuminar-25 Ivpb IV 100 mls/min PRN PRN Administration DIALYSIS Insulin Human Lispro 0 unit 04/11/25 17:00 04/19/25 17:21 Insulin Lispro (Admelog) 1 Unit/0.01 Ml Unit SC 05/11/25 16:59 Not Given AC [facility] Protocol Losartan Potassium 50 mg 04/17/25 09:00 04/19/25 09:57 Losartan Potassium 25 Mg Tablet PO 05/17/25 08:59 50 mg QDAY TEMO Administration Ondansetron HCl 4 mg 04/08/25 21:34 04/08/25 22:27 Ondansetron Inj 2 Mg/Ml Inj 2 Ml IVP 05/08/25 21:33 4 mg Q6H PRN Administration NAUSEA OR VOMITING Protocol Sennosides 1 tab 04/08/25 21:34 04/16/25 17:05 Senna Tablet PO 05/08/25 21:33 1 tab QDAY PRN Administration constipation Protocol Plan Plan: Serena Crowley is a 54F with a pmhx significant for HTN, T2DM, and ESRD who presented to [facility] ED on 04/08 with worsening shortness of breath and anasarca, admitted for acute on chronic renal failure and initation of HD. #New onset HFrEF, EF 45% (04/08/2025) #Mild global hypokinesis noted on echocardiogram, suspicion of ischemic cardiomyopathy #Pericardial effusion status post pericardiocentesis 04/17, status post pericardial drain removal 04/19 #L pleural effusion status postthoracentesis 04/19 NYHA Class I On admission EKG, some T wave inversions seen in lead I, aVL and BNP >3000 New onset dialysis, received multiple dialysis inpatient. Echocardiogram 04/08/2025 showed normal LV size, mild global hypokinesis, ejection fraction 45%, and pericardial effusion that is moderate to large size Repeat CXR shows marked enlargement of the cardiac contour, significant vascular congestion and large left pleural effusion Pleural effusion likely transudative Pericardial effusion likely uremic considering presentation, significant amount of fluid removed Pericardial fluid drainage 04/17-950 cc, from drain 04/17 540 cc, 04/18 225 cc, 04/19 120 cc Pericardial fluid color yellow, appearance clear, WBC 6, RBC 2000, pericardial protein 4, pericardial LDH 216, glucose 147, amylase 47 Pericardial fluid cytology shows predominantly fibrin and peripheral blood elements and macrophages also seen Pleural fluid ~700cc straw, appearance hazy, WBC 311, RBC 0, polynuclear 16.7%, mononuclear 83.3%, total protein 2.4, LDH 141, glucose 158, amylase 32 - Exudative Plan: - Consulted cardiology for new onset congestive heart failure with echo changes of global hypokinesis - Continue Coreg 25 mg twice daily, losartan 25 mg daily, titrate GDMT outpatient as tolerated. - Suspicion of ischemic cardiomyopathy, patient will likely need a cardiac catheterization at some point. - Cytology form sent for pathology review for pleura fluid, follow up - Will monitor overnight. #New ESRD, likely 2/2 diabetic nephropathy and hypertensive nephrosclerosis likely DEBBY on CKD #New onset Hemodialysis Presented with creatinine of 8.0, BUN 71, and GFR of 6 and significant bilateral lower extremity edema. Previously followed a log handler, but stopped over a year ago due to insurance issues. Likely 2/2 uncontrolled diabetes exacerbated by fluid overload from possible underlying CHF vs primarily renal failure. No known history of heart failure or cardiac disease, no echo on file. BNP >3,000. Initially attempted to diurese patient, but had to transfuse 2 units of packed RBCs, which resulted in the patient becoming further fluid overloaded, worsening her shortness of breath, leading to requirement for HD. TDC placed 04/11. Received HD: 04/09, 04/10, 04/11, 04/13, 04/15, 04/18 Plan: ? Nephrology consulted, recs appreciated - PO Bumex 2 mg QD ? Strict I&O's, daily weights ? Avoid nephrotoxic medications and renally dose medications ? CTM renal panel #Normocytic anemia, anemia of chronic disease #Iron deficiency anemia Admission H&H 5.7/18. s/p 2 units of packed RBCs in the ED, which increased her H&H to 9.2/27.9. There is no signs of active bleeding, no hematemesis, denies melana and hematochezia. Likely 2/2 CKD which has now progressed to ESRD. Hgb has remained stable s/p transfusions Iron panel 04/10 shows iron 51, TIBC 247, iron saturation 20%, unsaturated iron binding 196 Plan: ? CTM H&H, transfuse if hemoglobin <7 #[id number] diabetes mellitus Patient on metformin outpatient. Hemoglobin A1c 6.4% 04/12/25. - Sliding scale insulin - Inpatient blood glucose goal 140-200 - Follow fingerstick AC - Carb consistent diet - Hypoglycemia protocol #High anion gap metabolic acidosis (resolved) #Uremia (resolved) #Hyperkalemia (resolved) #Acute hypoxic respiratory failure - resolved #Volume overload - resolved DVT Prophylaxis: Heparin GI Prophylaxis: N/A Bowel: Senna Diet: Renal Rodriguez: N/A Lines: Peripheral IV, RIJ TDC Antibiotics: N/A Case discussed with Attending Physician Dr. Sharon Kim MD Internal Medicine PGY-2 Disclaimer: This note was dictated by speech recognition. Minor errors in robotic machine operator may be present due to voice recognition software. Attending Provider Attestation/Addendum I attest that I was physically present for the evaluation, physical examination, lab and imaging review of the patient with the residents. I discussed the case with the residents and agree with the findings and plans of care as documented above. Sharon Watts MD
--- NOTE | 2025-04-19 19:13 | PC.NURSE ---
DR. WOODWARD REMOVED 20 ML FLUID PRIOR TO REMOVING DRAIN AT 1720 AT BEDSIDE. PT TOLERATED REMOVAL WELL WITH NO COMPLAINTS OF PAIN
--- NOTE | 2025-04-19 19:50 | ESPR_ITS ---
<Statement entered by Daksha Prasad MD - 04/20/25 23:06> I personally evaluated and examined this patient in ICU pericardial drainage is minimal less than 75 mL hence remove the catheter bedside echo showed no evidence of pericardial effusion patient to be transferred to telemetry after the catheter is removed. I will sign off the case unless she has significant cardiac issues and patient can be followed by primary care physician as an outpatient no further cardiac workup is needed evaluate the patient the resident physician agree with the treatment plan recommendation as documented Documentation for date of: 04/19/25 Subjective Subjective Interval history: No acute overnight events. Doing well today. Denies fever, chills, headaches, chest pain, sob, cough, GI or urinary symptoms. Exam Vital Signs Temp Pulse Resp BP Pulse Ox O2 Del Method O2 Flow Rate 99.3 F 73 18 144/76 H 97 Nasal Cannula 1.5 04/19/25 16:00 04/19/25 19:35 04/19/25 19:35 04/19/25 18:17 04/19/25 18:17 04/18/25 00:00 04/18/25 12:58 FiO2 2 04/18/25 10:00 Narrative Exam General: Overweight lady, increased work of breathing. Neurologic: GCS 15. Alert and oriented x3, no gross neurological deficit, and patient able to move all 4 extremities. HEENT: Right IJ tunneled dialysis catheter. Normocephalic, atraumatic, mucous membranes moist. Pupils reactive to light. Heart: Regular rate and rhythm, normal S1 and S2, no murmurs. Lungs: Diminished breath sounds at the left lung base. Abdomen: Soft, nondistended, nontender, positive bowel sounds. No guarding or rebound tenderness. Extremities: Trace bilateral lower extremity pitting edema. 2+ radial and dorsalis pedis pulses bilaterally. Skin: Warm. Dry. No rash or ecchymoses. Objective Labs 04/19/25 04:51 04/19/25 04:51 Labs: Laboratory Results - last 24 hr 04/19/25 04/19/25 04:51 08:15 WBC 7.0 RBC 2.63 L Hgb 7.6 L Hct 23.5 L MCV 89 MCH 28.9 MCHC 32.3 RDW Std Deviation 43.8 Plt Count 164 D Neut % (Auto) 71 Lymph % (Auto) 17 [place] % (Auto) 11 Eos % (Auto) 1 Baso % (Auto) 0 Neut # (Auto) 4.9 Lymph # (Auto) 1.2 [place] # (Auto) 0.7 Eos # (Auto) 0.1 Baso # (Auto) 0.0 Immature Gran # (Auto) 0.04 H Absolute Nucleated RBC 0.00 Immature Gran % 1 H Nucleated RBC % 0 Sodium 135 L Potassium 4.8 D Chloride 98 Carbon Dioxide 26.6 Anion Gap 10 BUN 47 H Creatinine 3.9 H D Estim Creat Clear Calc 12.3 L eGFR 13 L* BUN/Creatinine Ratio 12 Glucose 141 H Calculated Osmolality 284 Calcium 8.0 L Corrected Calcium 8.7 Phosphorus 2.8 Lactate Dehydrogenase 178 Albumin 3.1 L Pleural Color Straw Pleural Appearance Hazy Pleural WBC 311 Pleural RBC 0 Pleural Polynuclear WBC 16.7 Pleural Mononuclear WBC 83.3 Pleural Total Protein 2.4 Pleural LDH 141 Pleural Glucose 158 Pleural Amylase 32 ABG Interpretation ABG results: 04/09/25 08:41 ABG pH 7.31 L ABG pCO2 40 ABG pO2 78 L ABG HCO3 20 ABG O2 Saturation 96 ABG Base Excess -6 L Quality Measures Quality Measures VTE prophylaxis Assessment & Plan Assessment Current Active Medications: Generic Name Dose Route Start Last Admin Trade Name Freq PRN Reason Stop Dose Admin Acetaminophen 650 mg 04/08/25 21:29 Acetaminophen 325 Mg Tablet PO 05/08/25 21:28 Q6H PRN Fever >101.5 Acetaminophen 650 mg 04/08/25 21:34 Acetaminophen 325 Mg Tablet PO 05/08/25 21:33 Q6H PRN PAIN SCALE 1-3 (mild Bumetanide 2 mg 04/15/25 09:00 04/19/25 09:58 Bumetanide 0.5 Mg Tablet PO 05/15/25 08:59 2 mg QDAY TEMO Administration Calcium Carbonate 600 mg 04/09/25 09:00 04/19/25 09:57 Calcium Carbonate 600 Mg Tablet PO 05/09/25 08:59 600 mg QDAY TEMO Administration Carvedilol 25 mg 04/15/25 17:30 04/19/25 18:17 Carvedilol 12.5 Mg Tablet PO 05/15/25 17:29 25 mg BIDWM TEMO Administration Dextrose 25 ml 04/11/25 12:14 Dextrose 50%-Water Inj 50 Ml Syringe IV 05/11/25 12:13 Q15MIN PRN BG 50-70 responsive npo pt Dextrose 50 ml 04/11/25 12:14 Dextrose 50%-Water Inj 50 Ml Syringe IV 05/11/25 12:13 Q15MIN PRN BG <50 OR BG <70 & pt unresponsive Glucagon 1 mg 04/11/25 12:14 Glucagon Inj 1 Mg Vial IM Q15MIN PRN BG <70, and no IV access Heparin Sodium (Porcine) 5,000 unit 04/09/25 09:00 04/19/25 12:08 Heparin Sod Inj 5000 Unit/Ml Vial SC 04/23/25 08:59 5,000 unit Q12HR TEMO Administration Heparin Sodium (Porcine) 3,800 unit 04/11/25 16:53 04/15/25 11:05 Heparin Sod Inj 1000 Unit/Ml Vial 10 Ml INDWELLCAT 04/25/25 16:52 3,800 unit X1 PRN Administration DIALYSIS Albumin Human 25 gm in 100 mls @ 100 mls/min 04/09/25 15:50 04/18/25 11:56 Albuminar-25 Ivpb IV 100 mls/min PRN PRN Administration DIALYSIS Insulin Human Lispro 0 unit 04/11/25 17:00 04/19/25 17:21 Insulin Lispro (Admelog) 1 Unit/0.01 Ml Unit SC 05/11/25 16:59 Not Given AC [facility] Protocol Losartan Potassium 50 mg 04/17/25 09:00 04/19/25 09:57 Losartan Potassium 25 Mg Tablet PO 05/17/25 08:59 50 mg QDAY TEMO Administration Ondansetron HCl 4 mg 04/08/25 21:34 04/08/25 22:27 Ondansetron Inj 2 Mg/Ml Inj 2 Ml IVP 05/08/25 21:33 4 mg Q6H PRN Administration NAUSEA OR VOMITING Protocol Sennosides 1 tab 04/08/25 21:34 04/16/25 17:05 Senna Tablet PO 05/08/25 21:33 1 tab QDAY PRN Administration constipation Protocol Plan 54-year-old female with a past medical history of hypertension, CKD, type 2 diabetes mellitus who presented to the ED on 04/08/2025 with worsening shortness of breath, bilateral lower extremity swelling and abdominal pain for approximately 3 months. Cardiology was consulted for management of the patient's pericardial effusion. 1. Large pericardial effusion without evidence of tamponade 2. S/p pericardiocentesis, likely uremic versus less likely viral 3. New onset CHF, EF 45% likely in settings of pericardial effusion 4. Acute hypoxemic respiratory failure secondary to above and large pleural effusion 5. ESRD, new hemodialysis. A patient presented with significant shortness of breath and a BNP >3000. Initial diuresis was complicated by transfusion of 2 units of PRBCs, causing fluid overload and worsening dyspnea. Contributing factors include congestive heart failure, moderate to large pericardial effusion, and ischemia from an NSTEMI. Exam showed trace bilateral lower extremity edema. Echocardiogram on 04/08/2025 demonstrated mild global LV hypokinesis with an EF of 45%, mild mitral and tricuspid regurgitation, and a moderate to large pericardial effusion (~1?L) without overt tamponade, though mild hemodynamic compromise was noted. Shortness of breath remained significant despite hemodialysis on 04/15/2025. The patient underwent pericardiocentesis on 04/17/2025, with 900?cc of fluid removed; fluid analysis suggested a viral etiology, however uremic pericardial effusion highly suspected given her presentation. A pericardial drain remains in place, with ~250 cc collected overnight. Drainage is recommended to continue for at least two more days or until output is <100?cc in 24 hours. Thoracentesis and continued hemodialysis are also recommended. Dyspnea is expected to improve with relief of impaired ventricular filling following drainage, as is heart function. Continue with inpatient hemodialysis. Maintain K>4.0 and Mag>2.0. 04/19/2025: There is minimal output noted in pericardial drainage bag and was subsequently removed. She underwent thoracentesis today with 700 cc removed. Otherwise doing well without shortness of breath or chest pain. Bedside ultrasound showed minimal pericardial effusion. At this point, cardiology will sign off. Continue with medical management per primary team. Will follow-up closely outpatient. #High anion gap metabolic acidosis (resolved) #Uremia (resolved) #Hyperkalemia (resolved) #Normocytic anemia (resolved) #[id number] diabetes mellitus #Hypertension The remainder of the patient's problems will be managed per the patient's primary team. Case was discussed with attending physician, Dr. Prasad. Donald Hitchcock, PGY II This document was transcribed using voice recognition technology. Minor inaccuracies may be present.
[2025-04-20] VITALS (23 sets, daily range): BP systolic 115–166; BP diastolic 61–100; PULSE 61–73; RESP 16–20; TEMP 35.3–36.9; O2SAT 93–98
[2025-04-20] MEDS: INSULIN LISPRO (AdmeLOG) 1 UNIT/0.01 ML UNIT SC (00:02)
[2025-04-20 06:33] LABS: Basophils # (Auto) 0.0 Thou/mm3 (0.0-0.2); Basophils % (Auto) 0 % (0-2.5); Eosinophils # (Auto) 0.1 Thou/mm3 (0.0-0.5); Eosinophils % (Auto) 1 % (0-10); Hematocrit 24.0 % (36.0-46.0); Immature Granulocytes Auto 0.02 Thou/mm3 (0.00-0.00); Lymphocytes # (Auto) 1.0 Thou/mm3 (1.0-4.8); Lymphocytes % (Auto) 16 % (10-50); Mean Corpuscular HGB Conc 32.9 g/dl (31.0-37.0); Mean Corpuscular Hemoglobin 29.2 pg (25.0-35.0); Mean Corpuscular Volume 89 fL (80-100); Monocytes # (Auto) 0.5 Thou/mm3 (0.0-0.8); Monocytes % (Auto) 8 % (0-12); Neutrophils # (Auto) 4.6 Thou/mm3 (1.8-7.7); Neutrophils % (Auto) 74 % (37-80); Nucleated Red Blood Cell # 0.00 Thou/mm3 (0.00-0.00); Nucleated Red Blood Cell % 0 /100 WBC (0); Platelet Count 172 Thou/mm3 (140-440); RDW Standard Deviation 42.7 fL (36.4-46.3); Red Blood Count 2.71 Miln/mm3 (4.00-5.20); White Blood Count 6.3 Thou/mm3 (3.6-11.0)
[2025-04-20 06:36] LABS: Hemoglobin 7.9 g/dL (12.0-16.0)
[2025-04-20 06:58] LABS: Alanine Aminotransferase < 7 U/L (10-49); Albumin, Serum 3.0 gm/dL (3.5-5.0); Albumin/Globulin Ratio 1.4 (1.2-2.2); Alkaline Phosphatase 82 U/L (46-116); Anion Gap 8 (7-16); Aspartate Amino Transferase 10 U/L (0-34); BUN/Creatinine Ratio 13 Ratio (12-20); Bilirubin,Total 0.3 mg/dL (0.3-1.2); Blood Urea Nitrogen 65 mg/dL (9-23); Calcium 8.3 mg/dL (8.3-10.6); Calcium (Corrected) 9.1 mg/dL (8.5-10.1); Carbon Dioxide 26.6 mMol/L (20.0-31.0); Chloride 97 mMol/L (98-107); Creatinine (Component) 5.0 mg/dL (0.6-1.3); Estimated Creatinine Clearance 9.5 mL/min (>60); Globulin 2.1 gm/dL (2.3-3.5); Glucose 140 mg/dL (74-106); Magnesium 1.9 mg/dL (1.6-2.6); Osmolality,Calculated 285 (275-295); Phosphorous 2.9 mg/dL (2.4-5.1); Potassium 5.0 mMol/L (3.4-5.1); Sodium 132 mMol/L (136-145); Total Protein 5.1 gm/dL (5.7-8.2); eGFR 10 See Note
[2025-04-20] MEDS: HEPARIN SOD INJ 5000 UNIT/ML VIAL SC (08:25)
--- NOTE | 2025-04-20 08:27 | PC.NURSE ---
Spoke with Sabiha in Dialysis this morning. Patient will go to Dialysis between 12-1. Ok to give am meds that are twice a day. --Geovanny
--- NOTE | 2025-04-20 09:54 | PC.SS ---
SS spoke to Megan from [facility] Dialysis 2[facility] who explained patient's dialysis chair time has changed and Jessi will contact SS with new chair time. Pt is aware. Patient states her can to provide transportation to dialysis.
--- NOTE | 2025-04-20 10:01 | ESDS_ITS ---
<Statement entered by Manohar Kim MD - 04/21/25 10:45> Patient was seen and examined by me personally. I have reviewed the below documentation by the team resident and agree with its findings. Discharge plan was discussed with the attending, Dr. Sharon Kim MD Internal Medicine, PGY-2 Planned Discharge Date 04/20/25 DS: Providers Provider Date of admission: 04/08/25 21:16 Primary care physician: BERNIE Hunt Admitting Provider: Sharon Watts MD Attending Provider on Admission: Terrance Peter MD Consults: 04/08/25 19:13 Consult to Nephrology Stat Comment: ESRD Consulting Provider: Eliz Mcgovern 04/08/25 23:02 Health Equity Referral - Knowledge Deficit Routine Comment: Positive screening for knowledge deficit needs. Health Equity Referral - Transportation Routine Comment: Positive screening for transportation needs. Health Equity Referral - Utilities Routine Comment: Positive screening for utility assistance needs. 04/14/25 18:07 Consult to Cardiology Routine Comment: new Onset HFreF Consulting Provider: Daksha Prasad Attending Provider on DC: Sharon Watts MD Discharging Provider: Sharon Watts MD Anticipated date of discharge: 04/20/25 DS: Diagnosis Problem List Completed Was Problem List Reviewed/Reconciled?: Yes Hospital Course Hospital Course Hospital course: Hospital Course: Mrs. Crowley is a 54-year-old female with past medical history of hypertension, type 2 diabetes mellitus and chronic kidney disease who presented to [facility] emergency department on April 08, 2025 with chief complaint of shortness of breath and anasarca. Patient admitted to the hospital for acute on chronic renal failure, patient was found to have significant fluid overload status which was refractory to IV diuresis, temporary dialysis catheter was placed and patient was started on dialysis. Patient eventually received permanent dialysis catheter by interventional radiologist per nephrology recommendations, patient is new onset dialysis. Patient's fluid status improved significantly with serial dialysis and patient, otherwise patient was noted to have a pericardial effusion underwent pericardiocentesis on 04/17 had about 950 cc drained with a pericardial drain placed which was managed by cardiology eventually had less than 100 cc drainage in 24 hours drain was removed per cardiology recommendations. Patient did have a left-sided pleural effusion for which she underwent thoracentesis and had 700 cc fluid removed. Patient's echocardiogram showed mild global hypokinesis and ejection fraction 45%, patient started on GDMT Coreg and losartan. Patient symptom improved with the progression of hospital course, further plan is to discharge patient home patient is to follow-up outpatient with PCP obtain referral for cardiology, patient to continue dialysis outpatient established with Dr. Mcgovern home therapy clinician. Patient is stable for discharge, responded well to hospital treatment. Discharge Recommendations: You have been prescribed medication for your heart, please take them as directed. Please follow up with your primary care regarding pleural fluid cytology results You have been scheduled for dialysis outpatient 3 days a week Continue rest of medications as previously prescribed Return to the ED or call EMS if symptoms return and/or worsen Discharge Diagnosis: #New ESRD, likely 2/2 diabetic nephropathy and hypertensive nephrosclerosis likely DEBBY on CKD #New onset Hemodialysis #New onset HFrEF, EF 45% (04/08/2025) #Mild global hypokinesis noted on echocardiogram, suspicion of ischemic cardiomyopathy #Pericardial effusion status post pericardiocentesis 04/17, status post pericardial drain removal 04/19 #L pleural effusion status postthoracentesis 04/19 #Normocytic anemia, anemia of chronic disease #Iron deficiency anemia #Hjs-dssaany-cyfxjzswp diabetes mellitus #High anion gap metabolic acidosis (resolved) #Uremia (resolved) #Hyperkalemia (resolved) #Acute hypoxic respiratory failure - resolved #Volume overload - resolved Case discussed with Attending Physician Dr. Stefanie PLEITEZ and Senior Resident MD Patsy Parra MD Internal Medicine PGY-1 Disclaimer: This note was dictated by speech recognition. Minor errors in security system analyst may be present due to voice recognition software. Time Spent with Patient Time attestation: Total time spent providing and/or coordinating discharge services: 34 min Time spent: Greater than 30 minutes Exam Vital Signs Temp Pulse Resp BP Pulse Ox O2 Del Method O2 Flow Rate 95.5 F L 68 18 150/79 H 94 L Room Air 2 04/20/25 08:09 04/20/25 08:23 04/20/25 08:09 04/20/25 08:23 04/20/25 08:09 04/20/25 04:00 04/20/25 08:09 FiO2 2 04/20/25 04:00 Narrative Exam General: Overweight lady, increased work of breathing. Neurologic: GCS 15. Alert and oriented x3, no gross neurological deficit, and patient able to move all 4 extremities. HEENT: Right IJ tunneled dialysis catheter. Normocephalic, atraumatic, mucous membranes moist. Pupils reactive to light. Heart: Regular rate and rhythm, normal S1 and S2, no murmurs. Lungs: Diminished breath sounds at the left lung base. Abdomen: Soft, nondistended, nontender, positive bowel sounds. No guarding or rebound tenderness. Extremities: Trace bilateral lower extremity pitting edema. 2+ radial and dorsalis pedis pulses bilaterally. Skin: Warm. Dry. No rash or ecchymoses. Discharge Plan Plan Patient Disposition: HOME (Self Care) Patient condition on transfer: Stable Care Plan Goals: -Follow up with PCP within 1 week of discharge, if you do not have a primary care physician you can come see us at the [facility] by calling [phone] ([facility] [address] [address]), You can make an appointment with Dr. Kim -You have been prescribed medication for your heart, please take them as directed. -Please follow up with your primary care regarding pleural fluid cytology results -You have been scheduled for dialysis outpatient 3 days a week -Continue rest of medications as previously prescribed -Return to the ED or call EMS if symptoms return and/or worsen Dialysis at [facility] Dialysis Address: [address] [place] [address]. [phone] Thursday at 1:00pm. First session is Thursday04-21-25 at 1pm Phone number: [phone] Diet- Consistent Carbohydrate Renal Diet 1500ml Fluid Restriction Prescriptions/Referrals Prescriptions/Med Rec: New bumetanide 2 mg tablet 2 mg PO QDAY 30 Days Qty: 30 3RF carvedilol 12.5 mg Tablet 25 mg PO BIDWM 30 Days Qty: 60 3RF losartan 50 mg tablet 50 mg PO QDAY 30 Days Qty: 30 3RF Januvia 25 mg tablet 25 mg PO QDAY Qty: 30 3RF Discontinued metformin 1,000 mg tablet 1,000 mg PO BID hydrochlorothiazide 25 mg tablet 25 mg PO QAM Referrals: Tonja Treadwell FNP [Primary Care Provider] - Patient/Caregiver Discharge Instructions Discharge Activity: activity as tolerated Education Materials: Thoracentesis Dc, Kidney Disease Fluid Intake Print Language: [place] Stand Alone Forms: Ramonita Award Info., Patient Portal Info Letter Discharge Order Discharge Orders: Discharge (Routine); Ordered 04/20/25 Ordered By: Lorena Peter Quality Discharge Quality Measures VTE prophylaxis MD Attestestation MD Attestation I attest that I was physically present for the evaluation, physical examination, lab and imaging review of the patient with the residents. I discussed the case with the residents and agree with the findings and plans of care as documented above. Sharon Watts MD
--- NOTE | 2025-04-20 12:29 | PC.SS ---
Addendum entered by Qi Olivo 04/20/25 13:47: SS also provided pt with [employer] phone# SS provided Celia PABON with [employer] form incase pt is requiring transportation home. Addendum entered by Qi Olivo 04/20/25 12:35: states he will provide transportation home today. Original Note: SS received call from Jessi at [facility] Dialysis and patient's new chair time is Thursday at 1:00pm. First session is Thursday04-21-25 at 1pm. SS provided pt with [employer] with dialysis chair time, address, and phone#. SS reviewed the information with pt. SS also provided with dialysis information and is aware and is agreeable to take pt to dialysis. Pt and are aware to follow up with her health insurance for managed plan.
[2025-04-20] MEDS: HEPARIN SOD INJ 1000 UNIT/ML VIAL 10 ML 3800 UNIT INDWELLCAT (17:24)
--- NOTE | 2025-04-20 17:45 | PC.NURSE ---
Pt returned from dialysis; awake, alert, and oriented on room air. Denies pain, nausea, or shortness of breath. Spouse and daughter at bedside. Awaiting discharge after dinner. Will continue to monitor at this time.
== END 2025-04-20 19:00 | disposition home or self-care (01) | DRG 469 ==
LOC: SERX 21:24 → SERHOLD 21:58 → S2NX 22:38 → S3NX 04-10 23:12 → S2SX 04-17 12:23 → S3SX 04-19 22:35
PROVIDERS: Internal Medicine Cardiovascular Disease; Internal Medicine Nephrology; Nurse Practitioner Primary Care; Student in an Organized Health Care Education/Training Program; Admitting Provider Student in an Organized Health Care Education/Training Program; Emergency Provider Emergency Medicine; PCP Registered Nurse Community Health; Visit Provider Student in an Organized Health Care Education/Training Program
DX: N17.9 Acute kidney failure, unspecified (principal); I13.2 Hypertensive heart and chronic kidney disease with heart failure and with stage 5 chronic kidney disease, or end stage renal disease; I24.89 Other forms of acute ischemic heart disease; N18.6 End stage renal disease; D63.1 Anemia in chronic kidney disease; E11.22 Type 2 diabetes mellitus with diabetic chronic kidney disease; E87.5 Hyperkalemia; E11.65 Type 2 diabetes mellitus with hyperglycemia; E83.51 Hypocalcemia; E87.20 Acidosis, unspecified; D50.9 Iron deficiency anemia, unspecified; K42.9 Umbilical hernia without obstruction or gangrene; I50.22 Chronic systolic (congestive) heart failure; N27.1 Small kidney, bilateral; Z59.71 Insufficient health insurance coverage; Z60.3 Acculturation difficulty; Z67.41 Type O blood, Rh negative; J91.8 Pleural effusion in other conditions classified elsewhere; Z79.4 Long term (current) use of insulin; Z79.82 Long term (current) use of aspirin; Z79.84 Long term (current) use of oral hypoglycemic drugs; Z79.899 Other long term (current) drug therapy; N25.81 Secondary hyperparathyroidism of renal origin; Z99.2 Dependence on renal dialysis; J96.01 Acute respiratory failure with hypoxia; I25.2 Old myocardial infarction; E66.9 Obesity, unspecified; I31.39 Other pericardial effusion (noninflammatory); Z86.32 Personal history of gestational diabetes; I08.1 Rheumatic disorders of both mitral and tricuspid valves
CPT/HCPCS: 36415; 36430; 36600; 71045; 71046; 76705; 76770; 76937; 77001; 80053; 80069; 80074; 80307; 81001; 82150; 82607; 82728; 82746; 82803; 82945; 83036; 83540; 83550; 83615; 83690; 83735; 83880; 83970; 84100; 84157; 84443; 84484; 85025; 85610; 85730; 86580; 86850; 86900; 86901; 86923; 87070; 87075; 87205; 87811; 89051; 93005; 93225; 93306; 94640; 94660; 96365; 96375; 99152; 99153; 99284; 99308; A4649; C1729; C1894; J0168; J0360; J0461; J0613; J1642; J1643; J1644; J1815; J1938; J2250; J2312; J2371; J2405; J3010; J3475; J3490; J7050; P9016; P9047; Q5105; Q5106; A9270

== ENCOUNTER 2025-05-06 17:06 | Emergency (ER) | payer MEDICAID, SELFPAY ==
[2025-05-06 17:07] VITALS: BMI 25.7
[2025-05-06 17:45] VITALS: BP 150/70; PULSE 71; RESP 18; TEMP 36.9; O2SAT 99
--- NOTE | 2025-05-06 17:54 | EKG_ITS ---
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
--- NOTE | 2025-05-06 17:54 | XR_ITS ---
Examination: PA lateral chest 2 views Technique: Upright PA lateral chest 2 views Date and time: May 06, 2025, 1804 hrs. Indications: Difficulty breathing this week, diagnosis pericardial effusion. Findings: Moderate enlargement cardiac contour. Prominent vascular congestion. Small right moderate left pleural effusions. There is right internal jugular dialysis catheter tip satisfactory position Impression: Mild chronic heart failure pattern
--- NOTE | 2025-05-06 17:54 | PD.EDRME ---
Rapid Medical Screening Exam RME Arrival date/time: 05/06/25 17:06 This is a 54-year-old female who was discharged from the hospital over a week ago for multiple medical issues comes into the emergency room because she was told that she is anemic and needed a blood transfusion. Patient has a past medical history of hypertension, type 2 diabetes mellitus and chronic kidney who is now on dialysis. Patient had dialysis today. Patient was recently admitted on April 08, 2025 with chief complaint of shortness of breath and anasarca. Patient admitted to the hospital for acute on chronic renal failure, patient was found to have significant fluid overload status which was refractory to IV diuresis. Patient eventually received permanent dialysis catheter. During admission noted to have a pericardial effusion underwent pericardiocentesis on 04/17 had about 950 cc drained with a pericardial drain placed which was managed by cardiology. Patient did have a left-sided pleural effusion for which she underwent thoracentesis and had 700 cc fluid removed. Pt denies cxp and sob. I have greeted and performed a focused initial assessment of this patient. Initial appropriate labs ordered at this time. A comprehensive ED assessment and evaluation of the patient and analysis of all test and completion of medical decision making process will be conducted by additional ED provider. Chief Complaint: General Adult/Misc Complain Time Seen by Provider: 05/06/25 17:53 Vital signs: Vital Signs Temperature 98.5 F 05/06/25 17:45 Pulse Rate 71 05/06/25 17:45 Respiratory Rate 18 05/06/25 17:45 Blood Pressure 150/70 H 05/06/25 17:45 Pulse Oximetry (%) 99 05/06/25 17:45 Oxygen Delivery Method Room Air 05/06/25 17:45
[2025-05-06 18:28] LABS: Basophils # (Auto) 0.0 Thou/mm3 (0.0-0.2); Basophils % (Auto) 0 % (0-2.5); Eosinophils # (Auto) 0.1 Thou/mm3 (0.0-0.5); Eosinophils % (Auto) 1 % (0-10); Hematocrit 24.7 % (36.0-46.0); Immature Granulocytes Auto 0.01 Thou/mm3 (0.00-0.00); Lymphocytes # (Auto) 0.8 Thou/mm3 (1.0-4.8); Lymphocytes % (Auto) 23 % (10-50); Mean Corpuscular HGB Conc 31.2 g/dl (31.0-37.0); Mean Corpuscular Hemoglobin 28.7 pg (25.0-35.0); Mean Corpuscular Volume 92 fL (80-100); Monocytes # (Auto) 0.2 Thou/mm3 (0.0-0.8); Monocytes % (Auto) 7 % (0-12); Neutrophils # (Auto) 2.4 Thou/mm3 (1.8-7.7); Neutrophils % (Auto) 68 % (37-80); Nucleated Red Blood Cell # 0.00 Thou/mm3 (0.00-0.00); Nucleated Red Blood Cell % 0 /100 WBC (0); Platelet Count 118 Thou/mm3 (140-440); RDW Standard Deviation 50.6 fL (36.4-46.3); Red Blood Count 2.68 Miln/mm3 (4.00-5.20); White Blood Count 3.5 Thou/mm3 (3.6-11.0)
[2025-05-06 18:36] LABS: Hemoglobin 7.7 g/dL (12.0-16.0)
[2025-05-06 18:39] LABS: INR 1.0 (0.9-1.3); Prothrombin Time 10.9 Seconds (9.0-12.2)
[2025-05-06 18:44] LABS: B-Type Natriuretic Peptide 2383 pg/mL (0-100)
[2025-05-06 18:57] LABS: Alanine Aminotransferase 9 U/L (10-49); Albumin, Serum 3.6 gm/dL (3.5-5.0); Albumin/Globulin Ratio 1.2 (1.2-2.2); Alkaline Phosphatase 112 U/L (46-116); Anion Gap 9 (7-16); Aspartate Amino Transferase 16 U/L (0-34); BUN/Creatinine Ratio 6 Ratio (12-20); Bilirubin,Total 0.5 mg/dL (0.3-1.2); Blood Urea Nitrogen 16 mg/dL (9-23); Calcium 8.3 mg/dL (8.3-10.6); Calcium (Corrected) 8.6 mg/dL (8.5-10.1); Carbon Dioxide 29.6 mMol/L (20.0-31.0); Chloride 98 mMol/L (98-107); Creatinine (Component) 2.5 mg/dL (0.6-1.3); Estimated Creatinine Clearance 24.4 mL/min (>60); Globulin 2.9 gm/dL (2.3-3.5); Glucose 142 mg/dL (74-106); Osmolality,Calculated 277 (275-295); Potassium 4.4 mMol/L (3.4-5.1); Sodium 137 mMol/L (136-145); Total Protein 6.5 gm/dL (5.7-8.2); Troponin I 0.020 ng/mL (0.0-0.045); eGFR 22 See Note
--- NOTE | 2025-05-06 19:25 | EDNOTE_ITS ---
ED General RME/HPI General Chief complaint: General Adult/Misc Complain Stated complaint: LOW HGB ON 05/04/25 Time Seen by Provider: 05/06/25 17:53 Arrival date/time: 05/06/25 17:06 RME / HPI RME / HPI narrative: 54-year-old female who was discharged from the hospital over a week ago for multiple medical issues comes into the emergency room because she was told that she is anemic and needed a blood transfusion. Patient has a past medical history of hypertension, type 2 diabetes mellitus and chronic kidney who is now on dialysis. Patient had dialysis today. Patient was recently admitted on April 08, 2025 with chief complaint of shortness of breath and anasarca. Patient admitted to the hospital for acute on chronic renal failure, patient was found to have significant fluid overload status which was refractory to IV diuresis. Patient eventually received permanent dialysis catheter. During admission noted to have a pericardial effusion underwent pericardiocentesis on 04/17 had about 950 cc drained with a pericardial drain placed which was managed by cardiology. Patient did have a left-sided pleural effusion for which she underwent thoracentesis and had 700 cc fluid removed. Pt denies cxp and sob. Related Data Previous Rx's ?Medication ?Instructions ?Recorded bumetanide 2 mg tablet 2 mg PO QDAY 30 days #30 tab s 04/20/25 carvedilol 12.5 mg tablet 25 mg (2 x 12.5 mg) PO BIDWM 30 04/20/25 days #60 tabs losartan 50 mg tablet 50 mg PO QDAY 30 days #30 ta bs 04/20/25 sitagliptin phosphate 25 mg tablet 25 mg PO QDAY #30 t abs 04/20/25 (Januvia) Allergies Allergy/AdvReac Type Severity Reaction Status Date / Time No Known Allergies Allergy Verified 05/06/25 17:09 Review of Systems Review of Systems Narrative Review of Systems: Review of system reviewed and within normal limits except mentioned in HPI ED Exam Narrative Physical exam: VITAL SIGNS: Reviewed. GENERAL APPEARANCE: Alert and interactive, follows commands, no acute distress, HEAD AND FACE: Non-traumatic. ENT: PERRL, pale conjunctiva, eyelid no trauma, Mucous membrane moist. NECK: Supple, nontender, no nuchal rigidity. CHEST: No tenderness, no crepitus, no paradoxical movement, no retractions. LUNGS: Clear, well ventilated, symmetric, no rales, no wheezing, no ronchi, no stridor, good breath sounds bilaterally. HEART: Regular rate, regular rhythm, no murmur, no gallops. ABDOMEN: Soft, positive bowel sounds, nondistended, no guarding, nontender, no rebound, no masses, RECTAL: Deferred. GENITAL: Deferred. NEUROLOGICAL: Gross motor function intact sensory function intact, Appropriate for age. MUSCULOSKELETAL: low back nontender, full range of motion. EXTREMITIES: Nontender, full range of motion. SKIN: Color pale, dry, no rash, no lacerations, no abrasions, no contusions. LYMPHATICS: Deferred. Course Quality Measures none Orders Category Date Time Status EKG (ED ONLY) *Do not use* NOW Care 05/06/25 17:54 Completed EKG (ED Only) Stat Exams 05/06/25 17:54 Draft XR chest 2V Stat Exams 05/06/25 17:54 Taken BNP [B-Type Natriuretic Peptide] Stat Lab 05/06/25 18:21 Completed CBC Stat Lab 05/06/25 18:21 Completed Comprehensive Metabolic Panel Stat Lab 05/06/25 18:21 Completed PT [Prothrombin Time with INR] Stat Lab 05/06/25 18:21 Completed Troponin I Stat Lab 05/06/25 18:21 Completed Type and Screen Stat Lab 05/06/25 18:21 Completed Vital Signs Vital signs: Vital Signs Temperature 98.5 F 05/06/25 17:45 Pulse Rate 71 05/06/25 17:45 Respiratory Rate 18 05/06/25 17:45 Blood Pressure 150/70 H 05/06/25 17:45 Pulse Oximetry (%) 99 05/06/25 17:45 Oxygen Delivery Method Room Air 05/06/25 17:45 Discharge Plan Plan Patient Disposition: HOME (Self Care) Discharge Disposition comment: Stable Prescriptions/Referrals Prescriptions/Med Rec: No Action bumetanide 2 mg tablet 2 mg PO QDAY 30 Days Qty: 30 3RF carvedilol 12.5 mg Tablet 25 mg PO BIDWM 30 Days Qty: 60 3RF losartan 50 mg tablet 50 mg PO QDAY 30 Days Qty: 30 3RF Januvia 25 mg tablet 25 mg PO QDAY Qty: 30 3RF Referrals: No Primary/Family,Physician [Primary Care Provider] - In 1 week Problem List Clinical Impression: End-stage renal disease (ESRD), Anemia Patient/Caregiver Discharge Instructions Discharge Activity: activity as tolerated Education Materials: Anemia Additional Instructions: Thank you for the opportunity for serving you today. You are stable for discharged . You are advised to: Follow-up with your PCP in 1 to 2 days Return to ED for worsening of symptoms Print Language: [place] Stand Alone Forms: Ramonita Award Info., Patient Portal Info Letter LIZETT/BERNIE Supervising Physician CR Supervising Physician: MD Nikhil MDM Narrative MDM hospital course: 54-year-old female who was discharged from the hospital over a week ago for multiple medical issues comes into the emergency room because she was told that she is anemic and needed a blood transfusion. Patient has a past medical history of hypertension, type 2 diabetes mellitus and chronic kidney who is now on dialysis. Patient had dialysis today. Patient was recently admitted on April 08, 2025 with chief complaint of shortness of breath and anasarca. Patient admitted to the hospital for acute on chronic renal failure, patient was found to have significant fluid overload status which was refractory to IV diuresis. Patient eventually received permanent dialysis catheter. During admission noted to have a pericardial effusion underwent pericardiocentesis on 04/17 had about 950 cc drained with a pericardial drain placed which was managed by cardiology. Patient did have a left-sided pleural effusion for which she underwent thoracentesis and had 700 cc fluid removed. Pt denies cxp and sob. Differential diagnosis include anemia secondary to chronic kidney disease, iron deficiency anemia, congestive heart failure, ESRD Patient's hemoglobin today was noted to be 7.7, hematocrit of 24.7. Patient potassium today was noted to be 4.4. Creatinine 2.[address] Mcgovern who told me that patient can be discharged without giving a blood transfusion in the emergency room Stable for charge home
== END 2025-05-06 19:30 | disposition home or self-care (01) ==
PROVIDERS: Nurse Practitioner Family; Emergency Provider Emergency Medicine
DX: D64.9 Anemia, unspecified (principal); E11.22 Type 2 diabetes mellitus with diabetic chronic kidney disease; I12.0 Hypertensive chronic kidney disease with stage 5 chronic kidney disease or end stage renal disease; N18.6 End stage renal disease; Z99.2 Dependence on renal dialysis; J90 Pleural effusion, not elsewhere classified
CPT/HCPCS: 36415; 71046; 80053; 83880; 84484; 85025; 85610; 86850; 86900; 86901; 93005; 99283

== ENCOUNTER 2025-08-10 12:00 | Day surgery (SDC) | payer MEDICAID, SELFPAY ==
[2025-08-07 08:25] VITALS: BMI 24.0
[2025-08-07 09:24] LABS: Basophils # (Auto) 0.0 Thou/mm3 (0.0-0.2); Basophils % (Auto) 1 % (0-2.5); Eosinophils # (Auto) 0.1 Thou/mm3 (0.0-0.5); Eosinophils % (Auto) 2 % (0-10); Hematocrit 34.0 % (36.0-46.0); Hemoglobin 11.1 g/dL (12.0-16.0); Immature Granulocytes Auto 0.01 Thou/mm3 (0.00-0.00); Lymphocytes # (Auto) 1.3 Thou/mm3 (1.0-4.8); Lymphocytes % (Auto) 24 % (10-50); Mean Corpuscular HGB Conc 32.6 g/dl (31.0-37.0); Mean Corpuscular Hemoglobin 29.8 pg (25.0-35.0); Mean Corpuscular Volume 91 fL (80-100); Monocytes # (Auto) 0.3 Thou/mm3 (0.0-0.8); Monocytes % (Auto) 6 % (0-12); Neutrophils # (Auto) 3.9 Thou/mm3 (1.8-7.7); Neutrophils % (Auto) 68 % (37-80); Nucleated Red Blood Cell # 0.00 Thou/mm3 (0.00-0.00); Nucleated Red Blood Cell % 0 /100 WBC (0); Platelet Count 144 Thou/mm3 (140-440); RDW Standard Deviation 41.8 fL (36.4-46.3); Red Blood Count 3.73 Miln/mm3 (4.00-5.20); White Blood Count 5.7 Thou/mm3 (3.6-11.0)
[2025-08-07 09:59] LABS: INR 1.0 (0.9-1.3); Partial Thromboplastin Time 26.8 Seconds (22.0-36.0); Prothrombin Time 10.3 Seconds (9.0-12.2)
[2025-08-07 10:09] LABS: Alanine Aminotransferase 52 U/L (10-49); Albumin, Serum 4.2 gm/dL (3.5-5.0); Albumin/Globulin Ratio 1.3 (1.2-2.2); Alkaline Phosphatase 128 U/L (46-116); Anion Gap 15 (7-16); Aspartate Amino Transferase 24 U/L (0-34); BUN/Creatinine Ratio 13 Ratio (12-20); Bilirubin,Total 0.2 mg/dL (0.3-1.2); Blood Urea Nitrogen 78 mg/dL (9-23); Calcium 8.2 mg/dL (8.3-10.6); Calcium (Corrected) 8.2 mg/dL (8.5-10.1); Carbon Dioxide 22.1 mMol/L (20.0-31.0); Chloride 100 mMol/L (98-107); Creatinine (Component) 5.8 mg/dL (0.6-1.3); Estimated Creatinine Clearance 8.6 mL/min (>60); Globulin 3.3 gm/dL (2.3-3.5); Glucose 120 mg/dL (74-106); Osmolality,Calculated 298 (275-295); Potassium 5.7 mMol/L (3.4-5.1); Sodium 137 mMol/L (136-145); Total Protein 7.5 gm/dL (5.7-8.2); eGFR 8 See Note
--- NOTE | 2025-08-09 14:52 | SUR.PREOP ---
Pt notified to come in at 1200 tomorrow
[2025-08-10] VITALS (10 sets, daily range): BP systolic 113–199; BP diastolic 61–90; PULSE 64–71; RESP 11–18; TEMP 36.2–36.6; O2SAT 96–100; BMI 23.9
[2025-08-10] MEDS: SODIUM CHLORIDE 0.9% 500 ML 500 ML 20 ML IV (13:11)
[2025-08-10 13:40] LABS: Potassium 4.2 mMol/L (3.4-5.1)
--- NOTE | 2025-08-10 15:24 | PD.SUROPNT ---
Date of Procedure 08/10/25 Pre Op Diagnosis End-stage renal disease Post Op Diagnosis Same as pre-op diagnosis Procedure Creation of arteriovenous fistula between the proximal radial artery and the cephalic vein Findings There is excellent flow in the AV fistula Procedure Description With the patient supine under laryngeal mask anesthesia the left upper extremity was sterilely prepped and draped. A timeout was performed. A venous tourniquet was placed on the upper arm and ultrasound was used to evaluate the cephalic vein and confirm that it was suitable for for AV fistula creation. The patient had a good size normal radial artery proximally which will be used for the inflow. At this point a slightly oblique incision was then made on the volar aspect of the upper part of the forearm and the subcutaneous tissues were dissected with electrocautery. The median cubital vein was in continuity with both the basilic and cephalic veins and was dissected free from surrounding tissues, ligated distally and mobilized. The dissection was then deepened through the bicipital aponeurosis to expose the radial artery. Radial artery was then crossclamped proximally distally along show arteriotomy is made. Stay sutures were placed. At this point the vein was cut to size and sewn to the artery with a combination of interrupted and running 7-0 Prolene sutures. Before completion the artery was forward flushed and back flushed, the vein was back flushed and the anastomotic area was copiously irrigated with heparin saline. The anastomosis was completed and flow was established. The branch to the basilic vein was ligated so that the cephalic vein alone would develop as the fistula there was excellent flow at the end the procedure. Hemostasis was then obtained and the wound was closed with 3-0 Vicryl the subcutaneous tissues and a 4 Monocryl subcuticular skin closure. A Dermabond dressing was applied. Patient woke up from anesthesia and is much recovery in stable condition Anesthesia other (Laryngeal mask anesthesia) Implants Implants comments: None Pathology / specimen None Estimated Blood Loss 20 Condition Stable Disposition PACU Surgeon Edouard Briseno MD Surgical Staff Operation Date: 08/10/25 15:30 Case Staff Anesthesiologist: Alfonso Ewing RN First Assistant: Susy Lou RNeducation professor: Rachel Haynes
--- NOTE | 2025-08-10 16:18 | SUR.PHASEII ---
pt able to tolerate oral fluids without difficulty swallowing or nausea/vomiting.
--- NOTE | 2025-08-10 16:32 | SUR.PHASEII ---
report given to Arabella CEBALLOS at this time.
--- NOTE | 2025-08-10 16:55 | SUR.PHASEII ---
Pt. meets criteria for discharge, VSS, no c/o pain or nausea at this time, pt. tolerating oral fluids, dressing to left upper arm CDI, no active bleeding or redness noted, discharge instructions provided to pt. and pt.'s with use of planning supervisor services, verbalized understanding, IV discontinued without complications, pt. escorted to vehicle with all of belongings via w/c by staff.
== END 2025-08-10 16:55 | disposition home or self-care (01) ==
PROVIDERS: Anesthesiology; PCP Registered Nurse Community Health; Referring Provider Surgery Vascular Surgery; Visit Provider Surgery Vascular Surgery
PROC: (CPT 36825; principal; 2025-08-10 15:30)
DX: N18.6 End stage renal disease (principal)
CPT/HCPCS: 36821; 36415; 80053; 84132; 85025; 85610; 85730; A4216; A4649; J0131; J0690; J1100; J1171; J1643; J1644; J2250; J2405; J2440; J2704; J3010; J3490; J7999; A9270; J0665